=== PATIENT | male | born 1955 | race Caucasian/White ===

== ENCOUNTER 2020-03-01 20:13 | Inpatient (IN) | payer MEDICARE ==
[~2020-03-01] VITALS: Ht 177.8 cm; Wt 60.6 kg
[2020-03-01 20:00] VITALS: BP 160/84
--- NOTE | 2020-03-01 20:00 | NUR ---
Pt came in by EMS, oriented to himself, but confused of where he was. 4Ls NC with saturations of 98%. Titrated down to 2L. SR/ST on monitor. Shi to dd clear. Chest tube on right lateral side. 2 bags of belongings- one with medications that were sent to pharmacy and the other with clothes. PIV x2 saline locked. Called Dr. Mendoza for orders.
[2020-03-01] MEDS ORDERED: ONDANSETRON PF 4 MG/2 ML VIAL. IVP PRN (20:45)
[2020-03-01] MEDS: MORPHINE SULFATE 4 MG/ML VIAL. IV PRN (20:52)
[2020-03-01 21:00] VITALS: BP 150/79
[2020-03-01 21:03] LABS: BASO # 0.1 x10^3/uL (0.0-0.2); BASO % 1 % (0-3); EOS % 0 % (0-3); HEMATOCRIT 30.2 % (39.0-53.0); HEMOGLOBIN 9.9 g/dL (13.0-17.5); LYMPH # 0.7 x10^3/uL (1.0-4.8); LYMPH % 6 % (24-48); MEAN CORPUSCULAR HEMOGLOBIN 27 pg (25-35); MEAN CORPUSCULAR HGB CONC 33 g/dL (31-37); MEAN CORPUSCULAR VOLUME 83 fL (79-100); MONO % 9 % (0-9); NEUT # 9.7 x10^3/uL (1.8-7.7); NEUT % 85 % (31-73); PLATELET COUNT 424 x10^3/uL (140-400); RED BLOOD COUNT 3.62 x10^6/uL (4.30-5.70); RED CELL DISTRIBUTION WIDTH 17.4 % (11.5-14.5); WHITE BLOOD COUNT 11.4 x10^3/uL (4.0-11.0)
[2020-03-01 21:12] LABS: CALCIUM 8.7 mg/dL (8.5-10.1); CREATININE 0.8 mg/dL (0.7-1.3); POTASSIUM 3.7 mmol/L (3.5-5.1)
--- NOTE | 2020-03-01 21:13 | RAD ---
Exam: Chest one view INDICATION: Chest tube insertion TECHNIQUE: Frontal view of the chest Comparisons: Radiograph same day FINDINGS: Right-sided chest tube, which is been advanced now terminates in the left infrahilar region. The cardiomediastinal silhouette and pulmonary vessels are within normal limits. The lung and pleural spaces are clear. No pneumothorax is seen. Extensive subcutaneous emphysema is noted. IMPRESSION: Chest tube as described above. Electronically signed by: Chalino Garcia MD (03/01/2020 9:10 PM) [id number]
[2020-03-01] MEDS ORDERED: SERT100T PO (21:22)
[2020-03-01] MEDS ORDERED: DOCU50LI PO (21:22)
[2020-03-01] MEDS ORDERED: SENN8.6T11 PO (21:22)
[2020-03-01] MEDS ORDERED: CHLO15MO2 PO (21:22)
[2020-03-01] MEDS ORDERED: HYDR25TA PO (21:22)
[2020-03-01] MEDS ORDERED: OLOD4MIS2 IH (21:22)
[2020-03-01] MEDS ORDERED: TRAM50TA PO (21:22)
[2020-03-01] MEDS ORDERED: CLONAZEPAM1 MG PO (21:22)
[2020-03-01] MEDS ORDERED: MONT10TA49 PO (21:22)
[2020-03-01] MEDS ORDERED: AMLO10TA8 PO (21:22)
[2020-03-01] MEDS ORDERED: PANT40TA77 PO (21:22)
[2020-03-01] MEDS ORDERED: NYST100054 PO (21:22)
[2020-03-01] MEDS ORDERED: TAMS0.4C97 PO (21:22)
[2020-03-01] MEDS ORDERED: ACET325T21 PO (21:22)
[2020-03-01] MEDS ORDERED: BISM262T94 PO (21:22)
[2020-03-01] MEDS ORDERED: FERR-3 PO (21:22)
[2020-03-01] MEDS ORDERED: POLY2500 MC (21:22)
[2020-03-01] MEDS ORDERED: SUCR1ORA14 PO (21:22)
[2020-03-01] MEDS: MEROPENEM 1 GM in IV NORMAL SALINE 100ML 100 ML IV SCH (21:51)
[2020-03-01 22:00] VITALS: BP 163/86
[2020-03-01] MEDS ORDERED: VANCOMYCIN 1.5 GM in IV NORMAL SALINE 500ML BAG 500 ML IV ONE (22:00)
[2020-03-01 23:00] VITALS: BP 154/76
[2020-03-01] MEDS ORDERED: HYDROmorphone 2 MG/ML VIAL IVP PRN (23:15)
[2020-03-02] VITALS (23 sets, daily range): BP systolic 90–156; BP diastolic 52–93
[2020-03-02] MEDS: DEXMEDETOMIDINE 400 MCG in IV NORMAL SALINE 100ML 96 ML IV PRN ×3 (00:52→17:00)
[2020-03-02] MEDS: HALOPERIDOL LACTATE 5 MG/ML VIAL. IVP PRN ×2 (00:52→05:17)
--- NOTE | 2020-03-02 01:00 | NUR ---
Pt began to pull at this wetzel. Started to yell about wanting a cigarette, Joel and I told him repeatedly he can not because he is in the hospital and has 2 broken ribs. He became aggressive and continued to try and get out of bed. Called Dr. Mendoza with situation and was prescribed Precedex drip. Haldol was given as well. Pt is now resting stable, after titrating precedex drip. Vitals are stable.
[2020-03-02] MEDS: VANCOMYCIN PER PHARMACY MC PRN (01:31)
--- NOTE | 2020-03-02 01:31 | NUR ---
Pharmacy Vancomycin Dosing Note S:Consulted to monitor and dose vancomycin started 03/01/20. O:NAT BEYER is a 64 year old M with Empiric . Height: 5 feet, 10 inches Weight: 60.8 kg Pinch Body Weight: 73.00 Adjusted Body Weight: 68.12 Dosing Weight: Actual Other Antibiotics: MERREM 1 GM Q8H LABS: Last BUN: 9 Last Creatinine: 0.8 Creatinine Clearance: 63 mL/min Last WBC: 11.4 Last Procalcitonin: Tmax (past 24 hours): 98.4 Microbiology: I/O: Drug Levels: Last level: on at Last dose given 03/01/20 at 2200 Vancomycin Dosing: Loading Dose: 1500 mg x1 Dosing Weight: Actual Target Trough: 15-20 A: Based on: WT AND CRCL P: 1. Begin Vancomycin 1000 mg IV q12h 2. Follow up Trough level on 03/03/20 at 0930 3. Pharmacy will continue to monitor, follow and adjust therapy as needed. HAL HERMOSILLO RPH, 03/02/20 0131 Signed: 03/02/20 at 0132 by HAL HERMOSILLO RPH PHA
[2020-03-02] MEDS: MEROPENEM 1 GM in IV NORMAL SALINE 100ML 100 ML IV SCH ×3 (06:29→20:59)
[2020-03-02] MEDS ORDERED: ALBU2.5V8 IH (07:17)
--- NOTE | 2020-03-02 07:34 | CONS ---
DATE OF CONSULTATION: 03/02/2020 REASON FOR CONSULTATION: I was asked to see this 64-year-old gentleman for acute respiratory failure, pneumothorax, rib fractures. HISTORY OF PRESENT ILLNESS: The patient has been agitated, so now he is on Precedex. He does not answer too many of my questions. He appears comfortable. He is on 2 liters of oxygen. All of the information was obtained from nursing staff and chart. Apparently, he is a heavy smoker, has COPD and multiple other medical problems. Per his roommate, he was angry and took his psych medication and sleeping pills 3 times more than usual. He became dizzy and had a syncopal episode or fall and was taken to [facility] Emergency Room and was found to have right pneumothorax and rib fractures. A chest tube was placed, which was not in good position, so another one placed which was in good position. The lung expanded after the second chest tube. This was done around 5:00 p.m. yesterday. He was transferred to [facility] yesterday around 8:00 p.m. He is on oxygen. He is on Precedex. He appears comfortable. He does not answer my questions. He does have cough. His exposure to COVID-19 is not known. Testing is done. PAST MEDICAL HISTORY: Alcoholism, anemia, anxiety, arthritis, coronary artery disease, COPD, CVA, gastroesophageal reflux disease, hypertension, pancreatitis, TIA, sleep, posttraumatic stress disorder, bipolar disorder, noncompliant. ALLERGIES: PENICILLIN, SULFA, ASPIRIN, LABETALOL, QUETIAPINE AND ZOLPIDEM. MEDICATIONS: Currently, he is on vancomycin, Precedex, meropenem. SOCIAL HISTORY: Positive for smoking and alcohol. FAMILY HISTORY: Unable to obtain. The patient does not answer my questions. FAMILY HISTORY: Unable to obtain. I have discussed the patient with RN and RT as mentioned as above. PHYSICAL EXAMINATION: GENERAL: This is a chronically ill-appearing gentleman. He is alert, but does not answer my questions. He is on Precedex. VITAL SIGNS: His O2 saturation on 2 liters of oxygen is 98%, respiratory rate 16, heart rate 79, blood pressure 104/70, and temperature 98.3. HEENT: He has a laceration on his right side of his head. Normocephalic. He appears comfortable. He is on oxygen. CARDIOVASCULAR: Regular rate and rhythm. CHEST: He has a chest tube on the right side. ABDOMEN: There is no paradoxical abdominal motion. EXTREMITIES: No edema. SKIN: He has tattoos. LABORATORY DATA: I reviewed the following lab data; WBC 11.4, hemoglobin 9.9, platelets 424. Sodium 136, potassium 3.7, chloride 101, CO2 of 30, BUN 9, creatinine 0.8. In [facility], his INR 1. Urine drug screen is negative. ABG on 03/01 at 1:00 a.m., pH 7.4, pCO2 of 30, pO2 of 53 on room air. Salicylic acid less than 2.8. Alcohol less than 10. CT of the head, no acute abnormality. Chest x-ray as mentioned as above. IMPRESSION: 1. Acute respiratory failure, multifactorial in etiology including right pneumothorax, rib fractures ? lung contusion, chronic obstructive pulmonary disease. 2. Status post fall. 3. Abnormal chest x-ray. 4. Rib fractures. 5. Right pneumothorax, status post chest tube placement. 6. Chronic obstructive pulmonary disease. 7. History of cerebrovascular accident. 8. B Coronary artery disease. 9. Alcohol abuse per history. 10. Hypertension. 11. COVID-19 PUI. 12. Tobacco habituation. PLAN AND RECOMMENDATIONS: 1. Titrate FiO2 to keep O2 saturation more than 92%. 2. Follow up COVID-19 testing. 3. Continue chest tube. We will do a chest x-ray. 4. Continue antibiotic. 5. Add Pepcid for stress ulcer prophylaxis. 6. SCDs for DVT prophylaxis. 7. Start bronchodilator when his COVID-19 testing is back and is negative. 8. The findings and recommendations were discussed with RN. Thank you very much for allowing me to participate in care of this very nice gentleman. MALINDA MARIE M.D. : Nava JOB#: [id number] / [id number]
[2020-03-02] MEDS ORDERED: ALBUTEROL SULFATE 2.5 MG/3 ML NEBU. INH PRN (09:15)
[2020-03-02] MEDS ORDERED: SENNOSIDES 8.6 MG TABLET PO PRN (09:15)
[2020-03-02] MEDS: ENOXAPARIN 40 MG/0.4 ML SYRINGE. SQ SCH (09:40)
[2020-03-02] MEDS: VANCOMYCIN 1 GM in IV NORMAL SALINE 250ML 250 ML IV SCH ×2 (09:43→22:24)
[2020-03-02] MEDS: FERROUS SULFATE 325 MG TABLET. PO SCH (09:44)
[2020-03-02] MEDS: TAMSULOSIN 0.4 MG CAP.ER.24H. PO SCH (09:44)
[2020-03-02] MEDS: PANTOPRAZOLE 40 MG TABLET.DR. PO SCH (09:44)
[2020-03-02] MEDS: amLODIPine BESYLATE 10 MG TABLET PO SCH (09:45)
--- NOTE | 2020-03-02 09:51 | HP ---
ADMIT DATE: 03/02/2020 HISTORY OF PRESENT ILLNESS: The patient is a 64-year-old male patient, who was brought to the Emergency Room of [facility] with syncope, mental status change, and head injury after an overdose of night medication x 3. He was reported that his roommate was angry that his friend would not take him to the boat to [place]. He took 3 times his night sleeping medication and psych medication. Shortly thereafter, he became dizzy and has syncopal episode. The patient fell and struck his right side of his head and include the 1 cm laceration. He normally follows at the [facility]. Apparently, the [facility] declined the patient because of the acuity and when he arrived to the Emergency Room of [facility], he was moving all his extremities to noxious stimuli. His pupils are pinpoint. The patient has an extensive past medical history. He was extensively investigated including lab work and imaging studies and was admitted to the ICU of [facility] with a syncopal episode. When I saw him in the ICU, he was clearly very short of breath and prior to that, The nursing staff contacted me as he was clearly in respiratory distress and we did do actually his initial blood gases. His second blood gas while in the ICU showed a pH of 733, pCO2 of 44, pO2 of 68, bicarbonate of 23, and oxygen saturation was 91% on FiO2 of 100%. We did also a chest x-ray, which basically showed that there is a moderate right sided pneumothorax in the right base and likely anteriorly chest wall gas is noted laterally in the right. There are nondisplaced fracture of multiple right sided ribs. He has hyperinflation consistent with chronic obstructive pulmonary disease. There is no clear pleural effusion. The heart is not enlarged. There is atherosclerotic calcification of the aorta. Surgical clips are noted at the hiatus and the impression was the patient has small to moderate right pneumothorax with right chest wall gas multiple nondisplaced right sided rib fractures and chronic obstructive pulmonary disease. I spoke with the ER physician and he placed a chest tube and a repeat chest x-ray showed that there is enlargement of the right side pneumothorax. The chest tube was improperly placed. Therefore, he has had another chest tube placed. A repeat chest x-ray showed that there is cardiomediastinal silhouette and pulmonary vessels are within normal limits. There is expansion of the right lung without pneumothorax identified and extensive subcutaneous air noted in the right flank area and therefore, the patient was transferred to [facility] ICU for management of the chest tube to consult the clerk telegraph service and perhaps also the blowing weasand. At that time when he was at the ICU of [facility], the patient was extremely lethargic and was unable to give us any useful information. Most of the information that was given to the Emergency Room physician was came from his roommate. PAST MEDICAL HISTORY: Significant for hypertension, gastroesophageal reflux disease, TIA, CVA, coronary artery disease, history of pancreatitis, arthritis, anxiety, anemia, alcoholism, has also posttraumatic stress disorder, sleep apnea, inactive tuberculosis, antisocial personality disorder and noncompliance with medication and erectile dysfunction. PAST SURGICAL HISTORY: Significant for carotid endarterectomy and perhaps hiatal hernia repair. FAMILY HISTORY: Noncontributory. SOCIAL HISTORY: He lives with his roommate. He continued to smoke and drink alcohol. REVIEW OF SYSTEMS: The patient continued to complain of right sided chest pain and shortness of breath. ALLERGIES: HE IS ALLERGIC TO IODINATED CONTRAST MEDIA, PENICILLIN, SULFA, ASPIRIN, QUETIAPINE, SIMVASTATIN, TRAMADOL, AND AMBIEN. MEDICATIONS: He is on nystatin suspension 5 mL 4 times a day, Striverdi Respimat 4 grams 1 inhalation once a day, tamsulosin 0.4 mg daily, ferrous sulfate 325 mg twice a day, amlodipine besylate 10 mg daily, tramadol 50 mg twice a day, acetaminophen 650 mg 4 times a day, clonazepam 1 mg 3 times a day, sertraline 100 mg daily, hydroxyzine 25 mg 3 times a day, calcium with vitamin D one tablet twice a day, Singulair 10 mg once a day, chlorhexidine gluconate (Peridex) 15 mL twice a day, bismuth subsalicylate (Kaopectate) one tablet 3 times a day, Colace 50 mg daily, senna 2 tablets 3 times a day, sucralfate 1 gram in 10 mL 4 times a day, Protonix 40 mg once a day, polyethylene glycol 17 grams. PHYSICAL EXAMINATION: GENERAL: When I saw him this morning, he is definitely more awake, but continued to be confused and continued to be on Precedex because he was very aggressive and combative this morning. When I examined him, he was pale, but no jaundice, cyanosis or thyromegaly. No jugular venous distention. No limb edema. VITAL SIGNS: His heart rate was 63, blood pressure was 99/52, temperature 98.3, respiratory rate oxygen saturation was 100% on 2 liters of oxygen. HEAD, EYES, EARS, NOSE AND THROAT: Showed normocephalic, atraumatic. NECK: Supple. CARDIAC: Normal first and second heart sounds. No gallop or murmur. CHEST: Shows central trachea, equal bilateral chest expansion, air entry, vesicular sounds with bilateral scattered rhonchi. I could not appreciate any crepitation. ABDOMEN: Scaphoid, soft, nontender. No guarding or rigidity. No organomegaly. All hernial orifices intact. Bowel sounds normal. NEUROLOGIC: He was definitely more awake today, although continued to be confused and continued to require Precedex for agitation and combativeness. All his cranial nerves are intact. EXTREMITIES: He moves extremities without difficulty. He has right sided chest tube to underwater seal. LABORATORY DATA: Showed a white cell count of 11,400, hemoglobin 9.9, hematocrit 30, MCV 83, and platelet count of 124,000. Serum sodium was 136, potassium 3.7, chloride 101, bicarbonate 30, anion gap of 5, BUN 9, creatinine 0.9, estimated GFR was 97 mL per minute. His glucose was 132 and calcium was 8.7. His chest x-ray this morning showed that the cardiomediastinal silhouette and pulmonary vessels are within normal limits. The lungs and pleural spaces are clear. No pneumothorax seen. Extensive subcutaneous emphysema is noted. ASSESSMENT AND PLAN: The patient was continued on IV antibiotic in the form of meropenem and vancomycin. Continue with morphine and I did consult the clerk telegraph service for management of his chest tube and also the blowing weasand as he seemed to be also at least When I saw him on yesterday at [facility] to be in pulmonary edema. Meanwhile, we will continue to oxygen supplementation and titrate. Accordingly, I would reconcile his medications and start him on Protonix for GI prophylaxis and Lovenox for deep venous thrombosis prophylaxis. Dictation Ends Here ENRIQUE BRAGG MD DR: CLARY/soraya JOB#: [id number] / [id number]
[2020-03-02] MEDS: DOCUSATE 100 MG/10 ML SOLUTION. PO SCH (10:00)
--- NOTE | 2020-03-02 10:17 | PDOC2 ---
CONSULT Date of Consult Date of Consult DATE: 03/02/20 TIME: 10:11 Reason for Consult Reason for Consult: Respiratory failure, history of coronary artery disease Referring Physician Referring Physician: Dr. Mendoza Identification/Chief Complaint Chief Complaint Mental status changes Source Source: Chart review History of Present Illness Reason for Visit: The patient is a 64-year-old male who by report took extra doses of his ps ychiatric and sleeping medications last night and had a syncopal episode. Patient fell striking his chest and apparently his head. He was transported to [facility] where a right-sided pneumothorax was diagnosed. Patient also had right-sided rib fractures. 2 chest tubes were placed. He was then transferred to [place] for further treatment. Patient apparently was quite agitated during his initial admission. He has a history of alcohol abuse, posttraumatic stress disorder and probable other psychiatric conditions which are followed at the [facility]. He has been sedated and is now resting comfortably in bed. His history is also significant for coronary artery disease of uncertain type, hypertension and a CVA. Past Medical History Cardiovascular: CAD, HTN, Syncope Pulmonary: COPD GI: GERD Psych: Other (Posttraumatic stress disorder) Past Surgical History Past Surgical History: Other (Carotid endarterectomy) Family History Family History: Other Social History 2 packs per day ALCOHOL: heavy Current Medications Current Medications Current Medications Morphine Sulfate (Morphine Sulfate) 4 mg PRN Q4HRS PRN IV PAIN Last administered on 03/01/20at 20:52; Start 03/01/20 at 20:45 Ondansetron HCl (Zofran) 4 mg PRN Q4HRS PRN IVP NAUSEA/VOMITING; Start 03/01/20 at 20:45 Meropenem 1 gm/ Sodium Chloride 100 ml @ 200 mls/hr Q8HRS IV Last administered on 03/02/20at 06:29; Start 03/01/20 at 22:00 Vancomycin HCl (Vanco Per Pharmacy) 1 each PRN DAILY PRN MC SEE COMMENTS Last administered on 03/02/20at 01:31; Start 03/01/20 at 21:30 Vancomycin HCl 1.5 gm/Sodium Chloride 500 ml @ 250 mls/hr 1X ONCE IV Last administered on 03/01/20at 22:39; Start 03/01/20 at 22:00; Stop 03/01/20 at 23:59; Status DC Hydromorphone HCl (Dilaudid) 2 mg PRN Q4HRS PRN IVP SEVERE PAIN 7-10 Last administered on 03/01/20at 23:33; Start 03/01/20 at 23:15 Haloperidol Lactate (Haldol Inj) 5 mg PRN Q6HRS PRN IVP AGITATION Last administered on 03/02/20at 05:17; Start 03/02/20 at 00:45 Dexmedetomidine HCl 400 mcg/ Sodium Chloride 100 ml @ 0 mls/hr CONT PRN IV Agitation Last administered on 03/02/20at 05:18; Start 03/02/20 at 00:45 Vancomycin HCl 1 gm/Sodium Chloride 250 ml @ 250 mls/hr Q12H IV Last administered on 03/02/20at 09:43; Start 03/02/20 at 10:00 Vancomycin HCl (Vancomycin Trough Level) 1 each 1X ONCE MC ; Start 03/03/20 at 09:30; Stop 03/03/20 at 09:31 Albuterol Sulfate (Ventolin Neb Soln) 3 mg PRN Q4HRS PRN INH wheezing; Start 03/02/20 at 09:15 Amlodipine Besylate (Norvasc) 10 mg DAILY PO ; Start 03/02/20 at 10:00 Docusate Sodium (Colace Solution) 50 mg DAILY PO ; Start 03/02/20 at 10:00 Ferrous Sulfate (Feosol) 325 mg DAILY PO Last administered on 03/02/20at 09:44; Start 03/02/20 at 10:00 Hydroxyzine HCl (Atarax) 25 mg TID PO ; Start 03/02/20 at 14:00 Montelukast Sodium (Singulair) 10 mg HS PO ; Start 03/02/20 at 21:00 Pantoprazole Sodium (Protonix) 40 mg DAILYAC PO Last administered on 03/02/20at 09:44; Start 03/02/20 at 10:00 Sennosides (Senna) 17.2 mg PRN TID PRN PO CONSTIPATION; Start 03/02/20 at 09:15 Sucralfate (Carafate) 1 gm DAILY PO ; Start 03/03/20 at 09:00 Tamsulosin HCl (Flomax) 0.4 mg DAILY PO Last administered on 03/02/20at 09:44; Start 03/02/20 at 10:00 Clonazepam (KlonoPIN) 1 mg TID PO ; Start 03/02/20 at 14:00 Non-Formulary Medication (Olodaterol HCl (Striverdi Respimat)) 4 gm DAILY IH ; Start 03/03/20 at 09:00; Status UNV Polyethylene Glycol (miraLAX PACKET) 17 gm PRN DAILY PRN PO CONSTIPATION; Start 03/03/20 at 09:00 Sertraline HCl (Zoloft) 100 mg DAILY PO ; Start 03/03/20 at 09:00 Enoxaparin Sodium (Lovenox 40mg Syringe) 40 mg Q24H SQ Last administered on 03/02/20at 09:40; Start 03/02/20 at 09:15 Active Scripts Active Reported Proair Hfa Inhaler (Albuterol Sulfate) 8.5 Gm Hfa.aer.ad 2 Puff IH PRN Q4-6HRS PRN 21 Days Polyethylene Glycol 3350 2,500 Gm Powder 2,500 Gm MC PRN DAILY PRN Pantoprazole Sodium (Pantoprazole Sodium) 40 Mg Tablet.dr 40 Mg PO DAILYAC Sucralfate 1 Gm/10 Ml Oral.susp 10 Ml PO DAILY Senna Laxative (Sennosides) 8.6 Mg Tablet 2 Tab PO PRN TID PRN 30 Days Docusate Sodium 50 Mg/5 Ml Liquid 50 Mg PO DAILY Kaopectate (Bismuth Subsalicylate) 262 Mg Tablet 262 Mg PO TID Peridex (Chlorhexidine Gluconate) 15 Ml Mouthwash 15 Ml PO BID 30 Days Singulair Tablet (Montelukast Sodium) 10 Mg Tablet 10 Mg PO HS Hydroxyzine Hcl 25 Mg Tablet 1 Tab PO TID Zoloft (Sertraline Hcl) 100 Mg Tablet 1 Tab PO DAILY Clonazepam 1 Mg Tablet 1 Mg PO TID Acetaminophen 325 Mg Tablet 3 Tab PO PRN Q6-8HRS PRN 24 Days Tramadol Hcl 50 Mg Tablet 50 Mg PO PRN BID PRN Amlodipine Besylate 10 Mg Tablet 10 Mg PO DAILY Amlodipine Besylate 10 Mg Tablet 10 Mg PO DAILY Ferrousul (Ferrous Sulfate) 325 Mg Tablet 1 Tab PO DAILY 30 Days Flomax (Tamsulosin Hcl) 0.4 Mg Cap.er.24h 0.4 Mg PO DAILY Striverdi Respimat (Olodaterol HCl) 4 Gm Mist.inhal 4 Gm IH DAILY Nystatin 100,000 Unit/1 Ml Oral.susp 5 Ml PO QID Allergies Allergies: Coded Allergies: Penicillins (Verified Allergy, Intermediate, 03/01/20) Sulfa (Sulfonamide Antibiotics) (Verified Allergy, Intermediate, 03/01/20) aspirin (Verified Allergy, Intermediate, 03/01/20) labetalol (Verified Allergy, Intermediate, 03/01/20) quetiapine (Verified Allergy, Intermediate, 03/01/20) zolpidem (Verified Allergy, Intermediate, 03/01/20) ROS Review of System Not obtainable at this time. Vitals VITALS Vital Signs Date Time Temp Pulse Resp B/P (MAP) Pulse Ox O2 Delivery O2 Flow Rate FiO2 03/02/20 09:45 79 113/57 03/02/20 07:30 Nasal Cannula 2.0 03/02/20 07:00 16 100 03/02/20 04:00 98.3 98.3 Labs Labs Laboratory Tests Test 03/01/20 20:52 White Blood Count 11.4 x10^3/uL (4.0-11.0) Red Blood Count 3.62 x10^6/uL (4.30-5.70) Hemoglobin 9.9 g/dL (13.0-17.5) Hematocrit 30.2 % (39.0-53.0) Mean Corpuscular Volume 83 fL (79-100) Mean Corpuscular Hemoglobin 27 pg (25-35) Mean Corpuscular Hemoglobin Concent 33 g/dL (31-37) Red Cell Distribution Width 17.4 % (11.5-14.5) Platelet Count 424 x10^3/uL (140-400) Neutrophils (%) (Auto) 85 % (31-73) Lymphocytes (%) (Auto) 6 % (24-48) Monocytes (%) (Auto) 9 % (0-9) Eosinophils (%) (Auto) 0 % (0-3) Basophils (%) (Auto) 1 % (0-3) Neutrophils # (Auto) 9.7 x10^3/uL (1.8-7.7) Lymphocytes # (Auto) 0.7 x10^3/uL (1.0-4.8) Monocytes # (Auto) 1.0 x10^3/uL (0.0-1.1) Eosinophils # (Auto) 0.0 x10^3/uL (0.0-0.7) Basophils # (Auto) 0.1 x10^3/uL (0.0-0.2) Sodium Level 136 mmol/L (136-145) Potassium Level 3.7 mmol/L (3.5-5.1) Chloride Level 101 mmol/L (98-107) Carbon Dioxide Level 30 mmol/L (21-32) Anion Gap 5 (6-14) Blood Urea Nitrogen 9 mg/dL (8-26) Creatinine 0.8 mg/dL (0.7-1.3) Estimated GFR (Cockcroft-Gault) 97.0 Glucose Level 132 mg/dL (70-99) Calcium Level 8.7 mg/dL (8.5-10.1) Laboratory Tests Test 03/01/20 20:52 White Blood Count 11.4 x10^3/uL (4.0-11.0) Red Blood Count 3.62 x10^6/uL (4.30-5.70) Hemoglobin 9.9 g/dL (13.0-17.5) Hematocrit 30.2 % (39.0-53.0) Mean Corpuscular Volume 83 fL (79-100) Mean Corpuscular Hemoglobin 27 pg (25-35) Mean Corpuscular Hemoglobin Concent 33 g/dL (31-37) Red Cell Distribution Width 17.4 % (11.5-14.5) Platelet Count 424 x10^3/uL (140-400) Neutrophils (%) (Auto) 85 % (31-73) Lymphocytes (%) (Auto) 6 % (24-48) Monocytes (%) (Auto) 9 % (0-9) Eosinophils (%) (Auto) 0 % (0-3) Basophils (%) (Auto) 1 % (0-3) Neutrophils # (Auto) 9.7 x10^3/uL (1.8-7.7) Lymphocytes # (Auto) 0.7 x10^3/uL (1.0-4.8) Monocytes # (Auto) 1.0 x10^3/uL (0.0-1.1) Eosinophils # (Auto) 0.0 x10^3/uL (0.0-0.7) Basophils # (Auto) 0.1 x10^3/uL (0.0-0.2) Sodium Level 136 mmol/L (136-145) Potassium Level 3.7 mmol/L (3.5-5.1) Chloride Level 101 mmol/L (98-107) Carbon Dioxide Level 30 mmol/L (21-32) Anion Gap 5 (6-14) Blood Urea Nitrogen 9 mg/dL (8-26) Creatinine 0.8 mg/dL (0.7-1.3) Estimated GFR (Cockcroft-Gault) 97.0 Glucose Level 132 mg/dL (70-99) Calcium Level 8.7 mg/dL (8.5-10.1) Images Images Right sided pneumothorax and rib fractures. Assessment/Plan Assessment/Plan 1. Probable overdose. Reports of patient taking in excess of his home medications followed by agitation and a fall. Patient's rhythm is stable. After sedation he is resting reasonably comfortable in bed. We will continue to monitor. 2. Respiratory failure with a right pneumothorax status post 2 chest tubes. Pulmonary status is improved. He is followed by the pulmonology service. We will check an echo after COVID testing is available. 3. History of psychiatric issues by report including posttraumatic stress disorder. Will attempt to obtain further old records. 4. Reported history of coronary disease and carotid disease. There is no reports of chest pain during his admission. We will continue to monitor and obtain further old records. 5. History of a CVA. 6. History of heavy alcohol use. 7. COVID testing pending. Thank you for allowing us to participate in the care of your patient. JOYCELYN ZAMARRIPA MD Mar 02, 2020 10:17
[2020-03-02] MEDS: MORPHINE SULFATE 4 MG/ML VIAL. IV PRN ×3 (10:36→23:41)
[2020-03-02] MEDS: ALBUTEROL SULFATE 8GM INHALER. INH PRN ×3 (11:23→20:39)
[2020-03-02 11:27] LABS: BASO # 0.1 x10^3/uL (0.0-0.2); BASO % 1 % (0-3); EOS % 0 % (0-3); HEMATOCRIT 28.3 % (39.0-53.0); HEMOGLOBIN 9.4 g/dL (13.0-17.5); LYMPH # 0.8 x10^3/uL (1.0-4.8); LYMPH % 7 % (24-48); MEAN CORPUSCULAR HEMOGLOBIN 28 pg (25-35); MEAN CORPUSCULAR HGB CONC 33 g/dL (31-37); MEAN CORPUSCULAR VOLUME 84 fL (79-100); MONO % 10 % (0-9); NEUT # 8.9 x10^3/uL (1.8-7.7); NEUT % 82 % (31-73); PLATELET COUNT 381 x10^3/uL (140-400); RED BLOOD COUNT 3.38 x10^6/uL (4.30-5.70); RED CELL DISTRIBUTION WIDTH 17.8 % (11.5-14.5); WHITE BLOOD COUNT 10.9 x10^3/uL (4.0-11.0)
[2020-03-02 11:40] LABS: ALBUMIN 2.7 g/dL (3.4-5.0); ALBUMIN/GLOBULIN RATIO 0.8 (1.0-1.7); CALCIUM 8.4 mg/dL (8.5-10.1); CREATININE 0.9 mg/dL (0.7-1.3); GFR 84.7; POTASSIUM 3.5 mmol/L (3.5-5.1); TOTAL BILIRUBIN 0.5 mg/dL (0.2-1.0); TOTAL PROTEIN 6.1 g/dL (6.4-8.2)
[2020-03-02] MEDS: hydrOXYzine 25 MG TABLET PO SCH ×2 (14:14→20:39)
[2020-03-02] MEDS: clonazePAM 0.5 MG TABLET PO SCH ×2 (14:14→20:39)
[2020-03-02] MEDS: MONTELUKAST SODIUM 10 MG TABLET. PO SCH (20:39)
[2020-03-03] VITALS (19 sets, daily range): BP systolic 109–184; BP diastolic 52–101
[2020-03-03] MEDS: MORPHINE SULFATE 4 MG/ML VIAL. IV PRN ×4 (04:36→17:36)
[2020-03-03] MEDS: ALBUTEROL SULFATE 8GM INHALER. INH PRN (04:36)
[2020-03-03] MEDS: MEROPENEM 1 GM in IV NORMAL SALINE 100ML 100 ML IV SCH ×3 (05:34→22:27)
[2020-03-03] MEDS: SERTRALINE 50 MG TABLET. PO SCH (08:13)
[2020-03-03] MEDS: ENOXAPARIN 40 MG/0.4 ML SYRINGE. SQ SCH (08:13)
[2020-03-03] MEDS: hydrOXYzine 25 MG TABLET PO SCH ×3 (08:13→21:28)
[2020-03-03] MEDS: FERROUS SULFATE 325 MG TABLET. PO SCH (08:13)
[2020-03-03] MEDS: clonazePAM 0.5 MG TABLET PO SCH ×3 (08:14→21:28)
[2020-03-03] MEDS: PANTOPRAZOLE 40 MG TABLET.DR. PO SCH (08:14)
[2020-03-03] MEDS: SUCRALFATE 1 GM/10 ML ORAL.SUSP. PO SCH (08:14)
[2020-03-03] MEDS: TAMSULOSIN 0.4 MG CAP.ER.24H. PO SCH (08:14)
[2020-03-03] MEDS: amLODIPine BESYLATE 10 MG TABLET PO SCH (08:14)
[2020-03-03] MEDS: HALOPERIDOL LACTATE 5 MG/ML VIAL. IVP PRN ×3 (08:15→22:24)
[2020-03-03] MEDS: DOCUSATE 100 MG/10 ML SOLUTION. PO SCH (08:15)
--- NOTE | 2020-03-03 08:52 | PN ---
DATE: 03/03/2020 SUBJECTIVE: The patient is a 64-year-old male patient who was transferred from [facility] as he sustained traumatic pneumothorax, multiple right-sided rib fractures. He has had a chest tube and his lung has expanded completely yesterday. His chest tube continued to suction. He continued to be on Precedex. He was very combative and aggressive yesterday. PHYSICAL EXAMINATION: GENERAL: He is very lethargic when I saw him this morning, pale, no jaundice, cyanosis or thyromegaly. No jugular venous distention. No lower limb edema. VITAL SIGNS: His heart rate was 80, blood pressure 109/52, temperature was 99.2, respiratory rate was 17 and oxygen saturation was 97% on 2 liters of oxygen. HEAD, EYES, EARS, NOSE AND THROAT: Showed normocephalic, atraumatic. NECK: Supple. HEART: Showed normal first and second heart sounds. No gallop, rub or murmur. CHEST: Shows central trachea, equal bilateral chest expansion, air entry, vesicular sounds. He has extensive subcutaneous emphysema on the right side of the chest. There is equal air entry. I could not appreciate any crepitation or rhonchi. ABDOMEN: Scaphoid, soft, nontender. NEUROLOGIC: He was somewhat lethargic, but arousable. All cranial nerves are intact. He moves extremities without difficulty. His intake was 675, output was 955. LABORATORY DATA: Today's labs are still pending at the time of this dictation. As of yesterday, his white cell count was 10,900; hemoglobin 9.4; hematocrit 28; MCV 84 and platelet count 381,000. His chemistry showed a serum sodium 135, potassium 3.5, chloride 101, bicarbonate 27, anion gap of 7, BUN 12, creatinine 0.9, estimated GFR was 84 mL per minute, his glucose 103, calcium was 8.4. Total bilirubin, AST, ALT, alkaline phosphatase were normal. Total protein was 6.1, albumin was 2.7. Apparently, his COVID-19 by PCR was negative. ASSESSMENT: 1. Altered mental status with syncopal episode and fall, sustaining right-sided multiple rib fractures. 2. Traumatic pneumothorax, status post chest tube placement. The patient has multiple other medical problems including hypertension, gastroesophageal reflux disease, coronary artery disease, anemia. PLAN: To continue with chest tube to suction and discontinue the Precedex. The patient is negative for COVID-19 and can be transferred to the floor. I will repeat his labs today and also chest x-ray to make sure his lung is expanded. ENRIQUE BRAGG MD DR: CLARY/soraya JOB#: [id number] / [id number]
[2020-03-03] MEDS ORDERED: POLYETHYLENE GLYCOL 3350 17 GM PACKET. PO PRN (09:00)
[2020-03-03] MEDS ORDERED: NON FORMULARY ITEM (Olodaterol HCl (Striverdi Respimat) 4 GM) IH SCH (09:00)
[2020-03-03 09:09] LABS: HEMATOCRIT 29.3 % (39.0-53.0); HEMOGLOBIN 9.7 g/dL (13.0-17.5); RED BLOOD COUNT 3.51 x10^6/uL (4.30-5.70); RED CELL DISTRIBUTION WIDTH 17.3 % (11.5-14.5); WHITE BLOOD COUNT 9.7 x10^3/uL (4.0-11.0)
[2020-03-03 09:24] LABS: VANC TR 9.4 mcg/mL (10.0-20.0)
[2020-03-03 09:25] LABS: ALBUMIN 2.7 g/dL (3.4-5.0); ALBUMIN/GLOBULIN RATIO 0.8 (1.0-1.7); CALCIUM 8.5 mg/dL (8.5-10.1); CREATININE 0.7 mg/dL (0.7-1.3); GFR 113.2; POTASSIUM 3.1 mmol/L (3.5-5.1); TOTAL BILIRUBIN 0.4 mg/dL (0.2-1.0); TOTAL PROTEIN 6.2 g/dL (6.4-8.2)
[2020-03-03] MEDS: VANCOMYCIN 1 GM in IV NORMAL SALINE 250ML 250 ML IV SCH ×2 (10:02→17:39)
[2020-03-03] MEDS: VANCOMYCIN PER PHARMACY MC PRN ×2 (10:12→10:22)
--- NOTE | 2020-03-03 10:16 | NUR ---
Pharmacy Vancomycin Dosing Note S:Consulted to monitor and dose vancomycin started 03/01/20. O:NAT BEYER is a 64 year old M with Empiric . Height: 5 feet, 10 inches Weight: 62.5 kg [employer] Body Weight: 73.00 Adjusted Body Weight: 68.80 Dosing Weight: Actual Other Antibiotics: MERREM 1 GM Q8H LABS: Last BUN: 11 Last Creatinine: 0.7 Creatinine Clearance: 63 mL/min Last WBC: 9.7 Last Procalcitonin: - Tmax (past 24 hours): 99 Microbiology: 03/03 none I/O: 1201/1565 Drug Levels: Last Trough level: 9.4 on 03/03/20 at 0841 Last dose given 03/03/20 at 1000 Vancomycin Dosing: Loading Dose: 1500 mg x1 Dosing Weight: Actual Target Trough: 15-20 A: Based on: LOW TROUGH FOR INDICATION, P: 1. CHANGE DOSE TO Vancomycin 1000 mg IV q8h 2. Follow up Trough level on 03/04/20 at 1730 3. Pharmacy will continue to monitor, follow and adjust therapy as needed. SAGAR LEONE [facility], 03/03/20 1016
--- NOTE | 2020-03-03 11:17 | PDOC ---
PULMONARY PROGRESS NOTES DATE: 03/03/20 TIME: 11:14 Subjective NO SOA/ CHEST TUBE WITH AIR LEAK ON CANULA Vitals Vital Signs Date Time Temp Pulse Resp B/P (MAP) Pulse Ox O2 Delivery O2 Flow Rate FiO2 03/03/20 10:00 92 17 165/70 (101) 98 Nasal Cannula 2.0 03/03/20 08:00 98.2 98.2 General: Alert, No acute distress Lungs: Other (sc air right side) Abdomen: Soft Extremities: No Edema Skin: Warm Labs Laboratory Tests Test 03/01/20 20:52 03/02/20 11:00 03/03/20 08:41 White Blood Count 11.4 x10^3/uL (4.0-11.0) 10.9 x10^3/uL (4.0-11.0) 9.7 x10^3/uL (4.0-11.0) Red Blood Count 3.62 x10^6/uL (4.30-5.70) 3.38 x10^6/uL (4.30-5.70) 3.51 x10^6/uL (4.30-5.70) Hemoglobin 9.9 g/dL (13.0-17.5) 9.4 g/dL (13.0-17.5) 9.7 g/dL (13.0-17.5) Hematocrit 30.2 % (39.0-53.0) 28.3 % (39.0-53.0) 29.3 % (39.0-53.0) Mean Corpuscular Volume 83 fL (79-100) 84 fL (79-100) 83 fL (79-100) Mean Corpuscular Hemoglobin 27 pg (25-35) 28 pg (25-35) 28 pg (25-35) Mean Corpuscular Hemoglobin Concent 33 g/dL (31-37) 33 g/dL (31-37) 33 g/dL (31-37) Red Cell Distribution Width 17.4 % (11.5-14.5) 17.8 % (11.5-14.5) 17.3 % (11.5-14.5) Platelet Count 424 x10^3/uL (140-400) 381 x10^3/uL (140-400) 393 x10^3/uL (140-400) Neutrophils (%) (Auto) 85 % (31-73) 82 % (31-73) Lymphocytes (%) (Auto) 6 % (24-48) 7 % (24-48) Monocytes (%) (Auto) 9 % (0-9) 10 % (0-9) Eosinophils (%) (Auto) 0 % (0-3) 0 % (0-3) Basophils (%) (Auto) 1 % (0-3) 1 % (0-3) Neutrophils # (Auto) 9.7 x10^3/uL (1.8-7.7) 8.9 x10^3/uL (1.8-7.7) Lymphocytes # (Auto) 0.7 x10^3/uL (1.0-4.8) 0.8 x10^3/uL (1.0-4.8) Monocytes # (Auto) 1.0 x10^3/uL (0.0-1.1) 1.0 x10^3/uL (0.0-1.1) Eosinophils # (Auto) 0.0 x10^3/uL (0.0-0.7) 0.0 x10^3/uL (0.0-0.7) Basophils # (Auto) 0.1 x10^3/uL (0.0-0.2) 0.1 x10^3/uL (0.0-0.2) Sodium Level 136 mmol/L (136-145) 135 mmol/L (136-145) 134 mmol/L (136-145) Potassium Level 3.7 mmol/L (3.5-5.1) 3.5 mmol/L (3.5-5.1) 3.1 mmol/L (3.5-5.1) Chloride Level 101 mmol/L (98-107) 101 mmol/L (98-107) 100 mmol/L (98-107) Carbon Dioxide Level 30 mmol/L (21-32) 27 mmol/L (21-32) 26 mmol/L (21-32) Anion Gap 5 (6-14) 7 (6-14) 8 (6-14) Blood Urea Nitrogen 9 mg/dL (8-26) 12 mg/dL (8-26) 11 mg/dL (8-26) Creatinine 0.8 mg/dL (0.7-1.3) 0.9 mg/dL (0.7-1.3) 0.7 mg/dL (0.7-1.3) Estimated GFR (Cockcroft-Gault) 97.0 84.7 113.2 Glucose Level 132 mg/dL (70-99) 103 mg/dL (70-99) 88 mg/dL (70-99) Calcium Level 8.7 mg/dL (8.5-10.1) 8.4 mg/dL (8.5-10.1) 8.5 mg/dL (8.5-10.1) BUN/Creatinine Ratio 13 (6-20) 16 (6-20) Total Bilirubin 0.5 mg/dL (0.2-1.0) 0.4 mg/dL (0.2-1.0) Aspartate Amino Transf (AST/SGOT) 42 U/L (15-37) 27 U/L (15-37) Alanine Aminotransferase (ALT/SGPT) 28 U/L (16-63) 25 U/L (16-63) Alkaline Phosphatase 95 U/L (46-116) 88 U/L (46-116) Total Protein 6.1 g/dL (6.4-8.2) 6.2 g/dL (6.4-8.2) Albumin 2.7 g/dL (3.4-5.0) 2.7 g/dL (3.4-5.0) Albumin/Globulin Ratio 0.8 (1.0-1.7) 0.8 (1.0-1.7) Vancomycin Level Trough 9.4 mcg/mL (10.0-20.0) Vancomycin Last Dose Date 03/02/2020 Vancomycin Last Dose Time 2200 Laboratory Tests Test 03/03/20 08:41 White Blood Count 9.7 x10^3/uL (4.0-11.0) Red Blood Count 3.51 x10^6/uL (4.30-5.70) Hemoglobin 9.7 g/dL (13.0-17.5) Hematocrit 29.3 % (39.0-53.0) Mean Corpuscular Volume 83 fL (79-100) Mean Corpuscular Hemoglobin 28 pg (25-35) Mean Corpuscular Hemoglobin Concent 33 g/dL (31-37) Red Cell Distribution Width 17.3 % (11.5-14.5) Platelet Count 393 x10^3/uL (140-400) Sodium Level 134 mmol/L (136-145) Potassium Level 3.1 mmol/L (3.5-5.1) Chloride Level 100 mmol/L (98-107) Carbon Dioxide Level 26 mmol/L (21-32) Anion Gap 8 (6-14) Blood Urea Nitrogen 11 mg/dL (8-26) Creatinine 0.7 mg/dL (0.7-1.3) Estimated GFR (Cockcroft-Gault) 113.2 BUN/Creatinine Ratio 16 (6-20) Glucose Level 88 mg/dL (70-99) Calcium Level 8.5 mg/dL (8.5-10.1) Total Bilirubin 0.4 mg/dL (0.2-1.0) Aspartate Amino Transf (AST/SGOT) 27 U/L (15-37) Alanine Aminotransferase (ALT/SGPT) 25 U/L (16-63) Alkaline Phosphatase 88 U/L (46-116) Total Protein 6.2 g/dL (6.4-8.2) Albumin 2.7 g/dL (3.4-5.0) Albumin/Globulin Ratio 0.8 (1.0-1.7) Vancomycin Level Trough 9.4 mcg/mL (10.0-20.0) Vancomycin Last Dose Date 03/02/2020 Vancomycin Last Dose Time 2200 Medications Active Scripts Medications Dose Route/Sig Max Daily Dose Days Date Category Proair Hfa Inhaler (Albuterol Sulfate) 8.5 Gm Hfa.aer.ad 2 Puff IH PRN Q4-6HRS PRN 21 03/02/20 Reported Polyethylene Glycol 3350 2,500 Gm Powder 2,500 Gm MC PRN DAILY PRN 03/01/20 Reported Pantoprazole Sodium (Pantoprazole Sodium) 40 Mg Tablet.dr 40 Mg PO DAILYAC 03/01/20 Reported Sucralfate 1 Gm/10 Ml Oral.susp 10 Ml PO DAILY 03/01/20 Reported Senna Laxative (Sennosides) 8.6 Mg Tablet 2 Tab PO PRN TID PRN 30 03/01/20 Reported Docusate Sodium 50 Mg/5 Ml Liquid 50 Mg PO DAILY 03/01/20 Reported Kaopectate (Bismuth Subsalicylate) 262 Mg Tablet 262 Mg PO TID 03/01/20 Reported Peridex (Chlorhexidine Gluconate) 15 Ml Mouthwash 15 Ml PO BID 30 03/01/20 Reported Singulair Tablet (Montelukast Sodium) 10 Mg Tablet 10 Mg PO HS 03/01/20 Reported Hydroxyzine Hcl 25 Mg Tablet 1 Tab PO TID 03/01/20 Reported Zoloft (Sertraline Hcl) 100 Mg Tablet 1 Tab PO DAILY 03/01/20 Reported Clonazepam 1 Mg Tablet 1 Mg PO TID 03/01/20 Reported Acetaminophen 325 Mg Tablet 3 Tab PO PRN Q6-8HRS PRN 24 03/01/20 Reported Tramadol Hcl 50 Mg Tablet 50 Mg PO PRN BID PRN 03/01/20 Reported Amlodipine Besylate 10 Mg Tablet 10 Mg PO DAILY 03/01/20 Reported Amlodipine Besylate 10 Mg Tablet 10 Mg PO DAILY 03/01/20 Reported Ferrousul (Ferrous Sulfate) 325 Mg Tablet 1 Tab PO DAILY 30 03/01/20 Reported Flomax (Tamsulosin Hcl) 0.4 Mg Cap.er.24h 0.4 Mg PO DAILY 03/01/20 Reported Striverdi Respimat (Olodaterol HCl) 4 Gm Mist.inhal 4 Gm IH DAILY 03/01/20 Reported Nystatin 100,000 Unit/1 Ml Oral.susp 5 Ml PO QID 03/01/20 Reported Impression . 1. Acute respiratory failure, multifactorial in etiology including right pneumothorax, rib fractures ? lung contusion, chronic obstructive pulmonary disease. 2. Status post fall. 3. Abnormal chest x-ray. 4. Rib fractures. 5. Right pneumothorax, status post chest tube placement. 6. Chronic obstructive pulmonary disease. 7. History of cerebrovascular accident. 8. B Coronary artery disease. 9. Alcohol abuse per history. 10. Hypertension. 11. COVID-19 PUI. 12. Tobacco habituation. Plan . P 1. Titrate FiO2 to keep O2 saturation more than 92%. 2. Follow up COVID-19 testing neg 3. Continue chest tube to suction. Persistent air leak and sc air, tiny right apical Ptx 4. Continue antibiotic. 5. Pepcid for stress ulcer prophylaxis. 6. SCDs for DVT prophylaxis. 7. bronchodilator 8. The findings and recommendations were discussed with RN. VANNA GRESHAM MD Mar 03, 2020 11:17
--- NOTE | 2020-03-03 13:51 | RAD ---
EXAM: CHEST AP ONLY INDICATION: Reason: traumatic pneumothorax s/p chest tube placement for follow up / Spl. Instructions: / History: . TECHNIQUE: Single view COMPARISON: Chest x-ray of 03/01/2020 FINDINGS: Medially directed right chest tube remains present projecting across midline similar to prior. Heart is upper normal in size. Great vessels show aortic calcification and mild tortuosity. There is no hilar or mediastinal mass. Lungs show patchy opacities at the right lung base and mild prominence of the pulmonary interstitium. There is no pleural effusion. Residual small right apical pneumothorax noted measuring up to 1.4 cm, better seen than on the prior examination. There are no significant osseous abnormalities. Right chest subcutaneous emphysema remains present. IMPRESSION: Small right pneumothorax with no evidence of tension with stable positioning of a right chest tube and patchy opacities of the right lung base. Electronically signed by: James Smith MD (03/03/2020 1:49 PM) [id number]
--- NOTE | 2020-03-03 14:48 | NUR ---
SS following for discharge planning. SS reviewed pt chart and discussed with pt RN. Pt is from home and is currently requiring oxygen. Pt has chest tube. Pt on IV Vancomycin. COVID19 negative. SS will continue to follow for discharge planning.
--- NOTE | 2020-03-03 15:59 | PDOC ---
PROGRESS NOTES Date of Service DATE: 03/03/20 TIME: 15:54 Subjective Subjective Patient seen and evaluated Objective Objective Vital Signs Date Time Temp Pulse Resp B/P (MAP) Pulse Ox O2 Delivery O2 Flow Rate FiO2 03/03/20 15:00 100 17 169/82 (111) 98 Nasal Cannula 2.0 03/03/20 12:00 98.3 98.3 Intake and Output 03/03/20 07:00 Intake Total 1201.28 ml Output Total 1490 ml Balance -288.72 ml Intake Oral 350 ml IV Total 851.28 ml Output Urine Total 1245 ml Chest Tube Drainage Total 245 ml Physical Exam Abdomen: Normal bowel sounds Heart: Regular rate General: mild distress Lungs: Other (Decreased breath sounds) Assessment Assessment 1. Probable overdose. Reports of patient taking in excess of his home medications followed by agitation and a fall. Patient's rhythm is stable. He reasonably comfortable in bed. We will continue to monitor. 2. Respiratory failure with a right pneumothorax status post 2 chest tubes. Pulmonary status is improved. He is followed by the pulmonology service. We will check an echo now that COVID testing is negative. 3. History of psychiatric issues by report including posttraumatic stress disorder. Will attempt to obtain further old records. 4. Reported history of coronary disease and carotid disease. There is no reports of chest pain during his admission. We will continue to monitor and obtain further old records. 5. History of a CVA. 6. History of heavy alcohol use. 7. COVID testing pending. Comment Review of Relevant I have reviewed the following items mary (where applicable) has been applied. Labs Laboratory Tests Test 03/01/20 20:52 03/02/20 11:00 03/03/20 08:41 White Blood Count 11.4 x10^3/uL (4.0-11.0) 10.9 x10^3/uL (4.0-11.0) 9.7 x10^3/uL (4.0-11.0) Red Blood Count 3.62 x10^6/uL (4.30-5.70) 3.38 x10^6/uL (4.30-5.70) 3.51 x10^6/uL (4.30-5.70) Hemoglobin 9.9 g/dL (13.0-17.5) 9.4 g/dL (13.0-17.5) 9.7 g/dL (13.0-17.5) Hematocrit 30.2 % (39.0-53.0) 28.3 % (39.0-53.0) 29.3 % (39.0-53.0) Mean Corpuscular Volume 83 fL (79-100) 84 fL (79-100) 83 fL (79-100) Mean Corpuscular Hemoglobin 27 pg (25-35) 28 pg (25-35) 28 pg (25-35) Mean Corpuscular Hemoglobin Concent 33 g/dL (31-37) 33 g/dL (31-37) 33 g/dL (31-37) Red Cell Distribution Width 17.4 % (11.5-14.5) 17.8 % (11.5-14.5) 17.3 % (11.5-14.5) Platelet Count 424 x10^3/uL (140-400) 381 x10^3/uL (140-400) 393 x10^3/uL (140-400) Neutrophils (%) (Auto) 85 % (31-73) 82 % (31-73) Lymphocytes (%) (Auto) 6 % (24-48) 7 % (24-48) Monocytes (%) (Auto) 9 % (0-9) 10 % (0-9) Eosinophils (%) (Auto) 0 % (0-3) 0 % (0-3) Basophils (%) (Auto) 1 % (0-3) 1 % (0-3) Neutrophils # (Auto) 9.7 x10^3/uL (1.8-7.7) 8.9 x10^3/uL (1.8-7.7) Lymphocytes # (Auto) 0.7 x10^3/uL (1.0-4.8) 0.8 x10^3/uL (1.0-4.8) Monocytes # (Auto) 1.0 x10^3/uL (0.0-1.1) 1.0 x10^3/uL (0.0-1.1) Eosinophils # (Auto) 0.0 x10^3/uL (0.0-0.7) 0.0 x10^3/uL (0.0-0.7) Basophils # (Auto) 0.1 x10^3/uL (0.0-0.2) 0.1 x10^3/uL (0.0-0.2) Sodium Level 136 mmol/L (136-145) 135 mmol/L (136-145) 134 mmol/L (136-145) Potassium Level 3.7 mmol/L (3.5-5.1) 3.5 mmol/L (3.5-5.1) 3.1 mmol/L (3.5-5.1) Chloride Level 101 mmol/L (98-107) 101 mmol/L (98-107) 100 mmol/L (98-107) Carbon Dioxide Level 30 mmol/L (21-32) 27 mmol/L (21-32) 26 mmol/L (21-32) Anion Gap 5 (6-14) 7 (6-14) 8 (6-14) Blood Urea Nitrogen 9 mg/dL (8-26) 12 mg/dL (8-26) 11 mg/dL (8-26) Creatinine 0.8 mg/dL (0.7-1.3) 0.9 mg/dL (0.7-1.3) 0.7 mg/dL (0.7-1.3) Estimated GFR (Cockcroft-Gault) 97.0 84.7 113.2 Glucose Level 132 mg/dL (70-99) 103 mg/dL (70-99) 88 mg/dL (70-99) Calcium Level 8.7 mg/dL (8.5-10.1) 8.4 mg/dL (8.5-10.1) 8.5 mg/dL (8.5-10.1) BUN/Creatinine Ratio 13 (6-20) 16 (6-20) Total Bilirubin 0.5 mg/dL (0.2-1.0) 0.4 mg/dL (0.2-1.0) Aspartate Amino Transf (AST/SGOT) 42 U/L (15-37) 27 U/L (15-37) Alanine Aminotransferase (ALT/SGPT) 28 U/L (16-63) 25 U/L (16-63) Alkaline Phosphatase 95 U/L (46-116) 88 U/L (46-116) Total Protein 6.1 g/dL (6.4-8.2) 6.2 g/dL (6.4-8.2) Albumin 2.7 g/dL (3.4-5.0) 2.7 g/dL (3.4-5.0) Albumin/Globulin Ratio 0.8 (1.0-1.7) 0.8 (1.0-1.7) Vancomycin Level Trough 9.4 mcg/mL (10.0-20.0) Vancomycin Last Dose Date 03/02/2020 Vancomycin Last Dose Time 2200 Laboratory Tests Test 03/03/20 08:41 White Blood Count 9.7 x10^3/uL (4.0-11.0) Red Blood Count 3.51 x10^6/uL (4.30-5.70) Hemoglobin 9.7 g/dL (13.0-17.5) Hematocrit 29.3 % (39.0-53.0) Mean Corpuscular Volume 83 fL (79-100) Mean Corpuscular Hemoglobin 28 pg (25-35) Mean Corpuscular Hemoglobin Concent 33 g/dL (31-37) Red Cell Distribution Width 17.3 % (11.5-14.5) Platelet Count 393 x10^3/uL (140-400) Sodium Level 134 mmol/L (136-145) Potassium Level 3.1 mmol/L (3.5-5.1) Chloride Level 100 mmol/L (98-107) Carbon Dioxide Level 26 mmol/L (21-32) Anion Gap 8 (6-14) Blood Urea Nitrogen 11 mg/dL (8-26) Creatinine 0.7 mg/dL (0.7-1.3) Estimated GFR (Cockcroft-Gault) 113.2 BUN/Creatinine Ratio 16 (6-20) Glucose Level 88 mg/dL (70-99) Calcium Level 8.5 mg/dL (8.5-10.1) Total Bilirubin 0.4 mg/dL (0.2-1.0) Aspartate Amino Transf (AST/SGOT) 27 U/L (15-37) Alanine Aminotransferase (ALT/SGPT) 25 U/L (16-63) Alkaline Phosphatase 88 U/L (46-116) Total Protein 6.2 g/dL (6.4-8.2) Albumin 2.7 g/dL (3.4-5.0) Albumin/Globulin Ratio 0.8 (1.0-1.7) Vancomycin Level Trough 9.4 mcg/mL (10.0-20.0) Vancomycin Last Dose Date 03/02/2020 Vancomycin Last Dose Time 2200 Medications Current Medications Morphine Sulfate (Morphine Sulfate) 4 mg PRN Q4HRS PRN IV PAIN MILD TO MOD Last administered on 03/03/20 12:20; Start 03/01/20 at 20:45 Ondansetron HCl (Zofran) 4 mg PRN Q4HRS PRN IVP NAUSEA/VOMITING; Start 03/01/20 at 20:45 Meropenem 1 gm/ Sodium Chloride 100 ml @ 200 mls/hr Q8HRS IV Last administered on 03/03/20at 14:47; Start 03/01/20 at 22:00 Vancomycin HCl (Vanco Per Pharmacy) 1 each PRN DAILY PRN MC SEE COMMENTS Last administered on 03/03/20at 10:22; Start 03/01/20 at 21:30 Vancomycin HCl 1.5 gm/Sodium Chloride 500 ml @ 250 mls/hr 1X ONCE IV Last administered on 03/01/20at 22:39; Start 03/01/20 at 22:00; Stop 03/01/20 at 23:59; Status DC Hydromorphone HCl (Dilaudid) 2 mg PRN Q4HRS PRN IVP SEVERE PAIN 7-10 Last administered on 03/01/20at 23:33; Start 03/01/20 at 23:15 Haloperidol Lactate (Haldol Inj) 5 mg PRN Q6HRS PRN IVP AGITATION Last administered on 03/03/20at 14:53; Start 03/02/20 at 00:45 Dexmedetomidine HCl 400 mcg/ Sodium Chloride 100 ml @ 0 mls/hr CONT PRN IV Agitation Last administered on 03/02/20at 17:00; Start 03/02/20 at 00:45 Vancomycin HCl 1 gm/Sodium Chloride 250 ml @ 250 mls/hr Q12H IV Last administ ered on 03/03/20at 10:02; Start 03/02/20 at 10:00; Stop 03/03/20 at 12:00; Status DC Vancomycin HCl (Vancomycin Trough Level) 1 each 1X ONCE MC Last administered on 03/03/20at 09:30; Start 03/03/20 at 09:30; Stop 03/03/20 at 09:31; Status DC Albuterol Sulfate (Ventolin Neb Soln) 3 mg PRN Q4HRS PRN INH wheezing; Start 03/02/20 at 09:15; Stop 03/02/20 at 10:24; Status DC Amlodipine Besylate (Norvasc) 10 mg DAILY PO Last administered on 03/03/20at 08:14; Start 03/02/20 at 10:00 Docusate Sodium (Colace Solution) 50 mg DAILY PO Last administered on 03/03/20at 08:15; Start 03/02/20 at 10:00 Ferrous Sulfate (Feosol) 325 mg DAILY PO Last administered on 03/03/20at 08:13; Start 03/02/20 at 10:00 Hydroxyzine HCl (Atarax) 25 mg TID PO Last administered on 03/03/20at 14:52; Start 03/02/20 at 14:00 Montelukast Sodium (Singulair) 10 mg HS PO Last administered on 03/02/20at 20:39; Start 03/02/20 at 21:00 Pantoprazole Sodium (Protonix) 40 mg DAILYAC PO Last administered on 03/03/20at 08:14; Start 03/02/20 at 10:00 Sennosides (Senna) 17.2 mg PRN TID PRN PO CONSTIPATION 1ST CHOICE; Start 03/02/20 at 09:15 Sucralfate (Carafate) 1 gm DAILY PO Last administered on 03/03/20at 08:14; Start 03/03/20 at 09:00 Tamsulosin HCl (Flomax) 0.4 mg DAILY PO Last administered on 03/03/20at 08:14; Start 03/02/20 at 10:00 Clonazepam (KlonoPIN) 1 mg TID PO Last administered on 03/03/20at 14:52; Start 03/02/20 at 14:00 Non-Formulary Medication (Olodaterol HCl (Striverdi Respimat)) 4 gm DAILY IH ; Start 03/03/20 at 09:00; Status UNV Polyethylene Glycol (miraLAX PACKET) 17 gm PRN DAILY PRN PO CONSTIPATION 2ND CHOICE; Start 9/14/20 at 09:00 Sertraline HCl (Zoloft) 100 mg DAILY PO Last administered on 03/03/20at 08:13; Start 03/03/20 at 09:00 Enoxaparin Sodium (Lovenox 40mg Syringe) 40 mg Q24H SQ Last administered on 03/03/20at 08:13; Start 03/02/20 at 09:15 Albuterol Sulfate (Ventolin Hfa) 1 puff PRN Q4HRS PRN INH SHORTNESS OF BREATH Last administered on 03/03/20at 04:36; Start 03/02/20 at 10:30 Guaifenesin (Mucinex) 600 mg BID PO Last administered on 03/03/20at 08:13; Start 03/02/20 at 21:00 Vancomycin HCl 1 gm/Sodium Chloride 250 ml @ 250 mls/hr Q8H IV ; Start 03/03/20 at 18:00 Vancomycin HCl (Vancomycin Trough Level) 1 each 1X ONCE MC ; Start 03/04/20 at 17:30; Stop 03/04/20 at 17:31 Lactobacillus Rhamnosus (Culturelle) 1 cap BID PO ; Start 03/03/20 at 21:00 Active Scripts Active Reported Proair Hfa Inhaler (Albuterol Sulfate) 8.5 Gm Hfa.aer.ad 2 Puff IH PRN Q4-6HRS PRN 21 Days Polyethylene Glycol 3350 2,500 Gm Powder 2,500 Gm MC PRN DAILY PRN Pantoprazole Sodium (Pantoprazole Sodium) 40 Mg Tablet.dr 40 Mg PO DAILYAC Sucralfate 1 Gm/10 Ml Oral.susp 10 Ml PO DAILY Senna Laxative (Sennosides) 8.6 Mg Tablet 2 Tab PO PRN TID PRN 30 Days Docusate Sodium 50 Mg/5 Ml Liquid 50 Mg PO DAILY Kaopectate (Bismuth Subsalicylate) 262 Mg Tablet 262 Mg PO TID Peridex (Chlorhexidine Gluconate) 15 Ml Mouthwash 15 Ml PO BID 30 Days Singulair Tablet (Montelukast Sodium) 10 Mg Tablet 10 Mg PO HS Hydroxyzine Hcl 25 Mg Tablet 1 Tab PO TID Zoloft (Sertraline Hcl) 100 Mg Tablet 1 Tab PO DAILY Clonazepam 1 Mg Tablet 1 Mg PO TID Acetaminophen 325 Mg Tablet 3 Tab PO PRN Q6-8HRS PRN 24 Days Tramadol Hcl 50 Mg Tablet 50 Mg PO PRN BID PRN Amlodipine Besylate 10 Mg Tablet 10 Mg PO DAILY Amlodipine Besylate 10 Mg Tablet 10 Mg PO DAILY Ferrousul (Ferrous Sulfate) 325 Mg Tablet 1 Tab PO DAILY 30 Days Flomax (Tamsulosin Hcl) 0.4 Mg Cap.er.24h 0.4 Mg PO DAILY Striverdi Respimat (Olodaterol HCl) 4 Gm Mist.inhal 4 Gm IH DAILY Nystatin 100,000 Unit/1 Ml Oral.susp 5 Ml PO QID Vitals/I & O Vital Sign - Last 24 Hours 03/02/20 03/02/20 03/02/20 03/02/20 16:00 16:00 17:00 18:00 Temp 98.2 98.2 Pulse 83 87 91 Resp 22 B/P (MAP) 117/60 (79) 142/66 (91) 137/63 (87) Pulse Ox 98 97 98 O2 Delivery Nasal Cannula Nasal Cannula Nasal Cannula Nasal Cannula O2 Flow Rate 2.0 2.0 2.0 2.0 03/02/20 03/02/20 03/02/20 03/02/20 19:00 20:00 20:00 21:00 Temp 99.0 99.0 Pulse 88 94 94 Resp B/P (MAP) 144/93 (110) 141/65 (90) 140/69 (92) Pulse Ox 98 98 99 O2 Delivery Nasal Cannula Nasal Cannula Nasal Cannula Nasal Cannula O2 Flow Rate 2.0 2.0 2.0 2.0 03/02/20 03/02/20 03/02/20 03/03/20 22:00 23:00 23:41 00:01 Pulse 92 94 Resp B/P (MAP) 156/71 (99) 156/77 (103) Pulse Ox 99 97 97 O2 Delivery Nasal Cannula Nasal Cannula Nasal Cannula Nasal Cannula O2 Flow Rate 2.0 2.0 2.0 2.0 03/03/20 03/03/20 03/03/20 03/03/20 00:01 01:00 02:00 03:00 Temp 99.1 99.1 Pulse 92 95 90 88 Resp 20 B/P (MAP) 158/87 (110) 157/76 (103) 153/70 (97) 146/74 (98) Pulse Ox 97 99 99 99 O2 Delivery Nasal Cannula Nasal Cannula Nasal Cannula Nasal Cannula O2 Flow Rate 2.0 2.0 2.0 2.0 03/03/20 03/03/20 03/03/20 03/03/20 04:00 04:00 04:36 05:00 Temp 99.2 99.2 Pulse 86 89 Resp 19 21 25 B/P (MAP) 142/68 (92) 161/70 (100) Pulse Ox 98 97 O2 Delivery Nasal Cannula Nasal Cannula Nasal Cannula Nasal Cannula O2 Flow Rate 2.0 2.0 2.0 2.0 03/03/20 03/03/20 03/03/20 03/03/20 06:00 07:00 08:00 08:14 Temp 98.2 98.2 Pulse 80 81 94 85 Resp 17 16 15 B/P (MAP) 109/52 (71) 117/58 (77) 147/67 (93) 147/67 Pulse Ox 97 100 98 O2 Delivery Nasal Cannula Nasal Cannula Nasal Cannula O2 Flow Rate 2.0 2.0 2.0 03/03/20 03/03/20 03/03/20 03/03/20 08:15 08:15 08:45 09:00 Pulse 91 Resp 23 15 15 B/P (MAP) 158/79 (105) Pulse Ox 97 97 97 O2 Delivery Nasal Cannula Nasal Cannula Nasal Cannula Nasal Cannula O2 Flow Rate 2.0 2.0 2.0 2.0 03/03/20 03/03/20 03/03/20 03/03/20 10:00 11:00 12:00 12:00 Temp 98.3 98.3 Pulse 92 92 82 Resp 17 24 15 B/P (MAP) 165/70 (101) 164/76 (105) 150/75 (100) Pulse Ox 98 98 98 O2 Delivery Nasal Cannula Nasal Cannula Nasal Cannula Nasal Cannula O2 Flow Rate 2.0 2.0 2.0 2.0 03/03/20 03/03/20 03/03/20 03/03/20 12:20 13:00 14:00 15:00 Pulse 96 96 100 Resp 13 14 14 17 B/P (MAP) 156/74 (101) 184/83 (116) 169/82 (111) Pulse Ox 98 98 100 98 O2 Delivery Nasal Cannula Nasal Cannula Nasal Cannula Nasal Cannula O2 Flow Rate 2.0 2.0 2.0 2.0 Intake and Output 03/02/20 03/02/20 03/03/20 15:00 23:00 07:00 Intake Total 250 ml 445 ml 506.28 ml Output Total 505 ml 360 ml 625 ml Balance -255 ml 85 ml -118.72 ml Justifications for Admission Other Justification Nutrition Consultation Dietary Evaluation: Recommendations by RD: Dietary education by RD, Increase Calorie Intake, Protein supplementation Comments: REC cardiac diet per pmhx, will adjust diet order as needed REC Ensure prn when pt awake, can add to meal trays if needed Expected Outcomes/Goals: PO intake to meet >75% est needs Malnutrition Findings: Body Fat Depletion (Non Severe: Mild Depletion Weight Status: Appropriate JOYCELYN ZAMARRIPA MD Mar 03, 2020 15:59
[2020-03-03] MEDS: MONTELUKAST SODIUM 10 MG TABLET. PO SCH (21:28)
[2020-03-03] MEDS: LACTOBACILLUS RHAMNOSUS GG 1 CAPSULE. PO SCH (21:28)
[2020-03-04] VITALS (8 sets, daily range): BP systolic 134–188; BP diastolic 74–94
[2020-03-04] MEDS: MORPHINE SULFATE 4 MG/ML VIAL. IV PRN ×4 (00:22→21:26)
[2020-03-04] MEDS: VANCOMYCIN 1 GM in IV NORMAL SALINE 250ML 250 ML IV SCH ×2 (02:22→10:55)
--- NOTE | 2020-03-04 05:40 | RAD ---
EXAM: CHEST 1 VIEW History: Pneumothorax COMPARISON: 03/03/2020 TECHNIQUE: Single portable radiograph of the chest Findings/ impression: Mild cardiomegaly. Small right apical pneumothorax is unchanged. Right-sided chest tube is unchanged. Right lung base airspace opacities likely atelectasis or infiltrates. Moderate chest wall emphysema identified in the right chest wall. Multiple right rib fracture are again identified. Electronically signed by: Philip Dominique MD (03/04/2020 5:37 AM) [id number]
[2020-03-04] MEDS: MEROPENEM 1 GM in IV NORMAL SALINE 100ML 100 ML IV SCH ×3 (06:06→21:16)
[2020-03-04 06:29] LABS: CREATININE 0.6 mg/dL (0.7-1.3); GFR 135.2
[2020-03-04] MEDS: PANTOPRAZOLE 40 MG TABLET.DR. PO SCH (07:30)
[2020-03-04] MEDS: DOCUSATE 100 MG/10 ML SOLUTION. PO SCH (09:00)
[2020-03-04] MEDS: SUCRALFATE 1 GM/10 ML ORAL.SUSP. PO SCH (09:00)
[2020-03-04] MEDS: clonazePAM 0.5 MG TABLET PO SCH ×3 (09:00→21:00)
[2020-03-04] MEDS: hydrOXYzine 25 MG TABLET PO SCH ×3 (09:00→21:00)
[2020-03-04] MEDS: SERTRALINE 50 MG TABLET. PO SCH (09:00)
[2020-03-04] MEDS: amLODIPine BESYLATE 10 MG TABLET PO SCH (09:00)
[2020-03-04] MEDS: TAMSULOSIN 0.4 MG CAP.ER.24H. PO SCH (09:00)
[2020-03-04] MEDS: FERROUS SULFATE 325 MG TABLET. PO SCH (09:00)
[2020-03-04] MEDS: LACTOBACILLUS RHAMNOSUS GG 1 CAPSULE. PO SCH ×2 (09:00→21:00)
--- NOTE | 2020-03-04 09:55 | NUR ---
Spoke with DAYANARA Mejias and reports pt would benefit from PT/OT assessment. Please write PT/OT eval and treat orders if you agree. Addendum: 03/04/20 at 0956 by ANJALI MAGANA PT Amended: Links added.
--- NOTE | 2020-03-04 10:17 | PDOC ---
PULMONARY PROGRESS NOTES DATE: 03/04/20 TIME: 10:16 Subjective NO SOA/ CHEST TUBE WITH AIR LEAK ON CANULA Vitals Vital Signs Date Time Temp Pulse Resp B/P (MAP) Pulse Ox O2 Delivery O2 Flow Rate FiO2 03/04/20 06:06 94 Nasal Cannula 2.0 03/04/20 05:00 100 18 186/74 (111) 03/03/20 23:03 98.8 98.8 General: Alert, No acute distress Lungs: Other (sc air right side) Abdomen: Soft Extremities: No Edema Skin: Warm Labs Laboratory Tests Test 03/02/20 11:00 03/03/20 08:41 03/04/20 05:20 White Blood Count 10.9 x10^3/uL (4.0-11.0) 9.7 x10^3/uL (4.0-11.0) Red Blood Count 3.38 x10^6/uL (4.30-5.70) 3.51 x10^6/uL (4.30-5.70) Hemoglobin 9.4 g/dL (13.0-17.5) 9.7 g/dL (13.0-17.5) Hematocrit 28.3 % (39.0-53.0) 29.3 % (39.0-53.0) Mean Corpuscular Volume 84 fL (79-100) 83 fL (79-100) Mean Corpuscular Hemoglobin 28 pg (25-35) 28 pg (25-35) Mean Corpuscular Hemoglobin Concent 33 g/dL (31-37) 33 g/dL (31-37) Red Cell Distribution Width 17.8 % (11.5-14.5) 17.3 % (11.5-14.5) Platelet Count 381 x10^3/uL (140-400) 393 x10^3/uL (140-400) Neutrophils (%) (Auto) 82 % (31-73) Lymphocytes (%) (Auto) 7 % (24-48) Monocytes (%) (Auto) 10 % (0-9) Eosinophils (%) (Auto) 0 % (0-3) Basophils (%) (Auto) 1 % (0-3) Neutrophils # (Auto) 8.9 x10^3/uL (1.8-7.7) Lymphocytes # (Auto) 0.8 x10^3/uL (1.0-4.8) Monocytes # (Auto) 1.0 x10^3/uL (0.0-1.1) Eosinophils # (Auto) 0.0 x10^3/uL (0.0-0.7) Basophils # (Auto) 0.1 x10^3/uL (0.0-0.2) Sodium Level 135 mmol/L (136-145) 134 mmol/L (136-145) Potassium Level 3.5 mmol/L (3.5-5.1) 3.1 mmol/L (3.5-5.1) Chloride Level 101 mmol/L (98-107) 100 mmol/L (98-107) Carbon Dioxide Level 27 mmol/L (21-32) 26 mmol/L (21-32) Anion Gap 7 (6-14) 8 (6-14) Blood Urea Nitrogen 12 mg/dL (8-26) 11 mg/dL (8-26) Creatinine 0.9 mg/dL (0.7-1.3) 0.7 mg/dL (0.7-1.3) 0.6 mg/dL (0.7-1.3) Estimated GFR (Cockcroft-Gault) 84.7 113.2 135.2 BUN/Creatinine Ratio 13 (6-20) 16 (6-20) Glucose Level 103 mg/dL (70-99) 88 mg/dL (70-99) Calcium Level 8.4 mg/dL (8.5-10.1) 8.5 mg/dL (8.5-10.1) Total Bilirubin 0.5 mg/dL (0.2-1.0) 0.4 mg/dL (0.2-1.0) Aspartate Amino Transf (AST/SGOT) 42 U/L (15-37) 27 U/L (15-37) Alanine Aminotransferase (ALT/SGPT) 28 U/L (16-63) 25 U/L (16-63) Alkaline Phosphatase 95 U/L (46-116) 88 U/L (46-116) Total Protein 6.1 g/dL (6.4-8.2) 6.2 g/dL (6.4-8.2) Albumin 2.7 g/dL (3.4-5.0) 2.7 g/dL (3.4-5.0) Albumin/Globulin Ratio 0.8 (1.0-1.7) 0.8 (1.0-1.7) Vancomycin Level Trough 9.4 mcg/mL (10.0-20.0) Vancomycin Last Dose Date 03/02/2020 Vancomycin Last Dose Time 2200 Laboratory Tests Test 03/04/20 05:20 Creatinine 0.6 mg/dL (0.7-1.3) Estimated GFR (Cockcroft-Gault) 135.2 Medications Active Scripts Medications Dose Route/Sig Max Daily Dose Days Date Category Proair Hfa Inhaler (Albuterol Sulfate) 8.5 Gm Hfa.aer.ad 2 Puff IH PRN Q4-6HRS PRN 21 03/02/20 Reported Polyethylene Glycol 3350 2,500 Gm Powder 2,500 Gm MC PRN DAILY PRN 03/01/20 Reported Pantoprazole Sodium (Pantoprazole Sodium) 40 Mg Tablet.dr 40 Mg PO DAILYAC 03/01/20 Reported Sucralfate 1 Gm/10 Ml Oral.susp 10 Ml PO DAILY 03/01/20 Reported Senna Laxative (Sennosides) 8.6 Mg Tablet 2 Tab PO PRN TID PRN 30 03/01/20 Reported Docusate Sodium 50 Mg/5 Ml Liquid 50 Mg PO DAILY 03/01/20 Reported Kaopectate (Bismuth Subsalicylate) 262 Mg Tablet 262 Mg PO TID 03/01/20 Reported Peridex (Chlorhexidine Gluconate) 15 Ml Mouthwash 15 Ml PO BID 30 03/01/20 Reported Singulair Tablet (Montelukast Sodium) 10 Mg Tablet 10 Mg PO HS 03/01/20 Reported Hydroxyzine Hcl 25 Mg Tablet 1 Tab PO TID 03/01/20 Reported Zoloft (Sertraline Hcl) 100 Mg Tablet 1 Tab PO DAILY 03/01/20 Reported Clonazepam 1 Mg Tablet 1 Mg PO TID 03/01/20 Reported Acetaminophen 325 Mg Tablet 3 Tab PO PRN Q6-8HRS PRN 24 03/01/20 Reported Tramadol Hcl 50 Mg Tablet 50 Mg PO PRN BID PRN 03/01/20 Reported Amlodipine Besylate 10 Mg Tablet 10 Mg PO DAILY 9/12/20 Reported Amlodipine Besylate 10 Mg Tablet 10 Mg PO DAILY 03/01/20 Reported Ferrousul (Ferrous Sulfate) 325 Mg Tablet 1 Tab PO DAILY 30 03/01/20 Reported Flomax (Tamsulosin Hcl) 0.4 Mg Cap.er.24h 0.4 Mg PO DAILY 03/01/20 Reported Striverdi Respimat (Olodaterol HCl) 4 Gm Mist.inhal 4 Gm IH DAILY 03/01/20 Reported Nystatin 100,000 Unit/1 Ml Oral.susp 5 Ml PO QID 03/01/20 Reported Comments cxr 03/04 reviewed. small apical PTX, sc air Impression . 1. Acute respiratory failure, multifactorial in etiology including right pneumothorax, rib fractures ? lung contusion, chronic obstructive pulmonary disease. 2. Status post fall. 3. Abnormal chest x-ray. 4. Rib fractures. 5. Right pneumothorax, status post chest tube placement. 6. Chronic obstructive pulmonary disease. 7. History of cerebrovascular accident. 8. B Coronary artery disease. 9. Alcohol abuse per history. 10. Hypertension. 11. COVID-19 PUI. 12. Tobacco habituation. Plan . P 1. Titrate FiO2 to keep O2 saturation more than 92%. 2. Follow up COVID-19 testing neg 3. Continue chest tube to suction. Persistent air leak and sc air, tiny right apical Ptx 4. Continue antibiotic. 5. Pepcid for stress ulcer prophylaxis. 6. SCDs for DVT prophylaxis. 7. bronchodilator 8. The findings and recommendations were discussed with RN./VANNA Lopez MD Mar 04, 2020 10:17
[2020-03-04] MEDS: VANCOMYCIN PER PHARMACY MC PRN (10:43)
[2020-03-04] MEDS: ENOXAPARIN 40 MG/0.4 ML SYRINGE. SQ SCH (10:49)
--- NOTE | 2020-03-04 11:20 | PN ---
DATE: 03/04/2020 SUBJECTIVE: The patient is resting, slightly propped up in bed, in no apparent respiratory distress; however, he continued to be somewhat encephalopathic, lethargic. PHYSICAL EXAMINATION: GENERAL: When I examined him, he looked pale, but no jaundice, cyanosis or thyromegaly. No jugular venous distention. No lower limb edema. VITAL SIGNS: His heart rate was 100, blood pressure was 186/74, temperature was 98.8, respiratory rate was 18 and oxygen saturation was 94% on 2 liters of oxygen. HEAD, EYES, EARS, NOSE AND THROAT: Showed normocephalic, atraumatic. NECK: Supple. HEART: Showed normal first and second heart sounds. No gallop, rub or murmur. CHEST: Shows central trachea, equal bilateral expansion, air entry, vesicular sounds with extensive subcutaneous crepitus on the right side. ABDOMEN: Distended, soft, nontender. NEUROLOGIC: He was somewhat encephalopathic, although without any obvious lateralizing sign. His intake over the last 24 hours was 1200, output was 1565. LABORATORY DATA: As of yesterday, his white cell count was 9700, hemoglobin 9.7, hematocrit 29.3, MCV 83 and platelet count 393,000. His chemistry showed a serum sodium 134, potassium 3.1, chloride 100, bicarbonate 26, anion gap of 8, BUN of 11, creatinine was 0.7, estimated GFR was 113 mL per minute. His glucose was 88, calcium was 8.5. Total bilirubin, AST, ALT, alkaline phosphatase were normal. Total protein 6.2, albumin 2.7. ASSESSMENT: 1. Altered mental status, syncopal episode and fall, sustaining right-sided multiple rib fractures. 2. Traumatic pneumothorax, status post chest tube placement. 3. The patient has multiple other medical problems including: A. Hypertension. B. Gastroesophageal reflux disease. C. Coronary artery disease. D. Anemia. E. Stroke and right carotid endarterectomy. PLAN: I will repeat his CT scan of the head as if he continues to be doing poorly. He has also hypokalemia. I will change his IV fluid to normal saline with 40 mEq of potassium chloride and decide on further management. Repeat his labs again tomorrow. ENRIQUE BRAGG MD DR: CLARY/soraya JOB#: [id number] / [id number]
[2020-03-04] MEDS: PANTOPRAZOLE IV PUSH 40 MG VIAL. IVP SCH (12:06)
[2020-03-04] MEDS: hydrALAZINE 20 MG/ML VIAL. IVP PRN (12:07)
--- NOTE | 2020-03-04 12:33 | PDOC ---
CARDIO Progress Notes Date and Time Date of Service 03/04/2020 Time of Evaluation 0910 Vitals Vitals Vital Signs Date Time Temp Pulse Resp B/P (MAP) Pulse Ox O2 Delivery O2 Flow Rate FiO2 03/04/20 12:07 114 188/93 03/04/20 12:07 96 Nasal Cannula 2.0 03/04/20 11:00 98.4 24 98.4 Weight Weight [ ] Input and Output Intake and Output Intake and Output 03/04/20 07:00 Intake Total 1218.4 ml Output Total 1730 ml Balance -511.6 ml Intake Oral 500 ml IV Total 718.4 ml Output Urine Total 1600 ml Chest Tube Drainage Total 130 ml Laboratory Labs Laboratory Tests Test 03/04/20 05:20 Creatinine 0.6 mg/dL (0.7-1.3) Estimated GFR (Cockcroft-Gault) 135.2 Assessment Assessment ODILON Owen APRN Mar 04, 2020 12:33
--- NOTE | 2020-03-04 13:00 | RAD ---
CT of head without contrast 03/04/2020 INDICATION: Fall, head trauma. Encephalopathy. COMPARISON STUDY: CT head without contrast March 01, 2020 Technique: Multidetector CT imaging of the head was performed without contrast. Findings: Diffuse atrophic changes again noted. No acute intracranial hemorrhage is identified. No evidence of subacute territorial infarct is identified. No acute mass effect or midline shift is seen. No new abnormal extra-axial fluid collections are identified. Multiple left-sided hypodensities are seen within frontal white matter. Findings may represent sequela of prior infarcts. No acute mass effect or midline shift is seen. Ventricles and basilar cisterns are unremarkable. No acute osseous changes are seen. IMPRESSION: No evidence of acute intracranial abnormality or acute change from comparison exam CT DOSING PQRS STATEMENT: One or more of the following individualized dose reduction techniques were utilized for this examination: 1. Automated exposure control 2. Adjustment of the mA and/or kV according to patient size 3. Use of iterative reconstruction technique Electronically signed by: Dennys Arteaga MD (03/04/2020 12:57 PM) [id number]
[2020-03-04] MEDS: HALOPERIDOL LACTATE 5 MG/ML VIAL. IVP PRN (13:23)
--- NOTE | 2020-03-04 14:38 | NUR ---
SS following up with discharge planning. SS reviewed pt chart and discussed with pt RN. Pt is currently requiring oxygen. Pt has chest tube and on IV Meropenem. COVID19 negative. PT/OT ordered. SS will continue to follow for discharge planning.
[2020-03-04] MEDS: ENALAPRILAT 1.25 MG/ML VIAL. IVP SCH ×2 (16:15→20:36)
[2020-03-04] MEDS: POTASSIUM CL 40MEQ IN 0.9%NACL 1,000 ML IV SCH (16:28)
--- NOTE | 2020-03-04 16:37 | PDOC ---
CARDIO Progress Notes Date and Time Date of Service 03/04/2020 Time of Evaluation 0940 Subjective Subjective: No Chest Pain, No shortness of breath Vitals Vitals Vital Signs Date Time Temp Pulse Resp B/P (MAP) Pulse Ox O2 Delivery O2 Flow Rate FiO2 03/04/20 13:09 96 Nasal Cannula 2.0 03/04/20 12:07 114 188/93 03/04/20 11:00 98.4 24 98.4 Weight Weight [ ] Input and Output Intake and Output Intake and Output 03/04/20 06:59 Intake Total 1218.4 ml Output Total 1730 ml Balance -511.6 ml Intake Oral 500 ml IV Total 718.4 ml Output Urine Total 1600 ml Chest Tube Drainage Total 130 ml Laboratory Labs Laboratory Tests Test 03/04/20 05:20 Creatinine 0.6 mg/dL (0.7-1.3) Estimated GFR (Cockcroft-Gault) 135.2 Physical Exam Chest: Symmetric LUNGS: Other (diminished) Heart: RRR (SR/ST) Abdomen: Soft N/T Extremities: No Calf Tenderness Neurology: alert, confused Assessment Assessment 1. Acute respiratory failure with right side pneumothorax: pulmonary following. Covid negative, chest tube in place 2. Syncope with traumatic fall sustaining multiple rib fractures: so far no arrhythmias 3. Metabolic encephalopathy with possible delirium 4. HTN urgency 4. Hx of PTSD and alcoholism 5. HX of stroke and CEA 6. CAD: unclear details 7. Reactive sinus tachycardia Recommendations 1. Unclear details in regards to CAD, so far no reported chest pain nor arrhythmias. Continue secondary prevention when able to take PO 2. Unclear allergy to labetolol. Start on vasotec IV and NTG paste while NPO. TTE today 3. Supportive care Justicifation of Admission Dx: Justifications for Admission: Justification of Admission Dx: Yes ODILON KENT APRN Mar 04, 2020 16:37
[2020-03-04] MEDS: NITROGLYCERIN OINT 1 GM PACKET. TP SCH (16:45)
[2020-03-04] MEDS: MONTELUKAST SODIUM 10 MG TABLET. PO SCH (21:00)
[2020-03-05] VITALS (7 sets, daily range): BP systolic 122–162; BP diastolic 70–98
[2020-03-05] MEDS: HALOPERIDOL LACTATE 5 MG/ML VIAL. IVP PRN ×2 (00:20→23:25)
[2020-03-05] MEDS: ENALAPRILAT 1.25 MG/ML VIAL. IVP SCH ×5 (01:36→23:47)
[2020-03-05] MEDS: POTASSIUM CL 40MEQ IN 0.9%NACL 1,000 ML IV SCH ×3 (01:57→17:00)
--- NOTE | 2020-03-05 02:29 | NUR ---
nitrobid held d/t enalapril ivp given Q4 hrs, and bp holding in the 130's
[2020-03-05 04:27] LABS: HEMATOCRIT 29.4 % (39.0-53.0); HEMOGLOBIN 9.5 g/dL (13.0-17.5); RED BLOOD COUNT 3.53 x10^6/uL (4.30-5.70); RED CELL DISTRIBUTION WIDTH 17.1 % (11.5-14.5); WHITE BLOOD COUNT 8.9 x10^3/uL (4.0-11.0)
[2020-03-05 04:47] LABS: ALBUMIN 2.5 g/dL (3.4-5.0); ALBUMIN/GLOBULIN RATIO 0.7 (1.0-1.7); CALCIUM 8.4 mg/dL (8.5-10.1); CREATININE 0.5 mg/dL (0.7-1.3); GFR 166.9; MAGNESIUM 2.2 mg/dL (1.8-2.4); POTASSIUM 3.4 mmol/L (3.5-5.1); TOTAL BILIRUBIN 0.5 mg/dL (0.2-1.0); TOTAL PROTEIN 5.9 g/dL (6.4-8.2)
[2020-03-05] MEDS: MEROPENEM 1 GM in IV NORMAL SALINE 100ML 100 ML IV SCH ×3 (05:43→21:25)
[2020-03-05] MEDS: NITROGLYCERIN OINT 1 GM PACKET. TP SCH ×5 (06:00→23:47)
[2020-03-05] MEDS: PANTOPRAZOLE 40 MG TABLET.DR. PO SCH (07:30)
[2020-03-05] MEDS: hydrOXYzine 25 MG TABLET PO SCH ×3 (09:00→21:00)
[2020-03-05] MEDS: FERROUS SULFATE 325 MG TABLET. PO SCH (09:00)
[2020-03-05] MEDS: SUCRALFATE 1 GM/10 ML ORAL.SUSP. PO SCH (09:00)
[2020-03-05] MEDS: TAMSULOSIN 0.4 MG CAP.ER.24H. PO SCH (09:00)
[2020-03-05] MEDS: amLODIPine BESYLATE 10 MG TABLET PO SCH (09:00)
[2020-03-05] MEDS: LACTOBACILLUS RHAMNOSUS GG 1 CAPSULE. PO SCH ×2 (09:00→21:00)
[2020-03-05] MEDS: clonazePAM 0.5 MG TABLET PO SCH ×3 (09:00→21:00)
[2020-03-05] MEDS: DOCUSATE 100 MG/10 ML SOLUTION. PO SCH (09:00)
[2020-03-05] MEDS: SERTRALINE 50 MG TABLET. PO SCH (09:00)
--- NOTE | 2020-03-05 10:11 | NUR ---
SS following up with discharge planning. SS reviewed pt chart and discussed with pt RN. Pt us currently requiring oxygen. Pt has chest tube. PT/OT ordered. Per RN, pt confused. ST following. Pt on IV Meropenem. COVID19 negative. SS will continue to follow for discharge planning.
--- NOTE | 2020-03-05 10:39 | NUR ---
SS following up with discharge planning. SS discussed with Dr. Nguyen. SS phoned and faxed referral to [facility], ; fax [phone]. SS will continue to follow for discharge planning.
--- NOTE | 2020-03-05 10:39 | CARD ---
MR#: [id number] Date of Study: 03/04/2020 Ordering Physician: JOYCELYN ZAMARRIPA, Referring Physician: JOYCELYN ZAMARRIPA, Tech: Sherice Cardoso АНДРЕЙ APPROVED REPORT EXAM: Two-dimensional and M-mode echocardiogram with Doppler and color Doppler. Other Information Quality : Technically Limited Technically limited study due to body habitus and smoking. INDICATION Dyspnea Hypertension/HCVD Cardiac Disease: CAD RISK FACTORS Hypertension Smoking 2D DIMENSIONS RVDd2.7 (2.9-3.5cm)Left Atrium(2D)3.6 (1.6-4.0cm) IVSd0.9 (0.7-1.1cm)Aortic Root(2D)3.1 (2.0-3.7cm) LVDd4.6 (3.9-5.9cm)LVOT Diameter2.1 (1.8-2.4cm) PWd1.1 (0.7-1.1cm)LVDs3.6 (2.5-4.0cm) FS (%) 30.0 %SV40.6 ml LVEF(%)60.0 (>50%) Aortic Valve AoV Peak Carson.165.2cm/sAoV VTI22.0cm AO Peak GR.10.9mmHgLVOT VTI 21.40cm AO Mean GR.6mmHg Tricuspid Valve TR P. [id number]/sRAP [id number] TR Peak Gr.[id number] LEFT VENTRICLE The left ventricle is normal size. There is normal left ventricular wall thickness. The left ventricu lar systolic function is normal. The Ejection Fraction is 60-65%. There is normal LV segmental wall m otion. Transmitral Doppler flow pattern is Grade I-abnormal relaxation pattern. RIGHT VENTRICLE The right ventricle is normal size. The right ventricular systolic function is normal. ATRIA The left atrium size is normal. The right atrium size is normal. The interatrial septum is intact wit h no evidence for an atrial septal defect or patent foramen ovale as noted on 2-D or Doppler imaging. AORTIC VALVE The aortic valve is calcified but opens well. Doppler and Color Flow revealed no significant aortic r egurgitation. There is no significant aortic valvular stenosis. MITRAL VALVE The mitral valve is calcified but opens well. There is no evidence of mitral valve prolapse. There is no mitral valve stenosis. Doppler and Color Flow revealed no mitral valve regurgitation noted. TRICUSPID VALVE The tricuspid valve is normal in structure and function. Doppler and Color Flow revealed trace to mil d tricuspid regurgitation. The PA pressure was estimated at 23 mmHg. There is no tricuspid valve sten osis. PULMONIC VALVE The pulmonic valve is not well visualized. GREAT VESSELS The aortic root is normal in size. The IVC is normal in size and collapses >50% with inspiration. PERICARDIAL EFFUSION There is no evidence of significant pericardial effusion. Critical Notification Critical Value: No <Conclusion> The left ventricular systolic function is normal. The Ejection Fraction is 60-65%. There is normal LV segmental wall motion. Trace to mild tricuspid regurgitation. The PA pressure was estimated at 23 mmHg. There is no evidence of significant pericardial effusion. Signed by : Alfred Alegria, Electronically Approved : 03/05/2020 10:38:45
--- NOTE | 2020-03-05 11:26 | PDOC ---
PULMONARY PROGRESS NOTES DATE: 03/05/20 TIME: 11:24 Subjective NO SOA/ CHEST TUBE WITH AIR LEAK ON CANULA Vitals Vital Signs Date Time Temp Pulse Resp B/P (MAP) Pulse Ox O2 Delivery O2 Flow Rate FiO2 03/05/20 09:00 113 144/83 03/05/20 07:00 97.6 24 92 Nasal Cannula 3.0 97.6 General: Alert, No acute distress Lungs: Other (sc air right side) Abdomen: Soft Extremities: No Edema Skin: Warm Labs Laboratory Tests Test 03/04/20 05:20 03/05/20 03:50 Creatinine 0.6 mg/dL (0.7-1.3) 0.5 mg/dL (0.7-1.3) Estimated GFR (Cockcroft-Gault) 135.2 166.9 White Blood Count 8.9 x10^3/uL (4.0-11.0) Red Blood Count 3.53 x10^6/uL (4.30-5.70) Hemoglobin 9.5 g/dL (13.0-17.5) Hematocrit 29.4 % (39.0-53.0) Mean Corpuscular Volume 83 fL (79-100) Mean Corpuscular Hemoglobin 27 pg (25-35) Mean Corpuscular Hemoglobin Concent 32 g/dL (31-37) Red Cell Distribution Width 17.1 % (11.5-14.5) Platelet Count 471 x10^3/uL (140-400) Sodium Level 141 mmol/L (136-145) Potassium Level 3.4 mmol/L (3.5-5.1) Chloride Level 106 mmol/L (98-107) Carbon Dioxide Level 23 mmol/L (21-32) Anion Gap 12 (6-14) Blood Urea Nitrogen 9 mg/dL (8-26) BUN/Creatinine Ratio 18 (6-20) Glucose Level 101 mg/dL (70-99) Calcium Level 8.4 mg/dL (8.5-10.1) Magnesium Level 2.2 mg/dL (1.8-2.4) Total Bilirubin 0.5 mg/dL (0.2-1.0) Aspartate Amino Transf (AST/SGOT) 24 U/L (15-37) Alanine Aminotransferase (ALT/SGPT) 23 U/L (16-63) Alkaline Phosphatase 86 U/L (46-116) Total Protein 5.9 g/dL (6.4-8.2) Albumin 2.5 g/dL (3.4-5.0) Albumin/Globulin Ratio 0.7 (1.0-1.7) Laboratory Tests Test 03/05/20 03:50 White Blood Count 8.9 x10^3/uL (4.0-11.0) Red Blood Count 3.53 x10^6/uL (4.30-5.70) Hemoglobin 9.5 g/dL (13.0-17.5) Hematocrit 29.4 % (39.0-53.0) Mean Corpuscular Volume 83 fL (79-100) Mean Corpuscular Hemoglobin 27 pg (25-35) Mean Corpuscular Hemoglobin Concent 32 g/dL (31-37) Red Cell Distribution Width 17.1 % (11.5-14.5) Platelet Count 471 x10^3/uL (140-400) Sodium Level 141 mmol/L (136-145) Potassium Level 3.4 mmol/L (3.5-5.1) Chloride Level 106 mmol/L (98-107) Carbon Dioxide Level 23 mmol/L (21-32) Anion Gap 12 (6-14) Blood Urea Nitrogen 9 mg/dL (8-26) Creatinine 0.5 mg/dL (0.7-1.3) Estimated GFR (Cockcroft-Gault) 166.9 BUN/Creatinine Ratio 18 (6-20) Glucose Level 101 mg/dL (70-99) Calcium Level 8.4 mg/dL (8.5-10.1) Magnesium Level 2.2 mg/dL (1.8-2.4) Total Bilirubin 0.5 mg/dL (0.2-1.0) Aspartate Amino Transf (AST/SGOT) 24 U/L (15-37) Alanine Aminotransferase (ALT/SGPT) 23 U/L (16-63) Alkaline Phosphatase 86 U/L (46-116) Total Protein 5.9 g/dL (6.4-8.2) Albumin 2.5 g/dL (3.4-5.0) Albumin/Globulin Ratio 0.7 (1.0-1.7) Medications Active Scripts Medications Dose Route/Sig Max Daily Dose Days Date Category Proair Hfa Inhaler (Albuterol Sulfate) 8.5 Gm Hfa.aer.ad 2 Puff IH PRN Q4-6HRS PRN 21 03/02/20 Reported Polyethylene Glycol 3350 2,500 Gm Powder 2,500 Gm MC PRN DAILY PRN 03/01/20 Reported Pantoprazole Sodium (Pantoprazole Sodium) 40 Mg Tablet.dr 40 Mg PO DAILYAC 03/01/20 Reported Sucralfate 1 Gm/10 Ml Oral.susp 10 Ml PO DAILY 03/01/20 Reported Senna Laxative (Sennosides) 8.6 Mg Tablet 2 Tab PO PRN TID PRN 30 03/01/20 Reported Docusate Sodium 50 Mg/5 Ml Liquid 50 Mg PO DAILY 03/01/20 Reported Kaopectate (Bismuth Subsalicylate) 262 Mg Tablet 262 Mg PO TID 03/01/20 Reported Peridex (Chlorhexidine Gluconate) 15 Ml Mouthwash 15 Ml PO BID 30 03/01/20 Reported Singulair Tablet (Montelukast Sodium) 10 Mg Tablet 10 Mg PO HS 03/01/20 Reported Hydroxyzine Hcl 25 Mg Tablet 1 Tab PO TID 03/01/20 Reported Zoloft (Sertraline Hcl) 100 Mg Tablet 1 Tab PO DAILY 03/01/20 Reported Clonazepam 1 Mg Tablet 1 Mg PO TID 03/01/20 Reported Acetaminophen 325 Mg Tablet 3 Tab PO PRN Q6-8HRS PRN 24 03/01/20 Reported Tramadol Hcl 50 Mg Tablet 50 Mg PO PRN BID PRN 03/01/20 Reported Amlodipine Besylate 10 Mg Tablet 10 Mg PO DAILY 03/01/20 Reported Amlodipine Besylate 10 Mg Tablet 10 Mg PO DAILY 03/01/20 Reported Ferrousul (Ferrous Sulfate) 325 Mg Tablet 1 Tab PO DAILY 30 03/01/20 Reported Flomax (Tamsulosin Hcl) 0.4 Mg Cap.er.24h 0.4 Mg PO DAILY 03/01/20 Reported Striverdi Respimat (Olodaterol HCl) 4 Gm Mist.inhal 4 Gm IH DAILY 03/01/20 Reported Nystatin 100,000 Unit/1 Ml Oral.susp 5 Ml PO QID 03/01/20 Reported Comments cxr 03/04 reviewed. small apical PTX, sc air Impression . 1. Acute respiratory failure, multifactorial in etiology including right pneumothorax, rib fractures ? lung contusion, chronic obstructive pulmonary disease. 2. Status post fall. 3. Abnormal chest x-ray. 4. Rib fractures. 5. Right pneumothorax, status post chest tube placement.,persistent air leak 6. Chronic obstructive pulmonary disease. 7. History of cerebrovascular accident. 8. B Coronary artery disease. 9. Alcohol abuse per history. 10. Hypertension. 11. COVID-19 PUI. 12. Tobacco habituation. Plan . P 1. Titrate FiO2 to keep O2 saturation more than 92%. 2. Follow up COVID-19 testing neg 3. Continue chest tube to suction. Persistent air leak and sc air, tiny right apical Ptx 4. Continue antibiotic. 5. Pepcid for stress ulcer prophylaxis. 6. SCDs for DVT prophylaxis. 7. bronchodilator 8. The findings and recommendations were discussed with RN./Dr Mendoza May need endobronchial valve if PTX persist by next week VANNA GRESHAM MD Mar 05, 2020 11:26
--- NOTE | 2020-03-05 12:02 | PDOC ---
CARDIO Progress Notes Date and Time Date of Service 03/05/20 Time of Evaluation 1140 Subjective Subjective: No Chest Pain, No Palpitations, Other (SOA) Vitals Vitals Vital Signs Date Time Temp Pulse Resp B/P (MAP) Pulse Ox O2 Delivery O2 Flow Rate FiO2 03/05/20 11:00 98.2 62 18 134/77 (96) 95 Nasal Cannula 3.0 98.2 Weight Weight [ ] Input and Output Intake and Output Intake and Output 03/05/20 07:00 Intake Total 1150 ml Output Total 1645 ml Balance -495 ml IV Total 1150 ml Output Urine Total 825 ml Chest Tube Drainage Total 820 ml Laboratory Labs Laboratory Tests Test 03/05/20 03:50 White Blood Count 8.9 x10^3/uL (4.0-11.0) Red Blood Count 3.53 x10^6/uL (4.30-5.70) Hemoglobin 9.5 g/dL (13.0-17.5) Hematocrit 29.4 % (39.0-53.0) Mean Corpuscular Volume 83 fL (79-100) Mean Corpuscular Hemoglobin 27 pg (25-35) Mean Corpuscular Hemoglobin Concent 32 g/dL (31-37) Red Cell Distribution Width 17.1 % (11.5-14.5) Platelet Count 471 x10^3/uL (140-400) Sodium Level 141 mmol/L (136-145) Potassium Level 3.4 mmol/L (3.5-5.1) Chloride Level 106 mmol/L (98-107) Carbon Dioxide Level 23 mmol/L (21-32) Anion Gap 12 (6-14) Blood Urea Nitrogen 9 mg/dL (8-26) Creatinine 0.5 mg/dL (0.7-1.3) Estimated GFR (Cockcroft-Gault) 166.9 BUN/Creatinine Ratio 18 (6-20) Glucose Level 101 mg/dL (70-99) Calcium Level 8.4 mg/dL (8.5-10.1) Magnesium Level 2.2 mg/dL (1.8-2.4) Total Bilirubin 0.5 mg/dL (0.2-1.0) Aspartate Amino Transf (AST/SGOT) 24 U/L (15-37) Alanine Aminotransferase (ALT/SGPT) 23 U/L (16-63) Alkaline Phosphatase 86 U/L (46-116) Total Protein 5.9 g/dL (6.4-8.2) Albumin 2.5 g/dL (3.4-5.0) Albumin/Globulin Ratio 0.7 (1.0-1.7) Physical Exam HEENT: Neck Supple W Full Motion Chest: Symmetric LUNGS: Other (right CT) Heart: RRR (SR/ST) Abdomen: Soft N/T Extremities: No Edema, No Calf Tenderness Neurology: alert, confused Assessment Assessment 1. Acute respiratory failure with right side pneumothorax: Covid negative, chest tube in place; with air leak. Continue as per pulmonary 2. Syncope with traumatic fall sustaining multiple rib fractures: so far no arrhythmias 3. Metabolic encephalopathy with possible delirium 4. HTN urgency; better controlled. Continue Enalapril IV and hydralazine PRN while NPO 4. Hx of PTSD and alcoholism 5. HX of stroke and CEA 6. CAD: details unclear. CP free. Echo with preserved LV systolic function. Check lipids panel. 7. Reactive sinus tachycardia; improved. Will check TSH Justicifation of Admission Dx: Justifications for Admission: Justification of Admission Dx: Yes SHAMIKA DORAN APRN Mar 05, 2020 12:02
[2020-03-05] MEDS: PANTOPRAZOLE IV PUSH 40 MG VIAL. IVP SCH (13:03)
[2020-03-05] MEDS: ENOXAPARIN 40 MG/0.4 ML SYRINGE. SQ SCH (13:08)
--- NOTE | 2020-03-05 17:23 | RAD ---
EXAMINATION: PORTABLE CHEST 1V CLINICAL HISTORY: Reason: Pneumothorax EXAM DATE/TIME: 03/05/2020 9:00 AM COMPARISON: 03/04/2020 FINDINGS/ IMPRESSION: Small right apical pneumothorax appears unchanged with right-sided chest tube in similar position. Improved aeration of the right lower lung zone with mild residual curvilinear opacities that may represent subsegmental atelectasis. Remainder of the study otherwise unchanged with redemonstration of prominent subcutaneous emphysema along the right hemithorax and multiple right rib fractures. Electronically signed by: Ross Cole DO (03/05/2020 5:20 PM) [id number]
--- NOTE | 2020-03-05 19:19 | PN ---
DATE: 03/05/2020 SUBJECTIVE: The patient is resting, slightly propped up in bed, in his recliner, continued to be very lethargic, mumbling his words and difficult to understand. He apparently disconnected his chest tube; however, when I examined him, he denied any chest pain or shortness of breath. PHYSICAL EXAMINATION: GENERAL: When I examined him, he looked pale, but not jaundiced, cyanosis or thyromegaly. No jugular venous distention. No limb edema. VITAL SIGNS: His heart rate was 62, blood pressure was 134/77, temperature was 98.2, respiratory rate was 18 and oxygen saturation was 95% on 3 liters of oxygen. HEAD, EYES, EARS, NOSE AND THROAT: Normocephalic, atraumatic. NECK: Supple. HEART: Showed normal first and second heart sounds with no gallop, rub or murmur. CHEST: Clear to auscultation. No crepitation or rhonchi. ABDOMEN: Distended, soft, nontender. NEUROLOGIC: He was lethargic, but arousable. All his cranial nerves are grossly intact. He moves extremities spontaneously. His intake over the last 24 hours was 1200, output was 1700. LABORATORY DATA: As of this morning, his white cell count is 8900, hemoglobin 9.5, hematocrit 29, MCV 83, and platelet count of 171,000. His chemistry showed a serum sodium 141, potassium 3.4, chloride 106, bicarbonate 23, anion gap of 12, BUN 9, creatinine 0.5, estimated GFR was 166 mL per minute. His glucose was 101, calcium was 8.4, magnesium 2.2. Total bilirubin, AST, ALT, alkaline phosphatase were normal. Total protein was 5.9, albumin was 2.5. He has had a CT scan of the head yesterday, which showed no evidence of acute intracranial abnormality or acute change from comparison exam. He apparently has hypodensities. Multiple left-sided hypodensities are seen within the frontal white matter, finding represents sequelae of prior infarct, no acute mass effect or midline shift is seen. Ventricles and basilar cisterns are unremarkable. No acute osseous changes are seen. IMPRESSION: In summary, 1. Altered mental status with syncopal episode and fall, sustaining right-sided multiple rib fractures. 2. Traumatic pneumothorax, status post chest tube placement. 3. Acute hypoxic respiratory failure. 4. The patient has multiple other medical problems including: A. Hypertension. B. Gastroesophageal reflux disease. C. Coronary artery disease. D. Anemia. E. Stroke and right carotid endarterectomy. PLAN: Obviously to continue with chest tube management. Continue with oxygen supplementation and titrate as needed. Continue with pain management. Apparently, the patient has persistent air leak and subcutaneous air with tiny right apical pneumothorax. The plan is to also continue with IV fluid as his potassium is improving, but still on the lower side. Continue with meropenem. ENRIQUE BRAGG MD DR: CLARY/soraya JOB#: [id number] / [id number]
[2020-03-05] MEDS: MORPHINE SULFATE 4 MG/ML VIAL. IV PRN (19:58)
--- NOTE | 2020-03-05 20:32 | RAD ---
EXAM: CHEST ONE VIEW. HISTORY: Chest tube placement, subcutaneous gas. COMPARISON: 03/05/2020 1131. FINDINGS: A frontal view of the chest is obtained. A right chest tube remains in place. It courses beyond the midline inferiorly. Subcutaneous gas throughout the right chest wall appears stable to mildly increased. There is no appreciable pneumothorax. There are surgical clips at the hiatus. Right basilar airspace opacities have increased. There is a small right pleural effusion. There is no appreciable pneumothorax. The heart is not enlarged. There are atherosclerotic calcifications of the aorta. Chronic left rib fractures are noted. IMPRESSION: 1. Increased right basilar infiltrate or atelectasis. 2. The right chest tube crosses the midline. Correlate for desired position. Electronically signed by: Francine Aguilar MD (03/05/2020 8:29 PM) [facility]
[2020-03-05] MEDS: MONTELUKAST SODIUM 10 MG TABLET. PO SCH (21:00)
[2020-03-06] MEDS: MORPHINE SULFATE 4 MG/ML VIAL. IV PRN ×2 (01:18→09:01)
[2020-03-06] MEDS: hydrALAZINE 20 MG/ML VIAL. IVP PRN ×2 (02:32→14:38)
[2020-03-06 02:45] VITALS: BP 170/89
[2020-03-06] MEDS: POTASSIUM CL 40MEQ IN 0.9%NACL 1,000 ML IV SCH (03:42)
[2020-03-06] MEDS: MEROPENEM 1 GM in IV NORMAL SALINE 100ML 100 ML IV SCH ×3 (05:51→21:07)
[2020-03-06] MEDS: HALOPERIDOL LACTATE 5 MG/ML VIAL. IVP PRN ×2 (05:51→17:21)
[2020-03-06] MEDS: ENALAPRILAT 1.25 MG/ML VIAL. IVP SCH ×4 (05:51→23:20)
[2020-03-06] MEDS: NITROGLYCERIN OINT 1 GM PACKET. TP SCH ×2 (05:52→12:53)
[2020-03-06 07:17] VITALS: BP 151/77
[2020-03-06 07:30] LABS: CHOLESTEROL/HDL RATIO 3.9
[2020-03-06] MEDS: TAMSULOSIN 0.4 MG CAP.ER.24H. PO SCH (09:00)
[2020-03-06] MEDS: amLODIPine BESYLATE 10 MG TABLET PO SCH (09:00)
[2020-03-06] MEDS: SUCRALFATE 1 GM/10 ML ORAL.SUSP. PO SCH (09:00)
[2020-03-06] MEDS: DOCUSATE 100 MG/10 ML SOLUTION. PO SCH (09:00)
[2020-03-06] MEDS: LACTOBACILLUS RHAMNOSUS GG 1 CAPSULE. PO SCH ×2 (09:00→20:30)
[2020-03-06] MEDS: FERROUS SULFATE 325 MG TABLET. PO SCH (09:00)
[2020-03-06] MEDS: SERTRALINE 50 MG TABLET. PO SCH (09:00)
[2020-03-06] MEDS: clonazePAM 0.5 MG TABLET PO SCH ×3 (09:00→20:30)
[2020-03-06] MEDS: PANTOPRAZOLE IV PUSH 40 MG VIAL. IVP SCH (09:00)
[2020-03-06] MEDS: hydrOXYzine 25 MG TABLET PO SCH ×3 (09:00→20:30)
[2020-03-06] MEDS: ENOXAPARIN 40 MG/0.4 ML SYRINGE. SQ SCH (09:02)
[2020-03-06 10:39] VITALS: BP 166/80
--- NOTE | 2020-03-06 11:06 | NUR ---
SS following up with discharge planning. SS reviewed pt chart and discussed with pt RN. Pt is currently requiring oxygen. Chest tube remains. Pt on IV Meropenem. COVID19 negative. Pt accepted at [facility], ; fax [phone]. SS will continue to follow for discharge planning.
--- NOTE | 2020-03-06 11:24 | PDOC ---
PULMONARY PROGRESS NOTES DATE: 03/06/20 TIME: 11:19 Subjective Pt had increased sc air last night CXR no increase PTX ON CANULA Vitals Vital Signs Date Time Temp Pulse Resp B/P (MAP) Pulse Ox O2 Delivery O2 Flow Rate FiO2 03/06/20 10:39 98.0 105 22 166/80 (108) 96 Nasal Cannula 2.0 98.0 General: Alert, No acute distress Lungs: Other (sc air right side, front and back) Abdomen: Soft Extremities: No Edema Skin: Warm Labs Laboratory Tests Test 03/05/20 03:50 03/06/20 06:17 White Blood Count 8.9 x10^3/uL (4.0-11.0) Red Blood Count 3.53 x10^6/uL (4.30-5.70) Hemoglobin 9.5 g/dL (13.0-17.5) Hematocrit 29.4 % (39.0-53.0) Mean Corpuscular Volume 83 fL (79-100) Mean Corpuscular Hemoglobin 27 pg (25-35) Mean Corpuscular Hemoglobin Concent 32 g/dL (31-37) Red Cell Distribution Width 17.1 % (11.5-14.5) Platelet Count 471 x10^3/uL (140-400) Sodium Level 141 mmol/L (136-145) Potassium Level 3.4 mmol/L (3.5-5.1) Chloride Level 106 mmol/L (98-107) Carbon Dioxide Level 23 mmol/L (21-32) Anion Gap 12 (6-14) Blood Urea Nitrogen 9 mg/dL (8-26) Creatinine 0.5 mg/dL (0.7-1.3) Estimated GFR (Cockcroft-Gault) 166.9 BUN/Creatinine Ratio 18 (6-20) Glucose Level 101 mg/dL (70-99) Calcium Level 8.4 mg/dL (8.5-10.1) Magnesium Level 2.2 mg/dL (1.8-2.4) Total Bilirubin 0.5 mg/dL (0.2-1.0) Aspartate Amino Transf (AST/SGOT) 24 U/L (15-37) Alanine Aminotransferase (ALT/SGPT) 23 U/L (16-63) Alkaline Phosphatase 86 U/L (46-116) Total Protein 5.9 g/dL (6.4-8.2) Albumin 2.5 g/dL (3.4-5.0) Albumin/Globulin Ratio 0.7 (1.0-1.7) Triglycerides Level 94 mg/dL (0-150) Cholesterol Level 137 mg/dL (0-200) LDL Cholesterol, Calculated 83 mg/dL (0-100) VLDL Cholesterol, Calculated 19 mg/dL (0-40) Non-HDL Cholesterol Calculated 102 mg/dL (0-129) HDL Cholesterol 35 mg/dL (40-60) Cholesterol/HDL Ratio 3.9 Thyroid Stimulating Hormone (TSH) 1.750 uIU/mL (0.358-3.74) Laboratory Tests Test 03/06/20 06:17 Triglycerides Level 94 mg/dL (0-150) Cholesterol Level 137 mg/dL (0-200) LDL Cholesterol, Calculated 83 mg/dL (0-100) VLDL Cholesterol, Calculated 19 mg/dL (0-40) Non-HDL Cholesterol Calculated 102 mg/dL (0-129) HDL Cholesterol 35 mg/dL (40-60) Cholesterol/HDL Ratio 3.9 Thyroid Stimulating Hormone (TSH) 1.750 uIU/mL (0.358-3.74) Medications Active Scripts Medications Dose Route/Sig Max Daily Dose Days Date Category Proair Hfa Inhaler (Albuterol Sulfate) 8.5 Gm Hfa.aer.ad 2 Puff IH PRN Q4-6HRS PRN 21 03/02/20 Reported Polyethylene Glycol 3350 2,500 Gm Powder 2,500 Gm MC PRN DAILY PRN 03/01/20 Reported Pantoprazole Sodium (Pantoprazole Sodium) 40 Mg Tablet.dr 40 Mg PO DAILYAC 03/01/20 Reported Sucralfate 1 Gm/10 Ml Oral.susp 10 Ml PO DAILY 03/01/20 Reported Senna Laxative (Sennosides) 8.6 Mg Tablet 2 Tab PO PRN TID PRN 30 03/01/20 Reported Docusate Sodium 50 Mg/5 Ml Liquid 50 Mg PO DAILY 03/01/20 Reported Kaopectate (Bismuth Subsalicylate) 262 Mg Tablet 262 Mg PO TID 03/01/20 Reported Peridex (Chlorhexidine Gluconate) 15 Ml Mouthwash 15 Ml PO BID 30 03/01/20 Reported Singulair Tablet (Montelukast Sodium) 10 Mg Tablet 10 Mg PO HS 03/01/20 Reported Hydroxyzine Hcl 25 Mg Tablet 1 Tab PO TID 03/01/20 Reported Zoloft (Sertraline Hcl) 100 Mg Tablet 1 Tab PO DAILY 03/01/20 Reported Clonazepam 1 Mg Tablet 1 Mg PO TID 03/01/20 Reported Acetaminophen 325 Mg Tablet 3 Tab PO PRN Q6-8HRS PRN 24 03/01/20 Reported Tramadol Hcl 50 Mg Tablet 50 Mg PO PRN BID PRN 03/01/20 Reported Amlodipine Besylate 10 Mg Tablet 10 Mg PO DAILY 03/01/20 Reported Amlodipine Besylate 10 Mg Tablet 10 Mg PO DAILY 03/01/20 Reported Ferrousul (Ferrous Sulfate) 325 Mg Tablet 1 Tab PO DAILY 30 03/01/20 Reported Flomax (Tamsulosin Hcl) 0.4 Mg Cap.er.24h 0.4 Mg PO DAILY 03/01/20 Reported Striverdi Respimat (Olodaterol HCl) 4 Gm Mist.inhal 4 Gm IH DAILY 03/01/20 Reported Nystatin 100,000 Unit/1 Ml Oral.susp 5 Ml PO QID 03/01/20 Reported Comments cxr 03/05 reviewed. small apical PTX, sc air Impression . 1. Acute respiratory failure, multifactorial in etiology including right pneumothorax, rib fractures ? lung contusion, chronic obstructive pulmonary disease. 2. Status post fall. 3. Abnormal chest x-ray.with sc air, tiny right PTX 4. Rib fractures. 5. Right pneumothorax, status post chest tube placement.,persistent small air leak 6. Chronic obstructive pulmonary disease. 7. History of cerebrovascular accident. 8. B Coronary artery disease. 9. Alcohol abuse per history. 10. Hypertension. 11. COVID-19 PUI. 12. Tobacco habituation. Plan . P 1. Titrate FiO2 to keep O2 saturation more than 92%. 2. d/w RN, avoid any kinking, I had flushed the chest tube and attached it directly to pleurovac, removed Heimlick valve 3. Continue chest tube to suction. Persistent air leak and sc air, tiny right apical Ptx, ct chest today 4. Continue antibiotic. 5. Pepcid for stress ulcer prophylaxis. 6. SCDs for DVT prophylaxis. 7. bronchodilator 8. The findings and recommendations were discussed with RN./Dr Reji May need endobronchial valve vs VATS ,if PTX persist by next week VANNA GRESHAM MD Mar 06, 2020 11:24
--- NOTE | 2020-03-06 12:46 | PDOC ---
SHAMIKA DORAN ADVERTISING PROJECT MANAGER 03/06/20 1246: CARDIO Progress Notes Date and Time Date of Service 03/06/20 Time of Evaluation 1210 Subjective Subjective: No Chest Pain, No Palpitations, Other (confused ) Vitals Vitals Vital Signs Date Time Temp Pulse Resp B/P (MAP) Pulse Ox O2 Delivery O2 Flow Rate FiO2 03/06/20 10:39 98.0 105 22 166/80 (108) 96 Nasal Cannula 2.0 98.0 Weight Weight [ ] Input and Output Intake and Output Intake and Output 03/06/20 07:00 Intake Total 0 ml Output Total 2910 ml Balance -2910 ml Intake Oral 0 ml Output Urine Total 2800 ml Chest Tube Drainage Total 110 ml Laboratory Labs Laboratory Tests Test 03/06/20 06:17 Triglycerides Level 94 mg/dL (0-150) Cholesterol Level 137 mg/dL (0-200) LDL Cholesterol, Calculated 83 mg/dL (0-100) VLDL Cholesterol, Calculated 19 mg/dL (0-40) Non-HDL Cholesterol Calculated 102 mg/dL (0-129) HDL Cholesterol 35 mg/dL (40-60) Cholesterol/HDL Ratio 3.9 Thyroid Stimulating Hormone (TSH) 1.750 uIU/mL (0.358-3.74) Physical Exam HEENT: Neck Supple W Full Motion Chest: Symmetric LUNGS: Other (right CT) Heart: RRR (ST) Abdomen: Soft N/T Extremities: No Edema Neurology: alert, confused, other (agitated ) Assessment Assessment 1. Acute respiratory failure with right side pneumothorax: Covid negative, chest tube in place. CXR shows pneumothorax improved. CT chest pending. Continue as per pulmonary 2. Syncope with traumatic fall sustaining multiple rib fractures: so far no arrhythmias 3. Metabolic encephalopathy with possible delirium 4. HTN urgency; labile. Continue Enalapril IV while NPO. Will discontinue nitro paste and add clonidine patch. Hydralazine IV PRN 4. Hx of PTSD and alcoholism 5. HX of stroke and CEA 6. CAD: details unclear. CP free. Echo with preserved LV systolic function. LDL 83 7. Reactive sinus tachycardia; improved. Will check TSH Justicifation of Admission Dx: Justifications for Admission: Justification of Admission Dx: Yes JOYCELYN ZAMARRIPA MD 03/06/20 9110: CARDIO Progress Notes Assessment Assessment Patient seen and examined Acute respiratory failure with right side pneumothorax: Covid negative, chest tube in place. CXR shows pneumothorax improved. Continue as per pulmonary Syncope with traumatic fall sustaining multiple rib fractures: no arrhythmias HTN urgency; labile. Continue Enalapril IV while NPO. Will discontinue nitro paste and add clonidine patch. Hydralazine IV PRN Hx of PTSD and alcoholism HX of stroke and CEA CAD: details unclear. CP free. Echo with preserved LV systolic function. LDL 83 SHAMIKA DORAN APRN Mar 06, 2020 12:46 JOYCELYN ZAMARRIPA MD Mar 06, 2020 18:30
[2020-03-06] MEDS: AMINO AC 3%/ELECTROLYTE/GLYCER 1,000 ML IV SCH ×2 (12:53→23:21)
--- NOTE | 2020-03-06 13:24 | PDOC2 ---
NEUROLOGY CONSULT Date of Service DOS: DATE: 03/06/20 TIME: 13:17 Reason for Consult Reason for Consult: Anoxic encephalopathy Referring Physician Referring Physician: Dr. Mendoza Source Source: Chart review, Patient History of Present Illness History of Present Illness The patient is a 64-year-old right-handed male transferred 8 days ago from [facility] after an apparent overdose with fall, pneumothorax, rib fractures. He never was intubated. He has an extensive psychiatric history treated at the [facility]. He denies any history of stroke, seizure, or other head injury. He is not a reliable historian, though, and nursing history states that he has had a stroke. No one has witnessed any seizure activity here. Past Medical History Cardiovascular: HTN Pulmonary: COPD, Other (Sleep apnea) CENTRAL NERVOUS SYSTEM: CVA, TIA GI: GERD Heme/Onc: Anemia NOS Psych: Addictions, Bipolar, Depression, Other (Post traumatic stress disorder, affective disorder) Endocrine: Diabetes Past Surgical History Past Surgical History: Other (Chest tubes) Family History Family History: No pertinent hx Social History Social History Tobacco and alcohol use Current Medications Current Medications Current Medications Morphine Sulfate (Morphine Sulfate) 4 mg PRN Q4HRS PRN IV PAIN MILD TO MOD Last administered on 03/06/20at 09:01; Start 03/01/20 at 20:45 Ondansetron HCl (Zofran) 4 mg PRN Q4HRS PRN IVP NAUSEA/VOMITING; Start 03/01/20 at 20:45 Meropenem 1 gm/ Sodium Chloride 100 ml @ 200 mls/hr Q8HRS IV Last administered on 03/06/20at 05:51; Start 03/01/20 at 22:00 Vancomycin HCl (Vanco Per Pharmacy) 1 each PRN DAILY PRN MC SEE COMMENTS Last administered on 03/04/20at 10:43; Start 03/01/20 at 21:30; Stop 03/04/20 at 14:16; Status DC Vancomycin HCl 1.5 gm/Sodium Chloride 500 ml @ 250 mls/hr 1X ONCE IV Last a dministered on 03/01/20at 22:39; Start 03/01/20 at 22:00; Stop 03/01/20 at 23:59; Status DC Hydromorphone HCl (Dilaudid) 2 mg PRN Q4HRS PRN IVP SEVERE PAIN 7-10 Last administered on 03/01/20at 23:33; Start 03/01/20 at 23:15 Haloperidol Lactate (Haldol Inj) 5 mg PRN Q6HRS PRN IVP AGITATION, 2nd choice Last administered on 03/06/20at 05:51; Start 03/02/20 at 00:45 Dexmedetomidine HCl 400 mcg/ Sodium Chloride 100 ml @ 0 mls/hr CONT PRN IV Agitation, see comments Last administered on 03/02/20at 17:00; Start 03/02/20 at 00:45; Stop 03/05/20 at 19:07; Status DC Vancomycin HCl 1 gm/Sodium Chloride 250 ml @ 250 mls/hr Q12H IV Last admini stered on 03/03/20at 10:02; Start 03/02/20 at 10:00; Stop 03/03/20 at 12:00; Status DC Vancomycin HCl (Vancomycin Trough Level) 1 each 1X ONCE MC Last administered on 03/03/20at 09:30; Start 03/03/20 at 09:30; Stop 03/03/20 at 09:31; Status DC Albuterol Sulfate (Ventolin Neb Soln) 3 mg PRN Q4HRS PRN INH wheezing; Start 03/02/20 at 09:15; Stop 03/02/20 at 10:24; Status DC Amlodipine Besylate (Norvasc) 10 mg DAILY PO Last administered on 03/03/20at 08:14; Start 03/02/20 at 10:00 Docusate Sodium (Colace Solution) 50 mg DAILY PO Last administered on 03/03/20at 08:15; Start 03/02/20 at 10:00 Ferrous Sulfate (Feosol) 325 mg DAILY PO Last administered on 03/03/20at 08:13; Start 03/02/20 at 10:00 Hydroxyzine HCl (Atarax) 25 mg TID PO Last administered on 03/03/20 21:28; Start 03/02/20 at 14:00 Montelukast Sodium (Singulair) 10 mg HS PO Last administered on 03/03/20at 21:28; Start 03/02/20 at 21:00 Pantoprazole Sodium (Protonix) 40 mg DAILYAC PO Last administered on 03/03/20at 08:14; Start 03/02/20 at 10:00; Stop 03/05/20 at 19:06; Status DC Sennosides (Senna) 17.2 mg PRN TID PRN PO CONSTIPATION 1ST CHOICE; Start 03/02/20 at 09:15 Sucralfate (Carafate) 1 gm DAILY PO Last administered on 03/03/20at 08:14; Start 03/03/20 at 09:00 Tamsulosin HCl (Flomax) 0.4 mg DAILY PO Last administered on 03/03/20at 08:14; Start 03/02/20 at 10:00 Clonazepam (KlonoPIN) 1 mg TID PO Last administered on 03/03/20at 21:28; Start 03/02/20 at 14:00 Non-Formulary Medication (Olodaterol HCl (Striverdi Respimat)) 4 gm DAILY IH ; Start 03/03/20 at 09:00; Status UNV Polyethylene Glycol (miraLAX PACKET) 17 gm PRN DAILY PRN PO CONSTIPATION 2ND CHOICE; Start 03/03/20 at 09:00 Sertraline HCl (Zoloft) 100 mg DAILY PO Last administered on 03/03/20at 08:13; Start 03/03/20 at 09:00 Enoxaparin Sodium (Lovenox 40mg Syringe) 40 mg Q24H SQ Last administered on 03/06/20at 09:02; Start 03/02/20 at 09:15 Albuterol Sulfate (Ventolin Hfa) 1 puff PRN Q4HRS PRN INH SHORTNESS OF BREATH Last administered on 03/03/20at 04:36; Start 03/02/20 at 10:30 Guaifenesin (Mucinex) 600 mg BID PO Last administered on 03/03/20at 21:28; Start 03/02/20 at 21:00 Vancomycin HCl 1 gm/Sodium Chloride 250 ml @ 250 mls/hr Q8H IV Last administered on 03/04/20at 10:55; Start 03/03/20 at 18:00; Stop 03/04/20 at 14:16; Status DC Vancomycin HCl (Vancomycin Trough Level) 1 each 1X ONCE MC ; Start 03/04/20 at 17:30; Stop 03/04/20 at 14:17; Status DC Lactobacillus Rhamnosus (Culturelle) 1 cap BID PO Last administered on 03/03/20at 21:28; Start 03/03/20 at 21:00 Potassium Chloride/Sodium Chloride 1,000 ml @ 100 mls/hr Q10H IV Last administered on 03/06/20at 03:42; Start 03/04/20 at 11:00; Stop 03/06/20 at 12:03; Status DC Hydralazine HCl (Apresoline Inj) 10 mg PRN Q4HRS PRN IVP ELEVATED BP, SEE COMMENTS Last administered on 03/06/20at 02:32; Start 03/04/20 at 10:15 Pantoprazole Sodium (PROTONIX VIAL for IV PUSH) 40 mg DAILYAC IVP Last administered on 03/06/20at 09:00; Start 03/04/20 at 11:30 Enalaprilat (Vasotec Inj) 1.25 mg Q6HRS IVP Last administered on 03/06/20at 12:52; Start 03/04/20 at 16:15 Nitroglycerin (Nitro-Bid Oint) 1 inch Q6HRS TP Last administered on 03/06/20at 12:53; Start 03/04/20 at 16:45 Amino Acids/ Glycerin/ Electrolytes 1,000 ml @ 80 mls/hr [id number] IV Last administered on 03/06/20at 12:53; Start 03/06/20 at 12:15 Active Scripts Active Reported Proair Hfa Inhaler (Albuterol Sulfate) 8.5 Gm Hfa.aer.ad 2 Puff IH PRN Q4-6HRS PRN 21 Days Polyethylene Glycol 3350 2,500 Gm Powder 2,500 Gm MC PRN DAILY PRN Pantoprazole Sodium (Pantoprazole Sodium) 40 Mg Tablet.dr 40 Mg PO DAILYAC Sucralfate 1 Gm/10 Ml Oral.susp 10 Ml PO DAILY Senna Laxative (Sennosides) 8.6 Mg Tablet 2 Tab PO PRN TID PRN 30 Days Docusate Sodium 50 Mg/5 Ml Liquid 50 Mg PO DAILY Kaopectate (Bismuth Subsalicylate) 262 Mg Tablet 262 Mg PO TID Peridex (Chlorhexidine Gluconate) 15 Ml Mouthwash 15 Ml PO BID 30 Days Singulair Tablet (Montelukast Sodium) 10 Mg Tablet 10 Mg PO HS Hydroxyzine Hcl 25 Mg Tablet 1 Tab PO TID Zoloft (Sertraline Hcl) 100 Mg Tablet 1 Tab PO DAILY Clonazepam 1 Mg Tablet 1 Mg PO TID Acetaminophen 325 Mg Tablet 3 Tab PO PRN Q6-8HRS PRN 24 Days Tramadol Hcl 50 Mg Tablet 50 Mg PO PRN BID PRN Amlodipine Besylate 10 Mg Tablet 10 Mg PO DAILY Amlodipine Besylate 10 Mg Tablet 10 Mg PO DAILY Ferrousul (Ferrous Sulfate) 325 Mg Tablet 1 Tab PO DAILY 30 Days Flomax (Tamsulosin Hcl) 0.4 Mg Cap.er.24h 0.4 Mg PO DAILY Striverdi Respimat (Olodaterol HCl) 4 Gm Mist.inhal 4 Gm IH DAILY Nystatin 100,000 Unit/1 Ml Oral.susp 5 Ml PO QID Allergies Allergies: Coded Allergies: Penicillins (Verified Allergy, Intermediate, 03/01/20) Sulfa (Sulfonamide Antibiotics) (Verified Allergy, Intermediate, 03/01/20) aspirin (Verified Allergy, Intermediate, 03/01/20) labetalol (Verified Allergy, Intermediate, 03/01/20) quetiapine (Verified Allergy, Intermediate, 03/01/20) zolpidem (Verified Allergy, Intermediate, 03/01/20) ROS Review of System Negative for fever, chills, weight loss, shortness of breath, chest pain, indigestion, hematochezia, melena, and dysuria. Full 14-point review of systems is negative. Physical Exam Physical Examination General: Well-developed, well-nourished white male in no acute distress HEENT: Normocephalic andatraumatic.Temporal arteriespulsatile and nontender. Neck: Supple without bruit, no meningismus Musculoskeletal: Stability:see neurologic. Gait exam:see neurologic. Tone:see neurologic.Strength:see neurologic. Neurological: Mental Status:orientation, memory, attention span/concentration, language, fund of knowledge: Dysarthric speech, knows he is in the hospital, does not know the date, follows simple command. Cranial Nerves:Pupils equal and reactive to light, extraocular movements areintact, visual woodward are full to confrontation. Facial sensation is normal. There is no facial asymmetry. Vestibulo-ocular reflex is intact. Palate elevates and tongue protrudes in midline. All other cranial related problems are negative except as mentioned before.Reflexes:1+ and symmetric with flexor plantar responses. Motor:3/5 strength. Coordination:Not cooperative. Gait:Not tested. Sensory:Responds to pinprick in all 4 extremities Vitals VITALS Vital Signs Date Time Temp Pulse Resp B/P (MAP) Pulse Ox O2 Delivery O2 Flow Rate FiO2 03/06/20 12:53 105 166/80 03/06/20 10:39 98.0 22 96 Nasal Cannula 2.0 98.0 Labs Labs Laboratory Tests Test 03/05/20 03:50 03/06/20 06:17 White Blood Count 8.9 x10^3/uL (4.0-11.0) Red Blood Count 3.53 x10^6/uL (4.30-5.70) Hemoglobin 9.5 g/dL (13.0-17.5) Hematocrit 29.4 % (39.0-53.0) Mean Corpuscular Volume 83 fL (79-100) Mean Corpuscular Hemoglobin 27 pg (25-35) Mean Corpuscular Hemoglobin Concent 32 g/dL (31-37) Red Cell Distribution Width 17.1 % (11.5-14.5) Platelet Count 471 x10^3/uL (140-400) Sodium Level 141 mmol/L (136-145) Potassium Level 3.4 mmol/L (3.5-5.1) Chloride Level 106 mmol/L (98-107) Carbon Dioxide Level 23 mmol/L (21-32) Anion Gap 12 (6-14) Blood Urea Nitrogen 9 mg/dL (8-26) Creatinine 0.5 mg/dL (0.7-1.3) Estimated GFR (Cockcroft-Gault) 166.9 BUN/Creatinine Ratio 18 (6-20) Glucose Level 101 mg/dL (70-99) Calcium Level 8.4 mg/dL (8.5-10.1) Magnesium Level 2.2 mg/dL (1.8-2.4) Total Bilirubin 0.5 mg/dL (0.2-1.0) Aspartate Amino Transf (AST/SGOT) 24 U/L (15-37) Alanine Aminotransferase (ALT/SGPT) 23 U/L (16-63) Alkaline Phosphatase 86 U/L (46-116) Total Protein 5.9 g/dL (6.4-8.2) Albumin 2.5 g/dL (3.4-5.0) Albumin/Globulin Ratio 0.7 (1.0-1.7) Triglycerides Level 94 mg/dL (0-150) Cholesterol Level 137 mg/dL (0-200) LDL Cholesterol, Calculated 83 mg/dL (0-100) VLDL Cholesterol, Calculated 19 mg/dL (0-40) Non-HDL Cholesterol Calculated 102 mg/dL (0-129) HDL Cholesterol 35 mg/dL (40-60) Cholesterol/HDL Ratio 3.9 Thyroid Stimulating Hormone (TSH) 1.750 uIU/mL (0.358-3.74) Laboratory Tests Test 03/06/20 06:17 Triglycerides Level 94 mg/dL (0-150) Cholesterol Level 137 mg/dL (0-200) LDL Cholesterol, Calculated 83 mg/dL (0-100) VLDL Cholesterol, Calculated 19 mg/dL (0-40) Non-HDL Cholesterol Calculated 102 mg/dL (0-129) HDL Cholesterol 35 mg/dL (40-60) Cholesterol/HDL Ratio 3.9 Thyroid Stimulating Hormone (TSH) 1.750 uIU/mL (0.358-3.74) Images Images CT HEAD AND CERVICAL SPINE WITHOUT CONTRAST, 03/01/2020, [facility] History: Reason: syncope, head injury / Spl. Instructions: / History: Comparison: CT head without contrast September 20162011. Procedure: Axial images are obtained of the head from the skull base through the vertex without IV contrast. Noncontrast helical CT of the cervical spine was performed. Axial, sagittal, and coronal reconstructions were obtained. Findings: Mild motion artifact degrades image quality. The ventricles and sulci are prominent, consistent with age-related cerebral atrophy. There is mild periventricular and subcortical white matter hypoattenuation. This is a nonspecific finding but is commonly due to chronic small vessel ischemic disease in a patient of this age. There is old lateral right cerebellar infarct. No mass-effect, midline shift, hemorrhage or obvious acute infarction is identified. Basilar cisterns are patent. Bone windows demonstrate no significant calvarial abnormality. There is prosthesis of the hard palate. Mucosal thickening left maxillary sinus. Mastoid air cells are well aerated. Prior surgery of left mastoid air cells. There is no evidence of acute fracture or acute malalignment of the cervical spine. The facet joints are intact but hypertrophic. The vertebral body alignment is maintained. There is subacute to chronic compression fracture at the superior endplate of T1. There is mild loss of height anteriorly. There is degenerative endplate spurring of the cervical spine. Disc spaces are relatively maintained. There is uncinate process hypertrophy of C5/C6. There are carotid artery calcifications. The visualized lung apices are clear. There is biapical moderate centrilobular emphysema. Question right pleural effusion or pleural thickening. IMPRESSION: 1. No acute intracranial abnormality. 2. No acute fracture of the cervical spine. 3. There is subacute to chronic compression fracture at the superior endplate of T1. 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 Alcohol abuse Acute respiratory failure, pneumothorax, rib fractures, chronic obstructive pulmonary disease, fall, history of cerebrovascular accident, coronary artery disease, hypertension. COVID-19 PUI. Recommendations: I see no need to repeat imaging studies of the brain or EEG Additional lab studies for reversible causes of dementia, see orders Rehabilitation modalities Thank you for let me help with the patient's care. MIN GONCALVES MD Mar 06, 2020 13:24
--- NOTE | 2020-03-06 14:22 | RAD ---
EXAM: AP View of the chest DATE: 03/06/2020 10:17 AM INDICATION: Pneumothorax COMPARISON: 03/05/2020 FINDINGS/IMPRESSION The heart is not enlarged. Aorta is tortuous. Right chest tube is in stable position. No definite right pneumothorax. Right-sided airspace opacities are essentially unchanged. Right chest wall gas is also unchanged. Rib fractures are better assessed on CT. Electronically signed by: Nolan Decker MD (03/06/2020 2:19 PM) DANYA
[2020-03-06 14:34] VITALS: BP 191/88
[2020-03-06] MEDS ORDERED: cloNIDine TTS-1 1 PATCH PATCH.TDWK TD SCH (15:00)
--- NOTE | 2020-03-06 15:25 | RAD ---
Chest CT without contrast Clinical indications: Persistent pneumothorax. TECHNIQUE: Noncontrast helical CT scanning of the chest was performed. Without IV contrast, the sensitivity to detect organ pathology is decreased. PQRS compliance Statement One or more of the following individualized dose reduction techniques were utilized for this study: 1. Automated exposure control 2. Adjustment of the mA and/or kV according to patient size 3. Use of iterative reconstruction technique COMPARISON: No previous chest CT available. FINDINGS: No enlarged thoracic lymphadenopathy is evident. No focal aneurysmal dilatation of the thoracic aorta is seen. The heart size is normal and no pericardial effusion is seen. Mild calcified atheromatous disease of the coronary arteries is seen. Small loculated pleural effusions are seen on the right side. These are located posteriorly. There is associated adjacent atelectasis or infiltrate of the right lung base. There is a small groundglass lung infiltrate within the posterior aspect of the lateral segment of the right middle lobe. Small loculated pneumothorax is seen posteriorly. Right-sided chest tube is seen extending into the anterior medial pleural space. This is seen against the anterior pleura reflection between the left and right lung. No pneumothorax is seen anteriorly. No pneumomediastinum is seen. Soft tissue emphysema is seen involving the right lateral chest extending anteriorly and posteriorly. There is minimal atelectasis within the lateral aspect of the left lower lung zone. No pneumothorax or pleural effusion is seen on the left side. No adrenal mass is evident. There is a moderate compression fracture of T11. There is a mild to moderate compression fracture of T4. No posterior protrusion of bony elements into the anterior aspect of the spinal canal is seen. No lytic process is seen. IMPRESSION: Right-sided chest tube in place. Small multiloculated pleural effusion is seen posteriorly on the right side. There is minimal posterior loculated pneumothorax on the right side. There is centrilobular emphysema bilaterally more prominently involving the upper lobes. No prominent bulla is seen. Small groundglass lung infiltrate within the lateral segment of the right middle lobe. Compressive atelectasis or infiltrate involving the posterior right lower lobe. Compression fractures of T4 and T11. Electronically signed by: Jimmy Wren MD (03/06/2020 3:22 PM) [id number]
[2020-03-06 19:24] VITALS: BP 141/79
[2020-03-06] MEDS: MONTELUKAST SODIUM 10 MG TABLET. PO SCH (20:31)
--- NOTE | 2020-03-06 21:06 | PN ---
DATE: 03/06/2020 SUBJECTIVE: The patient continued to be very confused, agitated, somewhat encephalopathic. I have never seen him before so I do not know his baseline; however, I spoke with his friend and apparently he moved from [place] only about 2 weeks ago. He has been up and about, able to walk and talk and take care of himself. He apparently had a syncopal episode and fell and hit his head after taking some sleeping medication, although the toxic screen done at the [facility] was negative and CT scan was negative. I wonder whether he has sustained anoxic encephalopathy before he arrived to the hospital there. When I examined him this morning, again he continued to be somewhat confused and mumbles words. He is restless, agitated, attempts to get his mittens out. He has also dysphagia, which is new obviously and has failed his swallowing evaluation multiple times. PHYSICAL EXAMINATION: GENERAL: When I examined him, he was pale, not jaundiced, cyanosed or thyromegaly. No jugular venous distention. No limb edema. VITAL SIGNS: His heart rate was 105, blood pressure was 166/80, temperature was 98, respiratory rate 22, and oxygen saturation was 96% on 2 liters of oxygen. HEAD, EYES, EARS, NOSE AND THROAT: Showed normocephalic, atraumatic. NECK: Supple. HEART: Showed normal first and second heart sounds. No gallop or murmur. CHEST: Shows central trachea, equal bilateral chest expansion, air entry, vesicular breath sounds. I could not appreciate any crepitation or rhonchi posteriorly. He has extensive subcutaneous emphysema on the right side. ABDOMEN: Scaphoid, soft, nontender. NEUROLOGIC: He continued to be very encephalopathic, confused, restless. His intake was 1150, output was 1645. LABORATORY DATA: As of yesterday, his white cell count was 8900, hemoglobin 9.5, hematocrit 29.4, MCV 83 and platelet count 471,000. Serum sodium 141, potassium 3.4, chloride 106, bicarbonate 23, anion gap of 12, BUN 9, creatinine 0.5, estimated GFR was 166 mL per minute. His glucose was 101, calcium was 8.4, magnesium was 2.2. Total bilirubin, AST, ALT, alkaline phosphatase were normal. Total protein 5.9, albumin was 2.5. Serum triglycerides 94, total cholesterol 137, LDL was 83, VLDL was 19, HDL was 35 and total cholesterol to HDL cholesterol ratio was 3.9. TSH was 1.750. ASSESSMENT: 1. Toxic metabolic encephalopathy. 2. Syncopal episode with fall sustaining right-sided multiple rib fractures. 3. Traumatic pneumothorax, status post chest tube placement. 4. Acute hypoxic respiratory failure. 5. The patient has multiple other medical problems including: A. Hypertension. B. Gastroesophageal reflux disease. C. Coronary artery disease. D. Anemia. E. Stroke with right carotid artery stenosis, status post right carotid endarterectomy. PLAN: My plan is I will switch him to TPN as he continued to have dysphagia and failed swallowing evaluation. Continue with IV antibiotic and I would also consult the neurologist to assist with his management. ENRIQUE BRAGG MD DR: CLARY/soraya JOB#: [id number] / [id number]
[2020-03-06 23:16] VITALS: BP 142/68
[2020-03-06] MEDS: ALBUTEROL SULFATE 8GM INHALER. INH PRN (23:37)
[2020-03-07] VITALS (7 sets, daily range): BP systolic 121–186; BP diastolic 73–96
[2020-03-07] MEDS: MEROPENEM 1 GM in IV NORMAL SALINE 100ML 100 ML IV SCH ×3 (05:51→21:52)
[2020-03-07] MEDS: ENALAPRILAT 1.25 MG/ML VIAL. IVP SCH ×3 (05:52→18:06)
[2020-03-07] MEDS: PANTOPRAZOLE IV PUSH 40 MG VIAL. IVP SCH (08:50)
[2020-03-07] MEDS: ENOXAPARIN 40 MG/0.4 ML SYRINGE. SQ SCH (08:51)
[2020-03-07] MEDS: DOCUSATE 100 MG/10 ML SOLUTION. PO SCH (09:00)
[2020-03-07] MEDS: TAMSULOSIN 0.4 MG CAP.ER.24H. PO SCH (09:00)
[2020-03-07] MEDS: SERTRALINE 50 MG TABLET. PO SCH (09:00)
[2020-03-07] MEDS: LACTOBACILLUS RHAMNOSUS GG 1 CAPSULE. PO SCH ×2 (09:00→21:51)
[2020-03-07] MEDS: clonazePAM 0.5 MG TABLET PO SCH ×3 (09:00→21:51)
[2020-03-07] MEDS: FERROUS SULFATE 325 MG TABLET. PO SCH (09:00)
[2020-03-07] MEDS: amLODIPine BESYLATE 10 MG TABLET PO SCH (09:00)
[2020-03-07] MEDS: hydrOXYzine 25 MG TABLET PO SCH ×3 (09:00→21:51)
[2020-03-07] MEDS: SUCRALFATE 1 GM/10 ML ORAL.SUSP. PO SCH (09:00)
[2020-03-07 09:25] LABS: HEMATOCRIT 30.8 % (39.0-53.0); HEMOGLOBIN 10.2 g/dL (13.0-17.5); RED BLOOD COUNT 3.71 x10^6/uL (4.30-5.70); RED CELL DISTRIBUTION WIDTH 17.2 % (11.5-14.5); WHITE BLOOD COUNT 9.5 x10^3/uL (4.0-11.0)
--- NOTE | 2020-03-07 09:36 | PN ---
DATE: 03/06/2020 SUBJECTIVE: The patient is resting, slightly propped up in bed, in no apparent respiratory distress. He continued to be very lethargic; however, he has received Ativan yesterday as he was extremely restless with attempts to get out of the bed. PHYSICAL EXAMINATION: GENERAL: When I examined him, he looked pale, somewhat cachectic, but no jaundice, cyanosis or thyromegaly. No jugular venous distention. No lower limb edema. VITAL SIGNS: Her heart rate was 98, blood pressure was 164/84, temperature was 98.5, respiratory rate 24 and oxygen saturation was 94% on 2 liters of oxygen. HEAD, EYES, EARS, NOSE AND THROAT: Showed normocephalic, atraumatic. NECK: Supple. HEART: Showed normal first and second heart sounds. No gallop or murmur. CHEST: Showed central trachea. Extensive subcutaneous crepitus on the right side; however, he has good air entry bilaterally. ABDOMEN: Scaphoid, soft, nontender. NEUROLOGIC: He continued to be extremely lethargic, but arousable. All his cranial nerves are intact. He moves extremities without difficulty. Apparently, he has failed his swallowing evaluation multiple times. He is n.p.o. His intake over the last 24 hours was incompletely recorded, output was 2910. LABORATORY DATA: He has no lab work done. His CT scan of the chest yesterday showed that there was right-sided chest tube in place, small multiloculated pleural effusion is seen posteriorly on the right side. There is minimal posterior loculated pneumothorax on the right side. There is intralobular emphysema bilaterally, more prominently involving the upper lobes. No prominent bullae seen. Small ground-glass lung infiltrate within the lateral segment of the right middle lobe compressive atelectasis or infiltrate involving the posterior right lower lobe. He also has compression fracture of T4-T11. His chest x-ray showed the heart is not enlarged. Aorta is tortuous, right chest tube in stable position. No definite right pneumothorax, right-sided airspace opacities are essentially unchanged. The right chest wall gas is also unchanged. Rib fractures are better assessed on the CT scan. ASSESSMENT: 1. 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 Winters. 2. The patient had syncopal episode with fall sustaining right-sided multiple rib fractures. 3. Traumatic pneumothorax, status post chest tube placement. 4. Acute hypoxic respiratory failure. 5. The patient has multiple other medical problems including: A. Hypertension. B. Gastroesophageal reflux disease. C. Coronary artery disease. D. Anemia. E. Stroke with right carotid artery stenosis, status post right carotid endarterectomy. PLAN: Plan is to keep the patient n.p.o., continue with TPN. Continue with IV fluid, and continue with IV antibiotic. I did consult Dr. Winters who apparently felt that this might be related to his alcoholism, although the possibility of anoxic encephalopathy is also there. He did not recommend any EEG. We will continue with chest tube management accordingly. ENRIQUE BRAGG MD DR: CLARY/soraya JOB#: [id number] / [id number]
[2020-03-07 09:43] LABS: ALBUMIN 2.5 g/dL (3.4-5.0); ALBUMIN/GLOBULIN RATIO 0.7 (1.0-1.7); CALCIUM 8.8 mg/dL (8.5-10.1); CREATININE 0.5 mg/dL (0.7-1.3); GFR 166.9; POTASSIUM 3.2 mmol/L (3.5-5.1); TOTAL BILIRUBIN 0.4 mg/dL (0.2-1.0); TOTAL PROTEIN 6.2 g/dL (6.4-8.2)
--- NOTE | 2020-03-07 09:45 | PDOC ---
PROGRESS NOTES Date of Service DATE: 03/07/20 TIME: 09:43 Assessment Encephalopathy, toxic, possibly anoxic, possible underlying Korsakoff dementia. Alcohol abuse Acute respiratory failure, pneumothorax, rib fractures, chronic obstructive pulmonary disease, fall, history of cerebrovascular accident, coronary artery disease, hypertension. COVID-19 PUI. Plan I see no need to repeat imaging studies of the brain or EEG Await B12 level Rehabilitation modalities SNU/LTAC Subjective None Objective Vital Signs Date Time Temp Pulse Resp B/P (MAP) Pulse Ox O2 Delivery O2 Flow Rate FiO2 03/07/20 07:05 98.5 98 24 164/84 (110) 94 Nasal Cannula 2.0 98.5 Intake and Output 03/07/20 07:00 Intake Total 100 ml Output Total 2450 ml Balance -2350 ml Intake Oral 0 ml IV Total 100 ml Output Urine Total 2450 ml PHYSICAL EXAM Sleepy, lurched a voice, speech is dysarthria, knows that he is in a hospital and can tell me his name PERRL. EOMI. CN: no focal findings. Muscle tone: normal. Muscle strength: 3/5 DTR: 1+ Plantar reflex: flexor Gait: not examined in bed. Sensory exam: no abnormal findings. No cerebellar signs elicited. Review of Relevant I have reviewed the following items mary (where applicable) has been applied. Labs Laboratory Tests Test 03/06/20 06:17 03/07/20 09:05 Triglycerides Level 94 mg/dL (0-150) Cholesterol Level 137 mg/dL (0-200) LDL Cholesterol, Calculated 83 mg/dL (0-100) VLDL Cholesterol, Calculated 19 mg/dL (0-40) Non-HDL Cholesterol Calculated 102 mg/dL (0-129) HDL Cholesterol 35 mg/dL (40-60) Cholesterol/HDL Ratio 3.9 Thyroid Stimulating Hormone (TSH) 1.750 uIU/mL (0.358-3.74) White Blood Count 9.5 x10^3/uL (4.0-11.0) Red Blood Count 3.71 x10^6/uL (4.30-5.70) Hemoglobin 10.2 g/dL (13.0-17.5) Hematocrit 30.8 % (39.0-53.0) Mean Corpuscular Volume 83 fL (79-100) Mean Corpuscular Hemoglobin 27 pg (25-35) Mean Corpuscular Hemoglobin Concent 33 g/dL (31-37) Red Cell Distribution Width 17.2 % (11.5-14.5) Platelet Count 499 x10^3/uL (140-400) Laboratory Tests Test 03/07/20 09:05 White Blood Count 9.5 x10^3/uL (4.0-11.0) Red Blood Count 3.71 x10^6/uL (4.30-5.70) Hemoglobin 10.2 g/dL (13.0-17.5) Hematocrit 30.8 % (39.0-53.0) Mean Corpuscular Volume 83 fL (79-100) Mean Corpuscular Hemoglobin 27 pg (25-35) Mean Corpuscular Hemoglobin Concent 33 g/dL (31-37) Red Cell Distribution Width 17.2 % (11.5-14.5) Platelet Count 499 x10^3/uL (140-400) Medications Current Medications Morphine Sulfate (Morphine Sulfate) 4 mg PRN Q4HRS PRN IV PAIN MILD TO MOD Last administered on 03/06/20at 09:01; Start 03/01/20 at 20:45 Ondansetron HCl (Zofran) 4 mg PRN Q4HRS PRN IVP NAUSEA/VOMITING; Start 03/01/20 at 20:45 Meropenem 1 gm/ Sodium Chloride 100 ml @ 200 mls/hr Q8HRS IV Last administered on 03/07/20at 05:51; Start 03/01/20 at 22:00 Vancomycin HCl (Vanco Per Pharmacy) 1 each PRN DAILY PRN MC SEE COMMENTS Last administered on 03/04/20at 10:43; Start 03/01/20 at 21:30; Stop 03/04/20 at 14:16; Status DC Vancomycin HCl 1.5 gm/Sodium Chloride 500 ml @ 250 mls/hr 1X ONCE IV Last administered on 03/01/20at 22:39; Start 03/01/20 at 22:00; Stop 03/01/20 at 23:59; Status DC Hydromorphone HCl (Dilaudid) 2 mg PRN Q4HRS PRN IVP SEVERE PAIN 7-10 Last administered on 03/01/20at 23:33; Start 03/01/20 at 23:15 Haloperidol Lactate (Haldol Inj) 5 mg PRN Q6HRS PRN IVP AGITATION, 2nd choice Last administered on 03/06/20at 17:21; Start 03/02/20 at 00:45 Dexmedetomidine HCl 400 mcg/ Sodium Chloride 100 ml @ 0 mls/hr CONT PRN IV Agitation, see comments Last administered on 03/02/20at 17:00; Start 03/02/20 at 00:45; Stop 03/05/20 at 19:07; Status DC Vancomycin HCl 1 gm/Sodium Chloride 250 ml @ 250 mls/hr Q12H IV Last administered on 03/03/20at 10:02; Start 03/02/20 at 10:00; Stop 03/03/20 at 12:00; Status DC Vancomycin HCl (Vancomycin Trough Level) 1 each 1X ONCE MC Last administered on 03/03/20at 09:30; Start 03/03/20 at 09:30; Stop 03/03/20 at 09:31; Status DC Albuterol Sulfate (Ventolin Neb Soln) 3 mg PRN Q4HRS PRN INH wheezing; Start 03/02/20 at 09:15; Stop 03/02/20 at 10:24; Status DC Amlodipine Besylate (Norvasc) 10 mg DAILY PO Last administered on 03/03/20at 08:14; Start 03/02/20 at 10:00 Docusate Sodium (Colace Solution) 50 mg DAILY PO Last administered on 03/03/20at 08:15; Start 03/02/20 at 10:00 Ferrous Sulfate (Feosol) 325 mg DAILY PO Last administered on 03/03/20at 08:13; Start 03/02/20 at 10:00 Hydroxyzine HCl (Atarax) 25 mg TID PO Last administered on 03/03/20at 21:28; Start 03/02/20 at 14:00 Montelukast Sodium (Singulair) 10 mg HS PO Last administered on 03/03/20at 21:28; Start 03/02/20 at 21:00 Pantoprazole Sodium (Protonix) 40 mg DAILYAC PO Last administered on 03/03/20at 08:14; Start 03/02/20 at 10:00; Stop 03/05/20 at 19:06; Status DC Sennosides (Senna) 17.2 mg PRN TID PRN PO CONSTIPATION 1ST CHOICE; Start 03/02/20 at 09:15 Sucralfate (Carafate) 1 gm DAILY PO Last administered on 03/03/20at 08:14; Start 03/03/20 at 09:00 Tamsulosin HCl (Flomax) 0.4 mg DAILY PO Last administered on 03/03/20at 08:14; Start 03/02/20 at 10:00 Clonazepam (KlonoPIN) 1 mg TID PO Last administered on 03/03/20at 21:28; Start 03/02/20 at 14:00 Non-Formulary Medication (Olodaterol HCl (Striverdi Respimat)) 4 gm DAILY IH ; Start 03/03/20 at 09:00; Status UNV Polyethylene Glycol (miraLAX PACKET) 17 gm PRN DAILY PRN PO CONSTIPATION 2ND CHOICE; Start 03/03/20 at 09:00 Sertraline HCl (Zoloft) 100 mg DAILY PO Last administered on 03/03/20at 08:13; Start 03/03/20 at 09:00 Enoxaparin Sodium (Lovenox 40mg Syringe) 40 mg Q24H SQ Last administered on 03/07/20at 08:51; Start 03/02/20 at 09:15 Albuterol Sulfate (Ventolin Hfa) 1 puff PRN Q4HRS PRN INH SHORTNESS OF BREATH Last administered on 03/06/20at 23:37; Start 03/02/20 at 10:30 Guaifenesin (Mucinex) 600 mg BID PO Last administered on 03/03/20at 21:28; Start 03/02/20 at 21:00 Vancomycin HCl 1 gm/Sodium Chloride 250 ml @ 250 mls/hr Q8H IV Last administered on 03/04/20at 10:55; Start 03/03/20 at 18:00; Stop 03/04/20 at 14:16; Status DC Vancomycin HCl (Vancomycin Trough Level) 1 each 1X ONCE MC ; Start 03/04/20 at 17:30; Stop 03/04/20 at 14:17; Status DC Lactobacillus Rhamnosus (Culturelle) 1 cap BID PO Last administered on 03/03/20at 21:28; Start 03/03/20 at 21:00 Potassium Chloride/Sodium Chloride 1,000 ml @ 100 mls/hr Q10H IV Last administered on 03/06/20at 03:42; Start 03/04/20 at 11:00; Stop 03/06/20 at 12:03; Status DC Hydralazine HCl (Apresoline Inj) 10 mg PRN Q4HRS PRN IVP ELEVATED BP, SEE COMMENTS Last administered on 03/06/20at 14:38; Start 03/04/20 at 10:15 Pantoprazole Sodium (PROTONIX VIAL for IV PUSH) 40 mg DAILYAC IVP Last administered on 03/07/20at 08:50; Start 03/04/20 at 11:30 Enalaprilat (Vasotec Inj) 1.25 mg Q6HRS IVP Last administered on 03/07/20at 05:52; Start 03/04/20 at 16:15 Nitroglycerin (Nitro-Bid Oint) 1 inch Q6HRS TP Last administered on 03/06/20at 12:53; Start 03/04/20 at 16:45; Stop 03/06/20 at 14:45; Status DC Amino Acids/ Glycerin/ Electrolytes 1,000 ml @ 80 mls/hr [id number] IV Last administered on 03/06/20at 23:21; Start 03/06/20 at 12:15 Clonidine HCl (Catapres Tts-1) 1 patch WEEKLY TD Last administered on 03/06/20at 15:53; Start 03/06/20 at 15:00 Lorazepam (Ativan Inj) 0.5 mg PRN Q6HRS PRN IVP ANXIETY / AGITATION Last administered on 03/07/20at 00:04; Start 03/06/20 at 15:45 Active Scripts Active Reported Proair Hfa Inhaler (Albuterol Sulfate) 8.5 Gm Hfa.aer.ad 2 Puff IH PRN Q4-6HRS PRN 21 Days Polyethylene Glycol 3350 2,500 Gm Powder 2,500 Gm MC PRN DAILY PRN Pantoprazole Sodium (Pantoprazole Sodium) 40 Mg Tablet.dr 40 Mg PO DAILYAC Sucralfate 1 Gm/10 Ml Oral.susp 10 Ml PO DAILY Senna Laxative (Sennosides) 8.6 Mg Tablet 2 Tab PO PRN TID PRN 30 Days Docusate Sodium 50 Mg/5 Ml Liquid 50 Mg PO DAILY Kaopectate (Bismuth Subsalicylate) 262 Mg Tablet 262 Mg PO TID Peridex (Chlorhexidine Gluconate) 15 Ml Mouthwash 15 Ml PO BID 30 Days Singulair Tablet (Montelukast Sodium) 10 Mg Tablet 10 Mg PO HS Hydroxyzine Hcl 25 Mg Tablet 1 Tab PO TID Zoloft (Sertraline Hcl) 100 Mg Tablet 1 Tab PO DAILY Clonazepam 1 Mg Tablet 1 Mg PO TID Acetaminophen 325 Mg Tablet 3 Tab PO PRN Q6-8HRS PRN 24 Days Tramadol Hcl 50 Mg Tablet 50 Mg PO PRN BID PRN Amlodipine Besylate 10 Mg Tablet 10 Mg PO DAILY Amlodipine Besylate 10 Mg Tablet 10 Mg PO DAILY Ferrousul (Ferrous Sulfate) 325 Mg Tablet 1 Tab PO DAILY 30 Days Flomax (Tamsulosin Hcl) 0.4 Mg Cap.er.24h 0.4 Mg PO DAILY Striverdi Respimat (Olodaterol HCl) 4 Gm Mist.inhal 4 Gm IH DAILY Nystatin 100,000 Unit/1 Ml Oral.susp 5 Ml PO QID Vitals/I & O Vital Sign - Last 24 Hours 03/06/20 03/06/20 03/06/20 03/06/20 10:39 12:52 12:53 14:34 Temp 98.0 98.6 98.0 98.6 Pulse 105 105 105 115 Resp 22 B/P (MAP) 166/80 (108) 166/80 166/80 191/88 (122) Pulse Ox 96 95 O2 Delivery Nasal Cannula Nasal Cannula O2 Flow Rate 2.0 2.0 03/06/20 03/06/20 03/06/20 03/06/20 14:38 17:29 19:24 19:40 Temp 98.3 98.3 Pulse 106 120 122 Resp 22 B/P (MAP) 166/84 149/64 141/79 (99) Pulse Ox 95 O2 Delivery Nasal Cannula Nasal Cannula O2 Flow Rate 2.0 2.0 03/06/20 03/06/20 03/07/20 03/07/20 23:16 23:20 02:06 05:52 Temp 97.9 98.0 97.9 98.0 Pulse 113 113 104 104 Resp 24 24 B/P (MAP) 142/68 (92) 142/68 161/94 (116) 161/94 Pulse Ox 95 95 O2 Delivery Nasal Cannula Nasal Cannula O2 Flow Rate 2.0 2.0 03/07/20 07:05 Temp 98.5 98.5 Pulse 98 Resp 24 B/P (MAP) 164/84 (110) Pulse Ox 94 O2 Delivery Nasal Cannula O2 Flow Rate 2.0 Intake and Output 03/06/20 03/06/20 03/07/20 15:00 23:00 07:00 Intake Total 100 ml 0 ml Output Total 1350 ml 1100 ml Balance -1250 ml -1100 ml Justicifation of Admission Dx: Justifications for Admission: Justification of Admission Dx: Yes MIN GONCALVES MD Mar 07, 2020 09:45
--- NOTE | 2020-03-07 09:45 | RAD ---
One view chest Comparison 1 day prior HISTORY: Pleural effusion, infiltrate FINDINGS: A right thoracostomy tube is seen in place. A persistent right pleural effusion has increased in size in the interim. No pneumothorax is apparent. No new infiltrate is seen in the right lung. The left lung is clear. Heart and pulmonary vasculature are stable. IMPRESSION: Interval increase in size of a small right pleural effusion Right thoracostomy tube remains unchanged Right lung infiltrate infiltrates are stable Electronically signed by: Matt Gongora MD (03/07/2020 9:42 AM) [id number]
--- NOTE | 2020-03-07 11:20 | PDOC ---
[facility] [facility] PROGRESS NOTE Date of Service DOS: DATE: 03/07/20 TIME: 11:16 Chief Complaint Chief Complaint Shortness of breath. confusion. syncope. History of Present Illness History of Present Illness 03/07/2020 Pt seen and examined. FARHEEN RN and CM. Vitals/I&O Vitals/I&O: Vital Signs Date Time Temp Pulse Resp B/P (MAP) Pulse Ox O2 Delivery O2 Flow Rate FiO2 03/07/20 10:25 98.8 98 24 138/76 (96) 94 Nasal Cannula 2.0 98.8 I & O 03/06/20 03/06/20 03/07/20 15:00 23:00 07:00 Intake Total 100 ml 0 ml Output Total 1350 ml 1100 ml Balance -1250 ml -1100 ml Physical Exam General: Alert, Cooperative, No acute distress, Other (pleasently confused. ) Heart: Regular rate, Normal S1, Normal S2 Lungs: Clear, Other (sc air right side, front and back) Abdomen: Normal bowel sounds Extremities: Other (Mits noted to both hands for pt safety. ) Skin: No rashes, No significant lesion Labs Labs: Laboratory Tests Test 03/07/20 09:05 White Blood Count 9.5 x10^3/uL (4.0-11.0) Red Blood Count 3.71 x10^6/uL (4.30-5.70) Hemoglobin 10.2 g/dL (13.0-17.5) Hematocrit 30.8 % (39.0-53.0) Mean Corpuscular Volume 83 fL (79-100) Mean Corpuscular Hemoglobin 27 pg (25-35) Mean Corpuscular Hemoglobin Concent 33 g/dL (31-37) Red Cell Distribution Width 17.2 % (11.5-14.5) Platelet Count 499 x10^3/uL (140-400) Sodium Level 145 mmol/L (136-145) Potassium Level 3.2 mmol/L (3.5-5.1) Chloride Level 109 mmol/L (98-107) Carbon Dioxide Level 29 mmol/L (21-32) Anion Gap 7 (6-14) Blood Urea Nitrogen 11 mg/dL (8-26) Creatinine 0.5 mg/dL (0.7-1.3) Estimated GFR (Cockcroft-Gault) 166.9 BUN/Creatinine Ratio 22 (6-20) Glucose Level 116 mg/dL (70-99) Calcium Level 8.8 mg/dL (8.5-10.1) Total Bilirubin 0.4 mg/dL (0.2-1.0) Aspartate Amino Transf (AST/SGOT) 29 U/L (15-37) Alanine Aminotransferase (ALT/SGPT) 28 U/L (16-63) Alkaline Phosphatase 105 U/L (46-116) Total Protein 6.2 g/dL (6.4-8.2) Albumin 2.5 g/dL (3.4-5.0) Albumin/Globulin Ratio 0.7 (1.0-1.7) Vitamin B12 Level 383 pg/mL (247-911) Review of Systems Review of Systems: No cough. no fever. Assessment and Plan Assessmemt and Plan Assessment: Pneumothorax. Rib fractures. Toxic metabolic encephalopathy. Etoh abuse hx Stroke. Plan: Cardiac monitoring. IV PPN. IV Abx. PT OT Labs in AM. Full code. Appreciate subspecialty input. Comment Review of Relevant I have reviewed the following items mary (where applicable) has been applied. Medications: Current Medications Medications (Trade) Dose Ordered Sig/Raina Route PRN Reason Start Time Stop Time Status Last Admin Dose Admin Amino Acids/ Glycerin/ Electrolytes 1,000 ml @ 80 mls/hr [id number] IV 03/06/20 12:15 03/06/20 23:21 Clonidine HCl (Catapres Tts-1) 1 patch WEEKLY TD 03/06/20 15:00 03/06/20 15:53 Lorazepam (Ativan Inj) 0.5 mg PRN Q6HRS PRN IVP ANXIETY / AGITATION 03/06/20 15:45 03/07/20 00:04 Justifications for Admission Other Justification SHILOH MUNOZ III DO Mar 07, 2020 11:20
--- NOTE | 2020-03-07 12:03 | PDOC ---
PULMONARY PROGRESS NOTES DATE: 03/07/20 TIME: 12:00 Subjective Pt with no soa CXR no increase PTX ON CANULA Vitals Vital Signs Date Time Temp Pulse Resp B/P (MAP) Pulse Ox O2 Delivery O2 Flow Rate FiO2 03/07/20 10:25 98.8 98 24 138/76 (96) 94 Nasal Cannula 2.0 98.8 General: Alert, No acute distress Lungs: Clear, Other (sc air right side, front and back) Abdomen: Soft Extremities: No Edema Skin: Warm Labs Laboratory Tests Test 03/06/20 06:17 03/07/20 09:05 Triglycerides Level 94 mg/dL (0-150) Cholesterol Level 137 mg/dL (0-200) LDL Cholesterol, Calculated 83 mg/dL (0-100) VLDL Cholesterol, Calculated 19 mg/dL (0-40) Non-HDL Cholesterol Calculated 102 mg/dL (0-129) HDL Cholesterol 35 mg/dL (40-60) Cholesterol/HDL Ratio 3.9 Thyroid Stimulating Hormone (TSH) 1.750 uIU/mL (0.358-3.74) White Blood Count 9.5 x10^3/uL (4.0-11.0) Red Blood Count 3.71 x10^6/uL (4.30-5.70) Hemoglobin 10.2 g/dL (13.0-17.5) Hematocrit 30.8 % (39.0-53.0) Mean Corpuscular Volume 83 fL (79-100) Mean Corpuscular Hemoglobin 27 pg (25-35) Mean Corpuscular Hemoglobin Concent 33 g/dL (31-37) Red Cell Distribution Width 17.2 % (11.5-14.5) Platelet Count 499 x10^3/uL (140-400) Sodium Level 145 mmol/L (136-145) Potassium Level 3.2 mmol/L (3.5-5.1) Chloride Level 109 mmol/L (98-107) Carbon Dioxide Level 29 mmol/L (21-32) Anion Gap 7 (6-14) Blood Urea Nitrogen 11 mg/dL (8-26) Creatinine 0.5 mg/dL (0.7-1.3) Estimated GFR (Cockcroft-Gault) 166.9 BUN/Creatinine Ratio 22 (6-20) Glucose Level 116 mg/dL (70-99) Calcium Level 8.8 mg/dL (8.5-10.1) Total Bilirubin 0.4 mg/dL (0.2-1.0) Aspartate Amino Transf (AST/SGOT) 29 U/L (15-37) Alanine Aminotransferase (ALT/SGPT) 28 U/L (16-63) Alkaline Phosphatase 105 U/L (46-116) Total Protein 6.2 g/dL (6.4-8.2) Albumin 2.5 g/dL (3.4-5.0) Albumin/Globulin Ratio 0.7 (1.0-1.7) Vitamin B12 Level 383 pg/mL (247-911) Laboratory Tests Test 03/07/20 09:05 White Blood Count 9.5 x10^3/uL (4.0-11.0) Red Blood Count 3.71 x10^6/uL (4.30-5.70) Hemoglobin 10.2 g/dL (13.0-17.5) Hematocrit 30.8 % (39.0-53.0) Mean Corpuscular Volume 83 fL (79-100) Mean Corpuscular Hemoglobin 27 pg (25-35) Mean Corpuscular Hemoglobin Concent 33 g/dL (31-37) Red Cell Distribution Width 17.2 % (11.5-14.5) Platelet Count 499 x10^3/uL (140-400) Sodium Level 145 mmol/L (136-145) Potassium Level 3.2 mmol/L (3.5-5.1) Chloride Level 109 mmol/L (98-107) Carbon Dioxide Level 29 mmol/L (21-32) Anion Gap 7 (6-14) Blood Urea Nitrogen 11 mg/dL (8-26) Creatinine 0.5 mg/dL (0.7-1.3) Estimated GFR (Cockcroft-Gault) 166.9 BUN/Creatinine Ratio 22 (6-20) Glucose Level 116 mg/dL (70-99) Calcium Level 8.8 mg/dL (8.5-10.1) Total Bilirubin 0.4 mg/dL (0.2-1.0) Aspartate Amino Transf (AST/SGOT) 29 U/L (15-37) Alanine Aminotransferase (ALT/SGPT) 28 U/L (16-63) Alkaline Phosphatase 105 U/L (46-116) Total Protein 6.2 g/dL (6.4-8.2) Albumin 2.5 g/dL (3.4-5.0) Albumin/Globulin Ratio 0.7 (1.0-1.7) Vitamin B12 Level 383 pg/mL (247-911) Medications Active Scripts Medications Dose Route/Sig Max Daily Dose Days Date Category Proair Hfa Inhaler (Albuterol Sulfate) 8.5 Gm Hfa.aer.ad 2 Puff IH PRN Q4-6HRS PRN 21 03/02/20 Reported Polyethylene Glycol 3350 2,500 Gm Powder 2,500 Gm MC PRN DAILY PRN 03/01/20 Reported Pantoprazole Sodium (Pantoprazole Sodium) 40 Mg Tablet.dr 40 Mg PO DAILYAC 03/01/20 Reported Sucralfate 1 Gm/10 Ml Oral.susp 10 Ml PO DAILY 03/01/20 Reported Senna Laxative (Sennosides) 8.6 Mg Tablet 2 Tab PO PRN TID PRN 30 03/01/20 Reported Docusate Sodium 50 Mg/5 Ml Liquid 50 Mg PO DAILY 03/01/20 Reported Kaopectate (Bismuth Subsalicylate) 262 Mg Tablet 262 Mg PO TID 03/01/20 Reported Peridex (Chlorhexidine Gluconate) 15 Ml Mouthwash 15 Ml PO BID 30 03/01/20 Reported Singulair Tablet (Montelukast Sodium) 10 Mg Tablet 10 Mg PO HS 03/01/20 Reported Hydroxyzine Hcl 25 Mg Tablet 1 Tab PO TID 03/01/20 Reported Zoloft (Sertraline Hcl) 100 Mg Tablet 1 Tab PO DAILY 03/01/20 Reported Clonazepam 1 Mg Tablet 1 Mg PO TID 03/01/20 Reported Acetaminophen 325 Mg Tablet 3 Tab PO PRN Q6-8HRS PRN 24 03/01/20 Reported Tramadol Hcl 50 Mg Tablet 50 Mg PO PRN BID PRN 03/01/20 Reported Amlodipine Besylate 10 Mg Tablet 10 Mg PO DAILY 03/01/20 Reported Amlodipine Besylate 10 Mg Tablet 10 Mg PO DAILY 03/01/20 Reported Ferrousul (Ferrous Sulfate) 325 Mg Tablet 1 Tab PO DAILY 30 03/01/20 Reported Flomax (Tamsulosin Hcl) 0.4 Mg Cap.er.24h 0.4 Mg PO DAILY 03/01/20 Reported Striverdi Respimat (Olodaterol HCl) 4 Gm Mist.inhal 4 Gm IH DAILY 03/01/20 Reported Nystatin 100,000 Unit/1 Ml Oral.susp 5 Ml PO QID 03/01/20 Reported Comments cxr 03/07 reviewed. no PTX, sc air less Impression . 1. Acute respiratory failure, multifactorial in etiology including right pneumothorax, rib fractures ? lung contusion, chronic obstructive pulmonary disease. 2. Status post fall. 3. Abnormal chest x-ray. 4. Rib fractures. 5. Right pneumothorax, status post chest tube placement.,resolved air leak 6. Chronic obstructive pulmonary disease. 7. History of cerebrovascular accident. 8. B Coronary artery disease. 9. Alcohol abuse per history. 10. Hypertension. 11. COVID-19 PUI. 12. Tobacco habituation. Plan . P 1. Titrate FiO2 to keep O2 saturation more than 92%. 2. d/w RN, avoid any kinking, 3. chest tube to water seal today. cxr 03/07 with no PTX, ct chest with tiny PTX 4. Continue antibiotic. 5. Pepcid for stress ulcer prophylaxis. 6. SCDs for DVT prophylaxis. 7. bronchodilator 8. The findings and recommendations were discussed with RN./Dr Mendoza hold off on endobronchial valve vs VANNA MENA MD Mar 07, 2020 12:03
[2020-03-07] MEDS: AMINO AC 3%/ELECTROLYTE/GLYCER 1,000 ML IV SCH (12:32)
[2020-03-07] MEDS: POTASSIUM CHLORIDE 10MEQ 100 ML IV SCH ×4 (12:32→17:01)
[2020-03-07] MEDS: MORPHINE SULFATE 4 MG/ML VIAL. IV PRN (17:01)
--- NOTE | 2020-03-07 19:25 | NUR ---
Pt in bed assessment completed vss, pt alert to self only pt reoriented to surroundings. Pt has mitts in place and bed alarm is set. Pt not showing signs of pain will resume care and continue to monitor pt. Call light in reach.
[2020-03-07] MEDS: MONTELUKAST SODIUM 10 MG TABLET. PO SCH (21:52)
[2020-03-08] MEDS: ENALAPRILAT 1.25 MG/ML VIAL. IVP SCH ×3 (00:15→13:19)
[2020-03-08] MEDS: AMINO AC 3%/ELECTROLYTE/GLYCER 1,000 ML IV SCH (00:15)
[2020-03-08 02:43] VITALS: BP 187/92
[2020-03-08 05:04] LABS: HEMATOCRIT 32.9 % (39.0-53.0); HEMOGLOBIN 10.7 g/dL (13.0-17.5); RED BLOOD COUNT 3.95 x10^6/uL (4.30-5.70); RED CELL DISTRIBUTION WIDTH 17.5 % (11.5-14.5)
[2020-03-08 05:33] LABS: ALBUMIN 2.5 g/dL (3.4-5.0); ALBUMIN/GLOBULIN RATIO 0.7 (1.0-1.7); CREATININE 0.6 mg/dL (0.7-1.3); GFR 135.2; POTASSIUM 3.9 mmol/L (3.5-5.1); TOTAL BILIRUBIN 0.4 mg/dL (0.2-1.0); TOTAL PROTEIN 6.3 g/dL (6.4-8.2)
[2020-03-08] MEDS: PANTOPRAZOLE IV PUSH 40 MG VIAL. IVP SCH (05:43)
[2020-03-08] MEDS: MEROPENEM 1 GM in IV NORMAL SALINE 100ML 100 ML IV SCH (05:43)
[2020-03-08 07:00] VITALS: BP 163/78
[2020-03-08] MEDS: FERROUS SULFATE 325 MG TABLET. PO SCH (09:00)
[2020-03-08] MEDS: clonazePAM 0.5 MG TABLET PO SCH (09:00)
[2020-03-08] MEDS: SERTRALINE 50 MG TABLET. PO SCH (09:00)
[2020-03-08] MEDS: amLODIPine BESYLATE 10 MG TABLET PO SCH (09:00)
[2020-03-08] MEDS: hydrOXYzine 25 MG TABLET PO SCH (09:00)
[2020-03-08] MEDS: SUCRALFATE 1 GM/10 ML ORAL.SUSP. PO SCH (09:00)
[2020-03-08] MEDS: LACTOBACILLUS RHAMNOSUS GG 1 CAPSULE. PO SCH (09:00)
[2020-03-08] MEDS: DOCUSATE 100 MG/10 ML SOLUTION. PO SCH (09:00)
[2020-03-08] MEDS: TAMSULOSIN 0.4 MG CAP.ER.24H. PO SCH (09:00)
--- NOTE | 2020-03-08 09:50 | RAD ---
PORTABLE CHEST 1V 859 AM Clinical indications: Pneumothorax. Follow-up study. COMPARISON: March 07, 2020. FINDINGS/ IMPRESSION: Right-sided chest tube is unchanged in position. No pneumothorax is seen. Lateral subcutaneous soft tissue emphysema of the right chest wall is unchanged. Small right-sided pleural effusion is stable. Right lower lung zone infiltrate is unchanged. Acute right rib fractures are again evident. Old healed left sixth rib fracture is seen. Heart size and mediastinum are stable. Electronically signed by: Jimmy Wren MD (03/08/2020 9:47 AM) [id number]
[2020-03-08 11:00] VITALS: BP 128/80
--- NOTE | 2020-03-08 11:00 | SNU/HH DC ---
DISCHARGE ORDERS DISCHARGE INFORMATION: DISCHARGE DATE: Mar 08, 2020 FINAL DIAGNOSIS toxic anoxic encephalopathy traumatic pneumothorax multiple right sided rib fractures CONDITION ON DISCHARGE: Stable CODE STATUS: Code Status: Full LTAC: ADMIT TO LTAC: Yes POST DISCHARGE ORDERS: ACTIVITY ORDERS: Bedrest today DIET AFTER DISCHARGE: NPO TREATMENT/EQUIPMENT ORDERS: RESPIRATORY EQUIPMENT NEEDED: Oxygen Physical Therapy For: Evalulation/Treatment Occupational Therapy For: Evaluation/Treatment Speech Language Pathology For: Evaluation/Treatment DISCHARGE MEDICATIONS: Home Meds Reported Medications Albuterol Sulfate (PROAIR HFA INHALER) 8.5 Gm Hfa.aer.ad, 2 PUFF IH PRN Q4-6HRS PRN for wheezing for 21 Days, #1 INHALER 0 Refills 03/02/20 Polyethylene Glycol 3350 (POLYETHYLENE GLYCOL 3350) 2,500 Gm Powder, 2500 GM MC PRN DAILY PRN for CONSTIPATION, MISC 03/01/20 Pantoprazole Sodium (PANTOPRAZOLE SODIUM ) 40 Mg Tablet.dr, 40 MG PO DAILYAC for GERD, TAB 03/01/20 Sucralfate (SUCRALFATE) 1 Gm/10 Ml Oral.susp, 10 ML PO DAILY for gerd, #600 ML 1 Refill 03/01/20 Sennosides (SENNA LAXATIVE) 8.6 Mg Tablet, 2 TAB PO PRN TID PRN for CONSTIPATION for 30 Days, TAB 0 Refills 03/01/20 Docusate Sodium (DOCUSATE SODIUM) 50 Mg/5 Ml Liquid, 50 MG PO DAILY for constipation, LIQUID 03/01/20 Bismuth Subsalicylate (Kaopectate) 262 Mg Tablet, 262 MG PO TID for nausea, TAB 03/01/20 Chlorhexidine Gluconate (PERIDEX) 15 Ml Mouthwash, 15 ML PO BID for mouthwash for 30 Days, #946 ML 0 Refills 03/01/20 Montelukast Sodium (SINGULAIR TABLET ) 10 Mg Tablet, 10 MG PO HS for allergies, TAB 0 Refills 03/01/20 Hydroxyzine Hcl (HYDROXYZINE HCL) 25 Mg Tablet, 1 TAB PO TID for copd, #30 TAB 03/01/20 Sertraline Hcl (ZOLOFT) 100 Mg Tablet, 1 TAB PO DAILY for depression, #30 TAB 5 Refills 03/01/20 Clonazepam (CLONAZEPAM) 1 Mg Tablet, 1 MG PO TID for FOR ANXIETY, TAB 03/01/20 Acetaminophen (ACETAMINOPHEN) 325 Mg Tablet, 3 TAB PO PRN Q6-8HRS PRN for pain or fever for 24 Days, #100 TAB 0 Refills 03/01/20 Tramadol Hcl (TRAMADOL HCL) 50 Mg Tablet, 50 MG PO PRN BID PRN for PAIN, TAB 0 R efills 03/01/20 Amlodipine Besylate (AMLODIPINE BESYLATE) 10 Mg Tablet, 10 MG PO DAILY for HTN, TAB 03/01/20 Amlodipine Besylate (AMLODIPINE BESYLATE) 10 Mg Tablet, 10 MG PO DAILY for hyperlipidemia, TAB 03/01/20 Ferrous Sulfate (FERROUSUL) 325 Mg Tablet, 1 TAB PO DAILY for anemia for 30 Days, #30 TAB 0 Refills 03/01/20 Tamsulosin Hcl (FLOMAX) 0.4 Mg Cap.er.24h, 0.4 MG PO DAILY for BPH, TAB 03/01/20 Olodaterol HCl (Striverdi Respimat) 4 Gm Mist.inhal, 4 GM IH DAILY for copd, SPRAY 03/01/20 Nystatin (NYSTATIN) 100,000 Unit/1 Ml Oral.susp, 5 ML PO QID for thrush, #200 ML 03/01/20 ENRIQUE RBAGG MD Mar 08, 2020 11:00
--- NOTE | 2020-03-08 11:19 | PDOC ---
PULMONARY PROGRESS NOTES DATE: 03/08/20 TIME: 11:17 Subjective Pt with no soa CXR no increase PTX ON CANULA Vitals Vital Signs Date Time Temp Pulse Resp B/P (MAP) Pulse Ox O2 Delivery O2 Flow Rate FiO2 03/08/20 08:00 Nasal Cannula 2.0 03/08/20 07:00 98.7 106 18 163/78 (106) 95 98.7 General: Alert, No acute distress Lungs: Clear, Other (sc air right side, front and back) Abdomen: Soft Extremities: No Edema Skin: Warm Labs Laboratory Tests Test 03/07/20 09:05 03/08/20 04:00 White Blood Count 9.5 x10^3/uL (4.0-11.0) 11.0 x10^3/uL (4.0-11.0) Red Blood Count 3.71 x10^6/uL (4.30-5.70) 3.95 x10^6/uL (4.30-5.70) Hemoglobin 10.2 g/dL (13.0-17.5) 10.7 g/dL (13.0-17.5) Hematocrit 30.8 % (39.0-53.0) 32.9 % (39.0-53.0) Mean Corpuscular Volume 83 fL (79-100) 83 fL (79-100) Mean Corpuscular Hemoglobin 27 pg (25-35) 27 pg (25-35) Mean Corpuscular Hemoglobin Concent 33 g/dL (31-37) 32 g/dL (31-37) Red Cell Distribution Width 17.2 % (11.5-14.5) 17.5 % (11.5-14.5) Platelet Count 499 x10^3/uL (140-400) 535 x10^3/uL (140-400) Sodium Level 145 mmol/L (136-145) 144 mmol/L (136-145) Potassium Level 3.2 mmol/L (3.5-5.1) 3.9 mmol/L (3.5-5.1) Chloride Level 109 mmol/L (98-107) 108 mmol/L (98-107) Carbon Dioxide Level 29 mmol/L (21-32) 27 mmol/L (21-32) Anion Gap 7 (6-14) 9 (6-14) Blood Urea Nitrogen 11 mg/dL (8-26) 14 mg/dL (8-26) Creatinine 0.5 mg/dL (0.7-1.3) 0.6 mg/dL (0.7-1.3) Estimated GFR (Cockcroft-Gault) 166.9 135.2 BUN/Creatinine Ratio 22 (6-20) 23 (6-20) Glucose Level 116 mg/dL (70-99) 113 mg/dL (70-99) Calcium Level 8.8 mg/dL (8.5-10.1) 9.0 mg/dL (8.5-10.1) Total Bilirubin 0.4 mg/dL (0.2-1.0) 0.4 mg/dL (0.2-1.0) Aspartate Amino Transf (AST/SGOT) 29 U/L (15-37) 21 U/L (15-37) Alanine Aminotransferase (ALT/SGPT) 28 U/L (16-63) 25 U/L (16-63) Alkaline Phosphatase 105 U/L (46-116) 114 U/L (46-116) Total Protein 6.2 g/dL (6.4-8.2) 6.3 g/dL (6.4-8.2) Albumin 2.5 g/dL (3.4-5.0) 2.5 g/dL (3.4-5.0) Albumin/Globulin Ratio 0.7 (1.0-1.7) 0.7 (1.0-1.7) Vitamin B12 Level 383 pg/mL (247-911) Laboratory Tests Test 03/08/20 04:00 White Blood Count 11.0 x10^3/uL (4.0-11.0) Red Blood Count 3.95 x10^6/uL (4.30-5.70) Hemoglobin 10.7 g/dL (13.0-17.5) Hematocrit 32.9 % (39.0-53.0) Mean Corpuscular Volume 83 fL (79-100) Mean Corpuscular Hemoglobin 27 pg (25-35) Mean Corpuscular Hemoglobin Concent 32 g/dL (31-37) Red Cell Distribution Width 17.5 % (11.5-14.5) Platelet Count 535 x10^3/uL (140-400) Sodium Level 144 mmol/L (136-145) Potassium Level 3.9 mmol/L (3.5-5.1) Chloride Level 108 mmol/L (98-107) Carbon Dioxide Level 27 mmol/L (21-32) Anion Gap 9 (6-14) Blood Urea Nitrogen 14 mg/dL (8-26) Creatinine 0.6 mg/dL (0.7-1.3) Estimated GFR (Cockcroft-Gault) 135.2 BUN/Creatinine Ratio 23 (6-20) Glucose Level 113 mg/dL (70-99) Calcium Level 9.0 mg/dL (8.5-10.1) Total Bilirubin 0.4 mg/dL (0.2-1.0) Aspartate Amino Transf (AST/SGOT) 21 U/L (15-37) Alanine Aminotransferase (ALT/SGPT) 25 U/L (16-63) Alkaline Phosphatase 114 U/L (46-116) Total Protein 6.3 g/dL (6.4-8.2) Albumin 2.5 g/dL (3.4-5.0) Albumin/Globulin Ratio 0.7 (1.0-1.7) Medications Active Scripts Medications Dose Route/Sig Max Daily Dose Days Date Category Proair Hfa Inhaler (Albuterol Sulfate) 8.5 Gm Hfa.aer.ad 2 Puff IH PRN Q4-6HRS PRN 21 03/02/20 Reported Polyethylene Glycol 3350 2,500 Gm Powder 2,500 Gm MC PRN DAILY PRN 03/01/20 Reported Pantoprazole Sodium (Pantoprazole Sodium) 40 Mg Tablet.dr 40 Mg PO DAILYAC 03/01/20 Reported Sucralfate 1 Gm/10 Ml Oral.susp 10 Ml PO DAILY 03/01/20 Reported Senna Laxative (Sennosides) 8.6 Mg Tablet 2 Tab PO PRN TID PRN 30 03/01/20 Reported Docusate Sodium 50 Mg/5 Ml Liquid 50 Mg PO DAILY 03/01/20 Reported Kaopectate (Bismuth Subsalicylate) 262 Mg Tablet 262 Mg PO TID 03/01/20 Reported Peridex (Chlorhexidine Gluconate) 15 Ml Mouthwash 15 Ml PO BID 30 03/01/20 Reported Singulair Tablet (Montelukast Sodium) 10 Mg Tablet 10 Mg PO HS 03/01/20 Reported Hydroxyzine Hcl 25 Mg Tablet 1 Tab PO TID 03/01/20 Reported Zoloft (Sertraline Hcl) 100 Mg Tablet 1 Tab PO DAILY 03/01/20 Reported Clonazepam 1 Mg Tablet 1 Mg PO TID 03/01/20 Reported Acetaminophen 325 Mg Tablet 3 Tab PO PRN Q6-8HRS PRN 24 03/01/20 Reported Tramadol Hcl 50 Mg Tablet 50 Mg PO PRN BID PRN 03/01/20 Reported Amlodipine Besylate 10 Mg Tablet 10 Mg PO DAILY 03/01/20 Reported Amlodipine Besylate 10 Mg Tablet 10 Mg PO DAILY 03/01/20 Reported Ferrousul (Ferrous Sulfate) 325 Mg Tablet 1 Tab PO DAILY 30 03/01/20 Reported Flomax (Tamsulosin Hcl) 0.4 Mg Cap.er.24h 0.4 Mg PO DAILY 03/01/20 Reported Striverdi Respimat (Olodaterol HCl) 4 Gm Mist.inhal 4 Gm IH DAILY 03/01/20 Reported Nystatin 100,000 Unit/1 Ml Oral.susp 5 Ml PO QID 03/01/20 Reported Comments cxr 03/08 reviewed. no PTX, sc air less Impression . 1. Acute respiratory failure, multifactorial in etiology including right pneumothorax, rib fractures ? lung contusion, chronic obstructive pulmonary disease. 2. Status post fall. 3. Abnormal chest x-ray. 4. Rib fractures. 5. Right pneumothorax, status post chest tube placement.,resolved air leak 6. Chronic obstructive pulmonary disease. 7. History of cerebrovascular accident. 8. B Coronary artery disease. 9. Alcohol abuse per history. 10. Hypertension. 11. COVID-19 PUI. 12. Tobacco habituation. Plan . P 1. Titrate FiO2 to keep O2 saturation more than 92%. 2. d/w RN, avoid any kinking, 3. chest tube to water seal . cxr 03/08 with no PTX, ct chest with tiny PTX. will clamp in 24 hr from tomorrow 4. Continue antibiotic. 5. Pepcid for stress ulcer prophylaxis. 6. SCDs for DVT prophylaxis. 7. bronchodilator 8. The findings and recommendations were discussed with RN./Dr Mendoza hold off on endobronchial valve vs VATS ok with transfer to the [facility] VANNA GRESHAM MD Mar 08, 2020 11:19
--- NOTE | 2020-03-08 12:03 | DS ---
DATE OF DISCHARGE: 03/08/2020 DISCHARGE TRANSFER SUMMARY HOSPITAL COURSE: The patient is a 64-year-old male patient who was originally transferred from [facility] where he presented with altered mental status. He apparently overdosed on his sleep medication. It was reported that he was angry with his roommate as he would not take him to the [place]. He took 3 times his night sleeping medication and psych medication and shortly thereafter became dizzy and had syncopal episode. The patient fell and struck his right side of his head that resulted in 1 cm laceration. He normally follows at the [facility]. Apparently, the [facility] declined the patient because of the acuity and when he arrived to the Emergency Room of [facility], he was moving all his extremities to noxious stimuli. His pupils were pinpoint. He was extensively investigated with lab work and imaging studies and was admitted to ICU of [facility] with a syncopal episode; however, when I saw him in the ICU, he was clearly very short of breath and prior to that the nursing staff contacted me that he was clearly in respiratory distress and we did initial blood gases, which showed a pH of 7.33, pCO2 of 44, pO2 of 68 and bicarbonate 23. His oxygen saturation was 91% on FiO2 of 100%. A repeat chest x-ray showed that the patient has moderate right-sided pneumothorax with extensive chest wall gas noted. There are nondisplaced fracture of multiple right-sided ribs. He has also hyperinflation consistent with chronic obstructive pulmonary disease. There was no clear pleural effusion. The heart was not enlarged. Surgical clips are noted in the hiatus and therefore, the Emergency Room physician placed a chest tube; however, repeat chest x-ray showed that there is enlargement of the right-sided pneumothorax. Chest tube was improperly placed and therefore had another chest tube placed and a repeat chest x-ray showed complete expansion of the right lung without pneumothorax with continued extensive subcutaneous air noted in the right flank area and therefore, the patient was transferred to the ICU of [facility] where he was evaluated by the manager file as well as neurologist and Infectious Disease specialist. The patient continued to be encephalopathic and was seen by the neurologist. I did order a CT scan of the head, which was unremarkable and Dr. Winters did not recommend any further investigation as his lung has completely expanded and he remained hemodynamically stable. A decision was made to transfer him to [facility] to continue chest tube management, IV antibiotic. He has dysphagia and multiple bedside evaluation showed that he is consistently aspirating and therefore, he was kept n.p.o. and he is now on PPN. PHYSICAL EXAMINATION: GENERAL: When I saw him this morning, he was resting slightly propped up in bed, in no apparent respiratory distress. He was pale, no jaundice, cyanosis or thyromegaly. No jugular venous distention. No limb edema. VITAL SIGNS: His heart rate was 106, blood pressure was 163/78, temperature was 98.7, respiratory rate was 18, and oxygen saturation was 95% on 2 liters of oxygen. HEAD, EYES, EARS, NOSE AND THROAT: Showed normocephalic, atraumatic. NECK: Supple. CARDIAC: Normal first and second heart sounds. No gallop or murmur. CHEST: Showed central trachea, equal bilateral chest expansion, air entry ____. No crepitation or rhonchi posteriorly, however, he has extensive subcutaneous emphysema and crepitus over the right side of the chest and neck. ABDOMEN: Slightly distended, soft, nontender. NEUROLOGIC: He continued to be markedly encephalopathic. He mumbles his words and difficult to understand, however, all his cranial nerves are intact. He moves extremities spontaneously without any localizing sign. His intake over the last 24 hours was incompletely recorded, output was 2450. LABORATORY DATA: As of this morning, his white cell count was 11,000, hemoglobin 10.7, hematocrit 33, MCV 83, and platelet count of 535,000. His chemistry showed a serum sodium 144, potassium 3.9, chloride 108, bicarbonate 27, anion gap of 9, BUN 14, creatinine 0.6, estimated GFR was 35 mL per minute, his glucose 113, calcium was 9. Total bilirubin, AST, ALT, alkaline phosphatase were normal. Total protein was 6.3, albumin 2.5. His vitamin B12 was 383. TSH was 1.750. He has had an echocardiogram done, which showed that the left ventricular systolic function is normal, ejection fraction was 60%-65%. There is normal left ventricular segmental wall motion, trace to mild tricuspid regurgitation. The pulmonary artery pressure was estimated at 23 mmHg. There is no evidence of significant pericardial effusion. The patient was transferred to [facility] to continue on lorazepam 0.5 mg IV every 6 hours, clonidine TTS 1 patch topically once a week. He is on PPN at 80 mL per hour, enalaprilat 1.25 mg IV q.6 hours, Protonix 40 mg IV daily, hydralazine 10 mg IV every 4 hours for systolic pressure more than 160. He is on albuterol sulfate 1 puff every 4 hours, Lovenox 40 mg subcutaneously once a day, Haldol 5 mg IV every 6 hours for agitation, meropenem 1 gram IV every 8 hours, ondansetron 4 mg IV every 4 hours and morphine sulfate 4 mg IV every 4 hours as needed. FINAL DISCHARGE DIAGNOSES: 1. 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 Winters. 2. The patient had syncopal episode with fall sustaining right-sided multiple rib fractures. 3. Traumatic pneumothorax, status post chest tube placement. 4. Acute hypoxic respiratory failure. 5. The patient has multiple other medical problems including: A. Hypertension. B. Gastroesophageal reflux disease. C. Coronary artery disease. D. Anemia. E. Stroke with right carotid artery stenosis, status post right carotid endarterectomy. ENRIQUE BRAGG MD DR: CLARY/soraya JOB#: [id number] / [id number]
--- NOTE | 2020-03-08 12:30 | NUR ---
REPORT GIVNE TO NURSING STAFF AT THE [facility]. PIV AND HOFF IN PLACED. PATIENT OFF UNIT PER FIRE DEPARTMENT.
[2020-03-08 13:19] VITALS: BP 128/80
[2020-03-08] MEDS: ENOXAPARIN 40 MG/0.4 ML SYRINGE. SQ SCH (13:20)
== END 2020-03-08 13:52 | DRG 199 ==
LOC: 1 WEST ICU 20:13 → 2 SOUTH 03-04 18:51
PROVIDERS: ADMIT Internal Medicine; ATTEND Internal Medicine
PROC: 0W9B30Z Drainage of Left Pleural Cavity with Drainage Device, Percutaneous Approach (ICD-10-PCS; principal; 2020-03-04)
PROC: 0W9930Z Drainage of Right Pleural Cavity with Drainage Device, Percutaneous Approach (ICD-10-PCS; 2020-03-04)
DX: S27.0XXA Traumatic pneumothorax, initial encounter (principal); G92 Toxic encephalopathy; J96.01 Acute respiratory failure with hypoxia; S22.41XA Multiple fractures of ribs, right side, initial encounter for closed fracture; J81.1 Chronic pulmonary edema; S27.329A Contusion of lung, unspecified, initial encounter; G93.1 Anoxic brain damage, not elsewhere classified; D64.9 Anemia, unspecified; E11.9 Type 2 diabetes mellitus without complications; F10.10 Alcohol abuse, uncomplicated; F17.200 Nicotine dependence, unspecified, uncomplicated; F41.9 Anxiety disorder, unspecified; M19.90 Unspecified osteoarthritis, unspecified site; F31.9 Bipolar disorder, unspecified; F43.10 Post-traumatic stress disorder, unspecified; I10 Essential (primary) hypertension; I16.0 Hypertensive urgency; I25.10 Atherosclerotic heart disease of native coronary artery without angina pectoris; I65.21 Occlusion and stenosis of right carotid artery; I70.0 Atherosclerosis of aorta; J44.9 Chronic obstructive pulmonary disease, unspecified; K21.9 Gastro-esophageal reflux disease without esophagitis; R13.10 Dysphagia, unspecified; Z20.828 Contact with and (suspected) exposure to other viral communicable diseases; Z86.73 Personal history of transient ischemic attack (TIA), and cerebral infarction without residual deficits; Z91.19 Patient's noncompliance with other medical treatment and regimen; W18.39XA Other fall on same level, initial encounter; Y93.89 Activity, other specified; Y92.89 Other specified places as the place of occurrence of the external cause; Y99.8 Other external cause status; F04 Amnestic disorder due to known physiological condition
CPT/HCPCS: 36415; 70450; 71045; 71250; 80048; 80053; 80061; 80202; 82565; 82607; 83735; 84443; 85025; 85027; 93306; 99406; C9113; J0360; J1170; J1630; J1650; J2060; J2185; J2270; J2405; J3370; J3480; J3490; J7040; J7050; 92526-GN; 92610-GN; 97530-GO; 97535-GO; G0378; J7030